=== PATIENT | female | born 1970 | race Caucasian/White ===

== ENCOUNTER → 2022-08-12 14:48 | Outpatient (BNVA) | payer OTHER, SELFPAY | PROVIDERS: PCP Internal Medicine; Visit Provider Internal Medicine Endocrinology, Diabetes & Metabolism | DX: Z13.89 Encounter for screening for other disorder (principal) ==

== ENCOUNTER 2022-08-12 15:37 | Outpatient (REF) | payer OTHER, SELFPAY ==
[2022-08-16 16:39] LABS: Thyrotropin Receptor Antibody 5.48 IU/L (<=2.00)
== END 2022-08-12 15:38 | disposition home or self-care (01) ==
LOC: HO.LAB 15:37
PROVIDERS: Internal Medicine Endocrinology, Diabetes & Metabolism; PCP Physician Assistant; Visit Provider Physician Assistant
DX: E05.90 Thyrotoxicosis, unspecified without thyrotoxic crisis or storm (principal)
CPT/HCPCS: 36415; 83520

== ENCOUNTER 2022-08-25 09:27 | Outpatient (REF) | payer OTHER, SELFPAY ==
[2022-08-25 11:29] LABS: Alanine Aminotransferase 31 U/L (0-31); Albumin Level 3.9 g/dL (3.5-5.0); Alkaline Phosphatase 92 U/L (39-117); Aspartate Amino Transferase 20 U/L (5-31); Bilirubin Direct 0.2 mg/dL (0.0-0.5); Bilirubin Total 0.6 mg/dL (0.0-1.0); Total Protein 6.9 g/dL (6.5-8.0)
[2022-08-25 12:06] LABS: Free T4 (Free Thyroxine) 1.82 ng/dL (0.71-1.85)
[2022-08-27 03:07] LABS: Triiodothyronine T3 Total 270 ng/dL (76-181)
== END 2022-08-25 09:28 | disposition home or self-care (01) ==
LOC: HO.LAB 09:27
PROVIDERS: Absent Provider Internal Medicine; PCP Internal Medicine; Visit Provider Internal Medicine Endocrinology, Diabetes & Metabolism
DX: E05.90 Thyrotoxicosis, unspecified without thyrotoxic crisis or storm (principal)
CPT/HCPCS: 36415; 80076; 84439; 84480

== ENCOUNTER → 2022-09-03 16:03 | Outpatient (BNVA) | payer OTHER, SELFPAY | PROVIDERS: PCP Internal Medicine; Visit Provider Internal Medicine Endocrinology, Diabetes & Metabolism | DX: Z13.89 Encounter for screening for other disorder (principal) ==

== ENCOUNTER 2022-09-27 09:10 | Outpatient (REF) | payer OTHER, SELFPAY ==
[2022-09-27 09:19] LABS: MANUAL DIFF FLAG NO
[2022-09-27 09:48] LABS: Basophils Absolute Auto 0.1 X10*3/uL (0.0-0.2); Basophils Percent Auto 0.9 % (0-2); Eosinophils Absolute Auto 0.2 X10*3/uL (0.0-0.4); Eosinophils Percent Auto 3.7 % (0-4); Hematocrit 43.2 % (37.0-47.0); Hemoglobin 14.1 g/dl (12.0-16.0); Imm Gran Abs Auto 0.02 X10*3/uL (0.00-0.03); Imm Gran Pct Auto 0.4 % (0.0-0.4); Lymphocytes Absolute Auto 1.4 X10*3/uL (1.2-4.9); Lymphocytes Percent Auto 23.9 % (20-40); Mean Corpuscular HGB Conc 32.6 g/dl (31.0-35.0); Mean Corpuscular Hemoglobin 27.2 pg (27.0-33.0); Mean Corpuscular Volume 83.2 fL (80.0-98.0); Monocytes Absolute Auto 0.4 X10*3/uL (0.1-1.2); Monocytes Percent Auto 7.8 % (2-11); Neutrophils Absolute Auto 3.6 x10*3/uL (2.0-8.3); Neutrophils Percent Auto 63.3 % (45-73); Platelet Count 365 X10*3/uL (160-400); Red Blood Count 5.19 X10*6/uL (4.20-5.50); Red Cell Distribution Width 13.3 % (11.0-16.0); White Blood Count 5.7 X10*3/uL (4.8-10.8)
[2022-09-27 10:24] LABS: Alanine Aminotransferase 66 U/L (0-31); Albumin Level 3.9 g/dL (3.5-5.0); Alkaline Phosphatase 108 U/L (39-117); Aspartate Amino Transferase 38 U/L (5-31); Bilirubin Direct 0.2 mg/dL (0.0-0.5); Bilirubin Total 0.5 mg/dL (0.0-1.0); Total Protein 6.7 g/dL (6.5-8.0)
[2022-09-27 10:40] LABS: Free T4 (Free Thyroxine) 1.13 ng/dL (0.71-1.85); Thyroid Stimulating Hormone < 0.01 uIU/mL (0.32-4.0)
[2022-09-29 05:33] LABS: Triiodothyronine T3 Free 3.9 pg/mL (2.3-4.2)
== END 2022-09-27 09:11 | disposition home or self-care (01) ==
LOC: HO.LAB 09:10
PROVIDERS: PCP Internal Medicine; Visit Provider Internal Medicine Endocrinology, Diabetes & Metabolism
DX: E05.90 Thyrotoxicosis, unspecified without thyrotoxic crisis or storm (principal)
CPT/HCPCS: 36415; 80076; 84439; 84443; 84481; 85025

== ENCOUNTER 2022-09-30 13:06 | Outpatient (REF) | payer OTHER, SELFPAY ==
[2022-10-01 18:39] LABS: Triiodothyronine T3 Total 154 ng/dL (76-181)
== END 2022-09-30 13:07 | disposition home or self-care (01) ==
LOC: HO.LAB 13:06
PROVIDERS: PCP Internal Medicine; Visit Provider Internal Medicine
DX: E05.90 Thyrotoxicosis, unspecified without thyrotoxic crisis or storm (principal)
CPT/HCPCS: 36415; 84480

== ENCOUNTER 2022-10-06 09:51 | Outpatient (REF) | payer OTHER, SELFPAY ==
[2022-10-06 11:14] LABS: Alanine Aminotransferase 62 U/L (0-31); Aspartate Amino Transferase 36 U/L (5-31)
== END 2022-10-06 09:52 | disposition home or self-care (01) ==
LOC: HO.LAB 09:51
PROVIDERS: PCP Internal Medicine; Visit Provider Internal Medicine Endocrinology, Diabetes & Metabolism
DX: E05.90 Thyrotoxicosis, unspecified without thyrotoxic crisis or storm (principal)
CPT/HCPCS: 36415; 84450; 84460

== ENCOUNTER 2022-11-04 10:40 | Outpatient (REF) | payer OTHER, SELFPAY ==
[2022-11-04 10:49] LABS: MANUAL DIFF FLAG NO
[2022-11-04 11:19] LABS: Basophils Absolute Auto 0.1 X10*3/uL (0.0-0.2); Eosinophils Absolute Auto 0.2 X10*3/uL (0.0-0.4); Eosinophils Percent Auto 3.1 % (0-4); Hematocrit 44.4 % (37.0-47.0); Hemoglobin 14.3 g/dl (12.0-16.0); Imm Gran Abs Auto 0.02 X10*3/uL (0.00-0.03); Imm Gran Pct Auto 0.3 % (0.0-0.4); Lymphocytes Absolute Auto 1.8 X10*3/uL (1.2-4.9); Lymphocytes Percent Auto 25.6 % (20-40); Mean Corpuscular HGB Conc 32.2 g/dl (31.0-35.0); Mean Corpuscular Hemoglobin 27.8 pg (27.0-33.0); Mean Corpuscular Volume 86.4 fL (80.0-98.0); Mean Platelet Volume 10.3 fL (9.4-12.3); Monocytes Absolute Auto 0.6 X10*3/uL (0.1-1.2); Monocytes Percent Auto 8.6 % (2-11); Neutrophils Absolute Auto 4.3 x10*3/uL (2.0-8.3); Neutrophils Percent Auto 61.4 % (45-73); Platelet Count 394 X10*3/uL (160-400); Red Blood Count 5.14 X10*6/uL (4.20-5.50); Red Cell Distribution Width 14.6 % (11.0-16.0); White Blood Count 7.1 X10*3/uL (4.8-10.8)
[2022-11-04 11:37] LABS: Alanine Aminotransferase 65 U/L (0-31); Albumin Level 4.1 g/dL (3.5-5.0); Alkaline Phosphatase 124 U/L (39-117); Aspartate Amino Transferase 30 U/L (5-31); Bilirubin Direct 0.1 mg/dL (0.0-0.5); Bilirubin Total 0.3 mg/dL (0.0-1.0); Total Protein 7.2 g/dL (6.5-8.0)
[2022-11-04 11:55] LABS: Free T4 (Free Thyroxine) 0.65 ng/dL (0.71-1.85); Thyroid Stimulating Hormone 0.59 uIU/mL (0.32-4.0)
[2022-11-06 08:03] LABS: Triiodothyronine T3 Free 2.6 pg/mL (2.3-4.2)
== END 2022-11-04 10:41 | disposition home or self-care (01) ==
LOC: HO.LAB 10:40
PROVIDERS: Visit Provider Internal Medicine Endocrinology, Diabetes & Metabolism
DX: E05.90 Thyrotoxicosis, unspecified without thyrotoxic crisis or storm (principal)
CPT/HCPCS: 36415; 80076; 84439; 84443; 84481; 85025

== ENCOUNTER → 2022-11-09 16:07 | Outpatient (BNVA) | payer OTHER, SELFPAY | PROVIDERS: PCP Internal Medicine; Visit Provider Internal Medicine Endocrinology, Diabetes & Metabolism ==

== ENCOUNTER 2022-12-02 07:03 | Outpatient (REF) | payer OTHER, SELFPAY | END 2022-12-02 07:04 | disposition home or self-care (01) | LOC: HO.LAB 07:03 | PROVIDERS: PCP Internal Medicine; Visit Provider Internal Medicine Endocrinology, Diabetes & Metabolism | DX: E05.90 Thyrotoxicosis, unspecified without thyrotoxic crisis or storm (principal) | CPT/HCPCS: 36415; 80076; 84439; 84443; 84481; 85025 ==

== ENCOUNTER 2023-01-04 07:02 | Outpatient (REF) | payer OTHER, SELFPAY ==
[2023-01-04 07:16] LABS: MANUAL DIFF FLAG NO
[2023-01-04 09:00] LABS: Basophils Absolute Auto 0.1 X10*3/uL (0.0-0.2); Basophils Percent Auto 1.2 % (0-2); Eosinophils Absolute Auto 0.2 X10*3/uL (0.0-0.4); Eosinophils Percent Auto 4.2 % (0-4); Hematocrit 44.2 % (37.0-47.0); Hemoglobin 14.4 g/dl (12.0-16.0); Imm Gran Abs Auto 0.01 X10*3/uL (0.00-0.03); Imm Gran Pct Auto 0.2 % (0.0-0.4); Lymphocytes Absolute Auto 1.5 X10*3/uL (1.2-4.9); Mean Corpuscular HGB Conc 32.6 g/dl (31.0-35.0); Mean Corpuscular Hemoglobin 28.3 pg (27.0-33.0); Monocytes Absolute Auto 0.5 X10*3/uL (0.1-1.2); Monocytes Percent Auto 9.8 % (2-11); Neutrophils Percent Auto 56.6 % (45-73); Platelet Count 369 X10*3/uL (160-400); Red Blood Count 5.08 X10*6/uL (4.20-5.50); Red Cell Distribution Width 13.5 % (11.0-16.0); White Blood Count 5.2 X10*3/uL (4.8-10.8)
[2023-01-04 10:53] LABS: Free T4 (Free Thyroxine) 0.78 ng/dL (0.71-1.85); Thyroid Stimulating Hormone 4.53 uIU/mL (0.32-4.0)
== END 2023-01-04 07:03 | disposition home or self-care (01) ==
LOC: HO.LAB 07:02
PROVIDERS: PCP Internal Medicine; Visit Provider Internal Medicine Endocrinology, Diabetes & Metabolism
DX: E05.90 Thyrotoxicosis, unspecified without thyrotoxic crisis or storm (principal)
CPT/HCPCS: 36415; 84439; 84443; 84481; 85025

== ENCOUNTER 2023-02-01 06:56 | Outpatient (REF) | payer OTHER, SELFPAY ==
[2023-02-01 07:04] LABS: MANUAL DIFF FLAG NO
[2023-02-01 07:50] LABS: Basophils Absolute Auto 0.1 X10*3/uL (0.0-0.2); Basophils Percent Auto 1.1 % (0-2); Eosinophils Absolute Auto 0.2 X10*3/uL (0.0-0.4); Eosinophils Percent Auto 4.1 % (0-4); Hematocrit 42.5 % (37.0-47.0); Hemoglobin 14.1 g/dl (12.0-16.0); Imm Gran Abs Auto 0.02 X10*3/uL (0.00-0.03); Imm Gran Pct Auto 0.4 % (0.0-0.4); Lymphocytes Absolute Auto 1.8 X10*3/uL (1.2-4.9); Lymphocytes Percent Auto 31.8 % (20-40); Mean Corpuscular HGB Conc 33.2 g/dl (31.0-35.0); Mean Corpuscular Hemoglobin 29.3 pg (27.0-33.0); Mean Corpuscular Volume 88.4 fL (80.0-98.0); Mean Platelet Volume 9.9 fL (9.4-12.3); Monocytes Absolute Auto 0.6 X10*3/uL (0.1-1.2); Monocytes Percent Auto 9.9 % (2-11); Neutrophils Absolute Auto 2.9 x10*3/uL (2.0-8.3); Neutrophils Percent Auto 52.7 % (45-73); Platelet Count 360 X10*3/uL (160-400); Red Blood Count 4.81 X10*6/uL (4.20-5.50); Red Cell Distribution Width 13.1 % (11.0-16.0); White Blood Count 5.6 X10*3/uL (4.8-10.8)
[2023-02-01 08:23] LABS: Alanine Aminotransferase 15 U/L (0-31); Albumin Level 3.8 g/dL (3.5-5.0); Alkaline Phosphatase 116 U/L (39-117); Aspartate Amino Transferase 14 U/L (5-31); Bilirubin Direct 0.1 mg/dL (0.0-0.5); Bilirubin Total 0.4 mg/dL (0.0-1.0)
[2023-02-01 08:40] LABS: Free T4 (Free Thyroxine) 0.94 ng/dL (0.71-1.85); Thyroid Stimulating Hormone 0.52 uIU/mL (0.32-4.0)
[2023-02-03 05:48] LABS: Triiodothyronine T3 Free 3.9 pg/mL (2.3-4.2)
== END 2023-02-01 06:57 | disposition home or self-care (01) ==
LOC: HO.LAB 06:56
PROVIDERS: PCP Internal Medicine; Visit Provider Internal Medicine Endocrinology, Diabetes & Metabolism
DX: E05.90 Thyrotoxicosis, unspecified without thyrotoxic crisis or storm (principal)
CPT/HCPCS: 36415; 80076; 84439; 84443; 84481; 85025

== ENCOUNTER 2023-04-18 11:31 | Outpatient (REF) | payer OTHER, SELFPAY ==
[2023-04-18 12:02] LABS: MANUAL DIFF FLAG NO
[2023-04-18 12:29] LABS: Basophils Absolute Auto 0.1 X10*3/uL (0.0-0.2); Basophils Percent Auto 0.8 % (0-2); Eosinophils Absolute Auto 0.2 X10*3/uL (0.0-0.4); Eosinophils Percent Auto 2.4 % (0-4); Hematocrit 43.7 % (37.0-47.0); Hemoglobin 14.2 g/dl (12.0-16.0); Imm Gran Abs Auto 0.02 X10*3/uL (0.00-0.03); Imm Gran Pct Auto 0.3 % (0.0-0.4); Lymphocytes Absolute Auto 1.8 X10*3/uL (1.2-4.9); Lymphocytes Percent Auto 25.3 % (20-40); Mean Corpuscular HGB Conc 32.5 g/dl (31.0-35.0); Mean Corpuscular Volume 86.2 fL (80.0-98.0); Mean Platelet Volume 9.9 fL (9.4-12.3); Monocytes Absolute Auto 0.7 X10*3/uL (0.1-1.2); Monocytes Percent Auto 9.5 % (2-11); Neutrophils Absolute Auto 4.5 x10*3/uL (2.0-8.3); Neutrophils Percent Auto 61.7 % (45-73); Platelet Count 392 X10*3/uL (160-400); Red Blood Count 5.07 X10*6/uL (4.20-5.50); Red Cell Distribution Width 12.9 % (11.0-16.0); White Blood Count 7.2 X10*3/uL (4.8-10.8)
[2023-04-18 13:16] LABS: Alanine Aminotransferase 14 U/L (0-31); Alkaline Phosphatase 123 U/L (39-117); Aspartate Amino Transferase 14 U/L (5-31); Bilirubin Direct < 0.2 mg/dL (0.0-0.5); Bilirubin Total 0.2 mg/dL (0.0-1.0); Total Protein 7.5 g/dL (6.5-8.0)
[2023-04-18 13:42] LABS: Free T4 (Free Thyroxine) 1.31 ng/dL (0.71-1.85); Thyroid Stimulating Hormone < 0.01 uIU/mL (0.32-4.0)
[2023-04-19 08:08] LABS: Triiodothyronine T3 Free 5.2 pg/mL (2.3-4.2)
== END 2023-04-18 11:32 | disposition home or self-care (01) ==
LOC: HO.LAB 11:31
PROVIDERS: PCP Internal Medicine; Visit Provider Internal Medicine Endocrinology, Diabetes & Metabolism
DX: E05.90 Thyrotoxicosis, unspecified without thyrotoxic crisis or storm (principal)
CPT/HCPCS: 36415; 80076; 84439; 84443; 84481; 85025

== ENCOUNTER 2023-05-26 07:08 | Outpatient (REF) | payer OTHER, SELFPAY ==
[2023-05-26 08:19] LABS: Alanine Aminotransferase 14 U/L (0-31); Albumin Level 3.8 g/dL (3.5-5.0); Alkaline Phosphatase 111 U/L (39-117); Aspartate Amino Transferase 12 U/L (5-31); Bilirubin Direct 0.2 mg/dL (0.0-0.5); Bilirubin Total 0.6 mg/dL (0.0-1.0); Total Protein 7.1 g/dL (6.5-8.0)
== END 2023-05-26 07:09 | disposition home or self-care (01) ==
LOC: HO.LAB 07:08
PROVIDERS: Visit Provider Internal Medicine Endocrinology, Diabetes & Metabolism
DX: E05.90 Thyrotoxicosis, unspecified without thyrotoxic crisis or storm (principal)
CPT/HCPCS: 36415; 80076

== ENCOUNTER 2023-05-31 08:43 | Outpatient (REF) | payer OTHER, SELFPAY ==
[2023-05-31 10:42] LABS: Free T4 (Free Thyroxine) 1.36 ng/dL (0.71-1.85); Thyroid Stimulating Hormone < 0.01 uIU/mL (0.32-4.0)
[2023-06-01 08:38] LABS: Triiodothyronine T3 Free 5.9 pg/mL (2.3-4.2)
== END 2023-05-31 08:44 | disposition home or self-care (01) ==
LOC: HO.LAB 08:43
PROVIDERS: PCP Internal Medicine; Visit Provider Internal Medicine Endocrinology, Diabetes & Metabolism
DX: E05.90 Thyrotoxicosis, unspecified without thyrotoxic crisis or storm (principal)
CPT/HCPCS: 36415; 84439; 84443; 84481

== ENCOUNTER 2023-05-31 10:46 | Outpatient (AMB) | payer OTHER, SELFPAY ==
[2023-05-31 10:48] VITALS: BP 104/82; PULSE 80; BMI 42.1
--- NOTE | 2023-05-31 10:48 | MHC.OFFVIS ---
Intake Vital Signs 05/31/23 10:48 Height 5 ft 7 in Weight 268 lb 8.368 oz BMI 42.1 BP 104/82 Blood Pressure Location Lt brachial Position Sitting Pulse 80 Pulse Source Pulse Oximeter Intake Visit Reasons: F/Up Graves DX-confirmed Intake Note: Patient present today for Graves DX follow up visit. 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 Denies sensation of swelling in the neck or difficulty breathing while lying flat. Denies any tenderness in the neck. Has palpitations, tremors, weight loss, frequent bowel movements. Denies any ocular complaints, blurred or double vision. Denies hair loss, dry skin, + heat, . Denies any history of head or neck irradiation. Denies any family history of thyroid cance or thyroid problems . Denies use of kelp or seaweed . No use of biotin No use of amiodarone Labs: Consistent with Graves disease Patient currently on methimazole 7.5 mg q.d. Not taking propanolol . Feeling better. No sx of hyperthyroidism PFSH Medical History (Updated 08/12/22 @ 15:04 by Ravinder Aquino MD) Hyperthyroidism Surgical History Hx of colonoscopy Family History Mother No known health problems Father Colon cancer Brother Colon cancer Social History Household Members: Spouse Household Members Other:: , 2 kids, mother Alcohol intake: current Alcohol intake frequency: does not drink Patient Tobacco Use Status: Never used Tobacco Second Hand Smoke Exposure: No Physical Exam Vital Signs: Last Vital Signs Pulse 80 05/31/23 10:48 BP 104/82 05/31/23 10:48 BMI result Body Mass Index 42.1 HEENT reveals absence of lid lag , stare or proptosis or eyebrow loss. Thyroid gland measure 25 gms . No nodules or tenderness palpated. There is no cervical adenopathy palpated. Lungs CTA. Heart S1, S2 Reg R/R -M/R/G. Abdominal exam benign. Skin exam reveals absence of dryness or thyroid dermopathy or vitiligo. Nail exam reveals absence of thyroid acropachy or oncholysis. Neurologic exam reveals 2+ reflexes . Muscle Strength is 5/5 proximally. There are no tremors in upper extremities. Assessment & Plan Assessment & Plan (1) Hyperthyroidism: Code(s): E0 - Thyrotoxicosis, unspecified without thyrotoxic crisis or storm Plan: This 52-year-old white female with a history of hyperthyroidism due to Graves disease. Currently being treated with methimazole 7.5 mg q.d.. She appears to be clinically euthyroid but has suppressed TSH and slightly increased free T4 dose increase Plan is to thyroid function studies,particularly free T3 and adjust MMI if necessary I went over different options of treatment including the continue use of methimazole versus surgery versus radioactive iodine treatment. Patient is opting stay on the anti-thyroid medication for now Orders: Orders Free T4 (Free Thyroxine) 6 Weeks E0. - Thyrotoxicosis, unspecified without thyrotoxic crisis or storm Thyroid Stimulating Hormone 6 Weeks E0. - Thyrotoxicosis, unspecified without thyrotoxic crisis or storm Triiodothyronine T3 Free 6 Weeks E0.90 - Thyrotoxicosis, unspecified without thyrotoxic crisis or storm Complete Blood Count Auto Diff 6 Weeks E0. - Thyrotoxicosis, unspecified without thyrotoxic crisis or storm Free T4 (Free Thyroxine) Today E0. - Thyrotoxicosis, unspecified without thyrotoxic crisis or storm Thyroid Stimulating Hormone Today E05.90 - Thyrotoxicosis, unspecified without thyrotoxic crisis or storm Triiodothyronine T3 Free Today E05.90 - Thyrotoxicosis, unspecified without thyrotoxic crisis or storm Liver Panel 6 Weeks E05.90 - Thyrotoxicosis, unspecified without thyrotoxic crisis or storm Coding Level of Care Code Est Pt Level 3 (57757) Diagnoses Hyperthyroidism E0
== END 2023-05-31 11:09 | disposition home or self-care (01) ==
PROVIDERS: PCP Internal Medicine; Visit Provider Internal Medicine Endocrinology, Diabetes & Metabolism
DX: E05.90 Thyrotoxicosis, unspecified without thyrotoxic crisis or storm (principal)
CPT/HCPCS: 99213

== ENCOUNTER 2023-07-29 08:22 | Outpatient (REF) | payer OTHER, SELFPAY ==
[2023-07-29 08:34] LABS: MANUAL DIFF FLAG NO
[2023-07-29 08:52] LABS: Basophils Absolute Auto 0.1 X10*3/uL (0.0-0.2); Basophils Percent Auto 1.1 % (0-2); Eosinophils Absolute Auto 0.2 X10*3/uL (0.0-0.4); Eosinophils Percent Auto 2.9 % (0-4); Hematocrit 43.8 % (37.0-47.0); Hemoglobin 14.5 g/dl (12.0-16.0); Imm Gran Abs Auto 0.02 X10*3/uL (0.00-0.03); Imm Gran Pct Auto 0.4 % (0.0-0.4); Lymphocytes Absolute Auto 1.2 X10*3/uL (1.2-4.9); Lymphocytes Percent Auto 22.1 % (20-40); Mean Corpuscular HGB Conc 33.1 g/dl (31.0-35.0); Mean Corpuscular Volume 84.6 fL (80.0-98.0); Mean Platelet Volume 9.8 fL (9.4-12.3); Monocytes Absolute Auto 0.4 X10*3/uL (0.1-1.2); Monocytes Percent Auto 7.7 % (2-11); Neutrophils Absolute Auto 3.7 x10*3/uL (2.0-8.3); Neutrophils Percent Auto 65.8 % (45-73); Platelet Count 349 X10*3/uL (160-400); Red Blood Count 5.18 X10*6/uL (4.20-5.50); Red Cell Distribution Width 13.1 % (11.0-16.0); White Blood Count 5.6 X10*3/uL (4.8-10.8)
[2023-07-29 09:49] LABS: Alanine Aminotransferase 11 U/L (0-31); Albumin Level 3.9 g/dL (3.5-5.0); Alkaline Phosphatase 132 U/L (39-117); Aspartate Amino Transferase 11 U/L (5-31); Bilirubin Direct 0.1 mg/dL (0.0-0.5); Bilirubin Total 0.4 mg/dL (0.0-1.0); Total Protein 7.1 g/dL (6.5-8.0)
[2023-07-29 09:53] LABS: Free T4 (Free Thyroxine) 0.95 ng/dL (0.71-1.85); Thyroid Stimulating Hormone 0.01 uIU/mL (0.32-4.0)
[2023-07-30 12:12] LABS: Triiodothyronine T3 Free 3.4 pg/mL (2.3-4.2)
== END 2023-07-29 08:23 | disposition home or self-care (01) ==
LOC: HO.LAB 08:22
PROVIDERS: PCP Internal Medicine; Visit Provider Internal Medicine Endocrinology, Diabetes & Metabolism
DX: E05.90 Thyrotoxicosis, unspecified without thyrotoxic crisis or storm (principal)
CPT/HCPCS: 36415; 80076; 84439; 84443; 84481; 85025

== ENCOUNTER 2023-09-21 06:49 | Outpatient (REF) | payer OTHER, SELFPAY ==
[2023-09-21 06:56] LABS: MANUAL DIFF FLAG NO
[2023-09-21 08:31] LABS: Basophils Absolute Auto 0.1 X10*3/uL (0.0-0.2); Basophils Percent Auto 1.3 % (0-2); Eosinophils Absolute Auto 0.2 X10*3/uL (0.0-0.4); Eosinophils Percent Auto 3.1 % (0-4); Hemoglobin 14.4 g/dl (12.0-16.0); Imm Gran Abs Auto 0.01 X10*3/uL (0.00-0.03); Imm Gran Pct Auto 0.2 % (0.0-0.4); Lymphocytes Absolute Auto 1.8 X10*3/uL (1.2-4.9); Lymphocytes Percent Auto 33.1 % (20-40); Mean Corpuscular HGB Conc 32.7 g/dl (31.0-35.0); Mean Corpuscular Hemoglobin 28.2 pg (27.0-33.0); Mean Corpuscular Volume 86.1 fL (80.0-98.0); Mean Platelet Volume 10.3 fL (9.4-12.3); Monocytes Absolute Auto 0.5 X10*3/uL (0.1-1.2); Monocytes Percent Auto 8.8 % (2-11); Neutrophils Absolute Auto 2.9 x10*3/uL (2.0-8.3); Neutrophils Percent Auto 53.5 % (45-73); Platelet Count 362 X10*3/uL (160-400); Red Blood Count 5.11 X10*6/uL (4.20-5.50); Red Cell Distribution Width 13.7 % (11.0-16.0); White Blood Count 5.4 X10*3/uL (4.8-10.8)
[2023-09-21 09:03] LABS: Alanine Aminotransferase 13 U/L (0-31); Albumin Level 3.9 g/dL (3.5-5.0); Alkaline Phosphatase 133 U/L (39-117); Aspartate Amino Transferase 14 U/L (5-31); Bilirubin Direct 0.1 mg/dL (0.0-0.5); Bilirubin Total 0.4 mg/dL (0.0-1.0); Total Protein 7.2 g/dL (6.5-8.0)
[2023-09-21 09:22] LABS: Free T4 (Free Thyroxine) 0.77 ng/dL (0.71-1.85); Thyroid Stimulating Hormone 1.47 uIU/mL (0.32-4.0)
[2023-09-22 07:34] LABS: Triiodothyronine T3 Free 2.8 pg/mL (2.3-4.2)
== END 2023-09-21 06:50 | disposition home or self-care (01) ==
LOC: HO.LAB 06:49
PROVIDERS: PCP Internal Medicine; Visit Provider Internal Medicine Endocrinology, Diabetes & Metabolism
DX: E05.90 Thyrotoxicosis, unspecified without thyrotoxic crisis or storm (principal)
CPT/HCPCS: 36415; 80076; 84439; 84443; 84481; 85025

== ENCOUNTER 2023-11-14 07:55 | Outpatient (AMB) | payer OTHER, SELFPAY ==
--- NOTE | 2023-11-14 08:02 | A.OFFVIS_ITS ---
Vital Signs 11/14/23 08:06 Height 5 ft 7 in Weight 265 lb BMI 41.5 BP 98/72 Blood Pressure Location Lt brachial Position Sitting Pulse 86 Pulse Source Pulse Oximeter Intake Visit Reasons: f/u hyperthyroidism-confirm Intake Note: Patient presents today for Hyperthyroidism follow up. 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 Denies sensation of swelling in the neck or difficulty breathing while lying flat. Denies any tenderness in the neck. Has palpitations, tremors, weight loss, frequent bowel movements. Denies any ocular complaints, blurred or double vision. Denies hair loss, dry skin, + heat, . Denies any history of head or neck irradiation. Denies any family history of thyroid cance or thyroid problems . Denies use of kelp or seaweed . No use of biotin No use of amiodarone Labs: Consistent with Graves disease Patient currently on methimazole 10 mg q.d. Not taking propanolol . Feeling better. No sx of hyperthyroidism . Feeling tired [facility] Medical History (Updated 08/12/22 @ 15:04 by Ravinder Aquino MD) Hyperthyroidism Surgical History Hx of colonoscopy Family History Mother No known health problems Father Colon cancer Brother Colon cancer Social History Household Members: Spouse Household Members Other:: , 2 kids, mother Alcohol intake: current Alcohol intake frequency: does not drink Patient Tobacco Use Status: Never used Tobacco Second Hand Smoke Exposure: No Physical Exam HEENT reveals absence of lid lag , stare or proptosis or eyebrow loss. Thyroid gland measure 25 gms . No nodules or tenderness palpated. There is no cervical adenopathy palpated. Lungs CTA. Heart S1, S2 Reg R/R -M/R/G. Abdominal exam benign. Skin exam reveals absence of dryness or thyroid dermopathy or vitiligo. Nail exam reveals absence of thyroid acropachy or oncholysis. Neurologic exam reveals 2+ reflexes . Muscle Strength is 5/5 proximally. There are no tremors in upper extremities. Assessment & Plan Assessment & Plan (1) Hyperthyroidism: Code(s): E05.90 - Thyrotoxicosis, unspecified without thyrotoxic crisis or storm Category: Medical Plan: This 53-year-old white female with a history of hyperthyroidism due to Graves disease. Currently being treated with methimazole 5 mg q.d.. She appears to be clinically and biochemically euthyroid Plan is to continue the current therapy. We will recheck thyroid function studies, CBC and liver enzymes along with TRAB antibody I went over different options of treatment including the continue use of methimazole versus surgery versus radioactive iodine treatment. Patient is opting stay on the anti-thyroid medication for now Orders: Orders Thyroid Stimulating Hormone Today E05.90 - Thyrotoxicosis, unspecified without thyrotoxic crisis or storm Complete Blood Count Auto Diff Today E05.90 - Thyrotoxicosis, unspecified without thyrotoxic crisis or storm Free T4 (Free Thyroxine) Today E05.90 - Thyrotoxicosis, unspecified without thyrotoxic crisis or storm Triiodothyronine T3 Free Today E05.90 - Thyrotoxicosis, unspecified without thyrotoxic crisis or storm Thyrotropin Receptor Antibody Today E05.90 - Thyrotoxicosis, unspecified without thyrotoxic crisis or storm Liver Panel Today E05.90 - Thyrotoxicosis, unspecified without thyrotoxic crisis or storm Coding Level of Care Code Est Pt Level 3 (36515) Diagnoses Hyperthyroidism E05.
[2023-11-14 08:06] VITALS: BP 98/72; PULSE 86; BMI 41.5
== END 2023-11-14 08:15 | disposition home or self-care (01) ==
PROVIDERS: PCP Internal Medicine; Visit Provider Internal Medicine Endocrinology, Diabetes & Metabolism
DX: E05.90 Thyrotoxicosis, unspecified without thyrotoxic crisis or storm (principal)
CPT/HCPCS: 99213

== ENCOUNTER → 2023-11-14 07:55 | Outpatient (BNVA) | payer OTHER, SELFPAY | PROVIDERS: PCP Internal Medicine; Visit Provider Internal Medicine Endocrinology, Diabetes & Metabolism ==

== ENCOUNTER 2023-11-18 07:08 | Outpatient (REF) | payer OTHER, SELFPAY ==
[2023-11-18 07:29] LABS: MANUAL DIFF FLAG NO
[2023-11-18 07:45] LABS: Basophils Absolute Auto 0.1 X10*3/uL (0.0-0.2); Basophils Percent Auto 1.2 % (0-2); Eosinophils Absolute Auto 0.3 X10*3/uL (0.0-0.4); Eosinophils Percent Auto 4.6 % (0-4); Hematocrit 41.7 % (37.0-47.0); Imm Gran Abs Auto 0.02 X10*3/uL (0.00-0.03); Imm Gran Pct Auto 0.4 % (0.0-0.4); Lymphocytes Absolute Auto 1.7 X10*3/uL (1.2-4.9); Lymphocytes Percent Auto 29.1 % (20-40); Mean Corpuscular HGB Conc 33.6 g/dl (31.0-35.0); Mean Corpuscular Hemoglobin 29.1 pg (27.0-33.0); Mean Corpuscular Volume 86.7 fL (80.0-98.0); Mean Platelet Volume 9.6 fL (9.4-12.3); Monocytes Absolute Auto 0.5 X10*3/uL (0.1-1.2); Monocytes Percent Auto 8.1 % (2-11); Neutrophils Absolute Auto 3.2 x10*3/uL (2.0-8.3); Neutrophils Percent Auto 56.6 % (45-73); Platelet Count 341 X10*3/uL (160-400); Red Blood Count 4.81 X10*6/uL (4.20-5.50); Red Cell Distribution Width 13.2 % (11.0-16.0); White Blood Count 5.7 X10*3/uL (4.8-10.8)
[2023-11-18 08:31] LABS: Alanine Aminotransferase 12 U/L (0-31); Albumin Level 3.7 g/dL (3.5-5.0); Alkaline Phosphatase 113 U/L (39-117); Aspartate Amino Transferase 13 U/L (5-31); Bilirubin Direct 0.2 mg/dL (0.0-0.5); Bilirubin Total 0.4 mg/dL (0.0-1.0); Total Protein 6.8 g/dL (6.5-8.0)
[2023-11-18 08:50] LABS: Thyroid Stimulating Hormone 2.81 uIU/mL (0.32-4.0)
[2023-11-19 07:34] LABS: Triiodothyronine T3 Free 2.7 pg/mL (2.3-4.2)
[2023-11-22 19:59] LABS: Thyrotropin Receptor Antibody 5.55 IU/L (<=2.00)
== END 2023-11-18 07:09 | disposition home or self-care (01) ==
LOC: HO.LAB 07:08
PROVIDERS: PCP Internal Medicine; Visit Provider Internal Medicine Endocrinology, Diabetes & Metabolism
DX: E05.90 Thyrotoxicosis, unspecified without thyrotoxic crisis or storm (principal)
CPT/HCPCS: 36415; 80076; 83520; 84439; 84443; 84481; 85025

== ENCOUNTER 2024-03-29 07:22 | Outpatient (REF) | payer OTHER, SELFPAY ==
[2024-03-29 07:42] LABS: MANUAL DIFF FLAG NO
[2024-03-29 08:03] LABS: Basophils Absolute Auto 0.1 X10*3/uL (0.0-0.2); Basophils Percent Auto 1.4 % (0-2); Eosinophils Absolute Auto 0.2 X10*3/uL (0.0-0.4); Eosinophils Percent Auto 4.3 % (0-4); Hemoglobin 14.2 g/dl (12.0-16.0); Imm Gran Abs Auto 0.02 X10*3/uL (0.00-0.03); Imm Gran Pct Auto 0.4 % (0.0-0.4); Lymphocytes Absolute Auto 1.4 X10*3/uL (1.2-4.9); Lymphocytes Percent Auto 26.8 % (20-40); Mean Corpuscular Hemoglobin 28.8 pg (27.0-33.0); Mean Corpuscular Volume 87.2 fL (80.0-98.0); Mean Platelet Volume 9.8 fL (9.4-12.3); Monocytes Absolute Auto 0.5 X10*3/uL (0.1-1.2); Monocytes Percent Auto 8.8 % (2-11); Neutrophils Percent Auto 58.3 % (45-73); Platelet Count 353 X10*3/uL (160-400); Red Blood Count 4.93 X10*6/uL (4.20-5.50); Red Cell Distribution Width 13.2 % (11.0-16.0); White Blood Count 5.1 X10*3/uL (4.8-10.8)
[2024-03-29 08:50] LABS: Alanine Aminotransferase 15 U/L (0-31); Albumin Level 3.9 g/dL (3.5-5.0); Alkaline Phosphatase 117 U/L (39-117); Aspartate Amino Transferase 15 U/L (5-31); Bilirubin Direct 0.1 mg/dL (0.0-0.5); Bilirubin Total 0.4 mg/dL (0.0-1.0); Total Protein 7.1 g/dL (6.5-8.0)
[2024-03-29 09:00] LABS: Free T4 (Free Thyroxine) 0.91 ng/dL (0.71-1.85)
[2024-03-30 08:37] LABS: Triiodothyronine T3 Free 3.2 pg/mL (2.3-4.2)
== END 2024-03-29 07:23 | disposition home or self-care (01) ==
LOC: HO.LAB 07:22
PROVIDERS: PCP Internal Medicine; Visit Provider Internal Medicine Endocrinology, Diabetes & Metabolism
DX: E05.90 Thyrotoxicosis, unspecified without thyrotoxic crisis or storm (principal)
CPT/HCPCS: 36415; 80076; 84439; 84443; 84481; 85025

== ENCOUNTER 2024-06-04 07:07 | Outpatient (REF) | payer OTHER, SELFPAY ==
[2024-06-04 09:43] LABS: Free T4 (Free Thyroxine) 1.05 ng/dL (0.71-1.85); Thyroid Stimulating Hormone 0.19 uIU/mL (0.32-4.0)
[2024-06-06 06:33] LABS: Triiodothyronine T3 Free 3.4 pg/mL (2.3-4.2)
[2024-06-08 21:23] LABS: Thyrotropin Receptor Antibody 5.99 IU/L (<=2.00)
== END 2024-06-04 07:08 | disposition home or self-care (01) ==
LOC: HO.LAB 07:07
PROVIDERS: PCP Internal Medicine; Visit Provider Internal Medicine Endocrinology, Diabetes & Metabolism
DX: E05.90 Thyrotoxicosis, unspecified without thyrotoxic crisis or storm (principal)
CPT/HCPCS: 36415; 83520; 84439; 84443; 84481

== ENCOUNTER 2024-06-05 07:54 | Outpatient (AMB) | payer OTHER, SELFPAY ==
--- OUTSIDE RECORDS SUMMARY | 2024-06-05 07:56 | XMS_ITS | Data Portability ---
Author Organization [facility], Main Office Address [address] [place] [address] Care Team Providers Care Hosiery Pairer Name Role Phone GERA JANG Primary Care Provider CHERI GODINEZ Datawarehouse Developer VIC SANTIAGO Referring Provider MEENU CHAMBERS JR Referring Provider TNAA ROSARIO Referring Provider [phone] Assessment Encounter Date Assessment Date Assessment LastModified by Organization Details LastModified Time 02/22/2020 02/22/2020 This service was provided using telemedicine. Patient consented to video & audio visit Patient was located at at home Provider was located in the office. No other persons participated in the telemedicine visit except for the patient unless otherwise indicated here. Total time of visit was 17 minutes. [email or web address] Not available 02/22/2020 13:35:49 Plan of Treatment Reminders Order Date Submit Date Provider Last Modified By Organization Details Last Modified Time Details Appointments None record ed. Lab vitami supriya D, 25-hyd summer, total, serum 2018 [facility], [address], [address], [place], [address], 9 15:55:34 CMP, serum or plasma 2018 019 [facility], [address], [address], [place], [address], 9 16:55:55 lipid panel, serum 2018 019 [facility], [address], [address], [place], [address], 9 15:37:54 TSH, serum or plasma 2018 019 [email or web address] [facility], [address], [address], [place], [address], 0 09:10:00 CBC w/ auto diff 2018 019 [email or web address] [facility], [address], [address], [place], [address], 0 09:10:00 TSH, serum or plasma 2022 023 [facility], [address], [address], [place], [address], 3 21:35:16 BMP, serum or plasma 2022 023 [facility], [address], [address], [place], [address], 3 20:42:52 CBC w/ auto diff 2022 023 [facility], [address], [address], [place], [address], 3 20:05:56 Referral nutrit ionist /dieti nafisa referr al 2018 019 [email or web address] Not available 9 13:20:41 Procedures None record ed. Surgeries None record ed. Imaging electr ocardi ogram 2022 023 [email or web address] In-Office Order, Internal Use Only DO Not Attach Compendium DO Not Attach Compendium, Do Not Delete/merge, [id number] 3 15:35:06 Medication Orders sertra line 100 mg tablet 2018 019 [facility] #0838, [address] [place], [address], 0 10:17:03 sertra line 50 mg tablet 2018 019 [facility] #0838, [address] [place], [address], 9 11:25:50 loraze mary ellen 0.5 mg tablet 2018 019 [facility] #0838, [address] [place], [address], 3 15:14:58 loraze mary ellen 0.5 mg tablet 2018 019 [facility] #0838, [address] [place], [address], 3 15:14:58 escita lopram 20 mg tablet 2018 019 [facility] #0838, [address] [place] [address], [address], 0 12:57:09 escita lopram 20 mg tablet 2019 020 [facility] #0838, [address] [place], [address], 0 12:57:09 doxycy garcia hyclat e 100 mg capsul e 2019 020 [email or web address] [facility]armacy #0838, [address] [place], [address], 3 14:37:17 ProAir HFA 90 mcg/ac tuatio n aeroso l inhale r 2019 020 [facility] #0838, [address] [place], [address], 3 15:21:09 loraze mary ellen 1 mg tablet 2022 023 [email or web address] [facility] #0838, [address] [place], [address], 3 07:36:07 Patient TargetsNo targets recorded. Patient Instructions Encounter Date Encounter Id Patient Instructions Last Modified By Organization Details Last Modified Time 04/11/2019 [id number] anxiety disorder: care instructions [email or web address] Not available 04/11/2019 11:41:16 starting a weight loss plan: care instructions [email or web address] Not available 04/11/2019 11:41:17 Nutrition Referral and Weight Management Follow-up Information [email or web address] Not available 04/11/2019 11:41:17 05/14/2019 [id number] anxiety disorder: care instructions [email or web address] Not available 05/14/2019 11:59:19 08/03/2022 [id number] anxiety disorder: care instructions [email or web address] Not available 08/03/2022 15:30:36 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 for Body mass index 30+ - obesity Referring Physician: Gera Jang, Family Medicine, Encounter Date: 04/11/2019 Results Created Date Observation Date Name Description Value Unit Range Abnormal Flag Note LastModifiedBy Organization Detail LastModifiedTime 04/19/2004/19/2019 lipid panel , serum cholesterol, total 185 mg/dL (<200) Not Available [facility] [address] [place], [address], 04/19/2019 15:37:54 04/19/20 19 04/19/2019 lipid panel , serum triglyceride 78 mg/dL (<150) Not Available [facility] [address] [place], [address], 04/19/2019 15:37:54 04/19/20 19 04/19/2019 lipid panel , serum HDL chol 74 mg/dL (>39) Not Available [facility] [address] [place], [address], 04/19/2019 15:37:54 04/19/20 19 04/19/2019 lipid panel , serum LDL cholesterol, calculated 95 mg/dL (0-130 ) Not Available [facility] [address] [place] [place], [address], 04/19/2019 15:37:54 04/19/20 19 04/19/2019 lipid panel , serum non HDL cholesterol (calc) 111 mg/dL (<160) Not Available [facility] [address] [place], [address], 04/19/2019 15:37:54 04/19/20 19 04/19/2019 vitam in D, 25-hy droxy , total , serum 25OH vitamin D 20.7 NG/mL (20-50 ) Serum 25OHD : 20 to 50 ng/mL : suffi cient in vitam in D. Refer ence: [facility] Data Brief : No.59 July: Vitam in D Statu s: Unite d State s: 2000- 2005 Not Available [facility] [address] [place], [address], 04/19/2019 15:55:34 04/19/20 19 04/19/2019 CMP, serum or plasm a glucose 88 mg/dL (70-99 ) Not Available [facility] [address] [place], [address], 04/19/2019 16:55:55 04/19/20 19 04/19/2019 CMP, serum or plasm a BUN 12 mg/dL (6-20) Not Available [facility] [address] [place], [address], 04/19/2019 16:55:55 04/19/20 19 04/19/2019 CMP, serum or plasm a creatinine 1.0 mg/dL (0.5-1 .0) Not Available [facility] [address] [place], [address], 04/19/2019 16:55:55 04/19/20 19 04/19/2019 CMP, serum or plasm a sodium 142 mmol/ L (133-1 45) Not Available [facility] [address] [place], [address], 04/19/2019 16:55:55 04/19/20 19 04/19/2019 CMP, serum or plasm a potassium 4.8 mmol/ L (3.6-5 .2) Not Available [facility] [address] [place], [address], 04/19/2019 16:55:55 04/19/20 19 04/19/2019 CMP, serum or plasm a chloride 104 mmol/ L (98-10 7) Not Available [facility] [address] [place], [address], 04/19/2019 16:55:55 04/19/20 19 04/19/2019 CMP, serum or plasm a bicarbonate 26 mmol/ L (22-29 ) Not Available [facility] [address] [place], [address], 04/19/2019 16:55:55 04/19/20 19 04/19/2019 CMP, serum or plasm a anion gap 12 (4-17) Not Available [facility] [address] [place], [address], 04/19/2019 16:55:55 04/19/20 19 04/19/2019 CMP, serum or plasm a albumin 4.2 gm/dL (3.4-4 .8) Not Available [facility] [address] [place], [address], 04/19/2019 16:55:55 04/19/2004/19/2019 CMP, serum or plasm a calcium 9.0 mg/dL (8.6-1 0.5) Not Available [facility] [address] [place], [address], 04/19/2019 16:55:55 04/19/20 19 04/19/2019 CMP, serum or plasm a bilirubin,to joan 0.3 mg/dL (0-1.2 ) Not Available [facility] [address] [place], [address], 04/19/2019 16:55:55 04/19/20 19 04/19/2019 CMP, serum or plasm a total protein 7.1 gm/dL (6.2-8 .2) Not Available [facility] [address] [place] [place], [address], 04/19/2019 16:55:55 04/19/20 19 04/19/2019 CMP, serum or plasm a Ag ratio 1.4 Not Available [facility] [address] [place], [address], 04/19/2019 16:55:55 04/19/20 19 04/19/2019 CMP, serum or plasm a AST 14 U/L (0-32) Not Available [facility] [address] [place], [address], 04/19/2019 16:55:55 04/19/20 19 04/19/2019 CMP, serum or plasm a alk phos 75 U/L (35-10 4) Not Available [facility] [address] [place], [address], 04/19/2019 16:55:55 04/19/20 19 04/19/2019 CMP, serum or plasm a ALT 10 U/L (0-33) Not Available [facility] [address] [place], [address], 04/19/2019 16:55:55 04/19/20 19 04/19/2019 CMP, serum or plasm a est GFR non 66 mL/mi n/1.7 3_M2 Creat inine based estim ated glome rular filtr ation rate (eGFR ) is calcu lated using the Chron ic Kidne y Disea se Epide miolo gy Colla borat ion (CKD- EPI). The CKD-E PI creat inine equat ion has not been valid ated in child jordy (<18 years ), pregn ant women or in some racia l or ethni c subgr oups other than Cauca sians and Afric an Ameri cans. Not Available [facility] [address] [place], [address], 04/19/2019 16:55:55 04/19/20 19 04/19/2019 CMP, serum or plasm a est GFR 76 mL/mi n/1.7 3_M2 Creat inine based estim ated glome rular filtr ation rate (eGFR ) is calcu lated using the Chron ic Kidne y Disea se Epide miolo gy Colla borat ion (CKD- EPI). The CKD-E PI creat inine equat ion has not been valid ated in child jordy (<18 years ), pregn ant women or in some racia l or ethni c subgr oups other than Cauca sians and Afric an Ameri cans. Not Available [facility] [address] [place], [address], 04/19/2019 16:55:55 08/04/19 23 08/03/2022 COMPL ETE CBC WITH DIFF WBC 8.7 K/mm3 (4.0-1 1.0) Not Available [facility] [address] [place], [address], 08/03/2022 20:05:56 08/04/19 23 08/03/2022 COMPL ETE CBC WITH DIFF RBC 4.99 M/mm3 (4.20- 5.40) Not Available [facility] [address] [place], [address], 08/03/2022 20:05:56 08/04/19 23 08/03/2022 COMPL ETE CBC WITH DIFF HGB 14.1 gm/dL (11.7- 15.5) Not Available [facility] [address] [place], [address], 08/03/2022 20:05:56 08/04/19 23 08/03/2022 COMPL ETE CBC WITH DIFF HCT 43.7 % (35.7- 45.8) Not Available [facility] [address] [place], [address], 08/03/2022 20:05:56 08/04/19 23 08/03/2022 COMPL ETE CBC WITH DIFF MCV 87.6 fL (80.0- 100.0) Not Available [facility] [address] [place], [address], 08/03/2022 20:05:56 08/04/19 23 08/03/2022 COMPL ETE CBC WITH DIFF MCH 28.3 pg (27.0- 34.0) Not Available [facility] [address] [place], [address], 08/03/2022 20:05:56 08/04/19 23 08/03/2022 COMPL ETE CBC WITH DIFF MCHC 32.3 g/dL (33.0- 37.0) low Not Available [facility] [address] [place], [address], 08/03/2022 20:05:56 08/04/19 23 08/03/2022 COMPL ETE CBC WITH DIFF plt 510 K/mm3 (150-4 60) high Not Available [facility] [address] [place], [address], 08/03/2022 20:05:56 08/04/19 23 08/03/2022 COMPL ETE CBC WITH DIFF RDW-SD 39.9 fL (<47.0 ) Not Available [facility] [address] [place], [address], 08/03/2022 20:05:56 08/04/19 23 08/03/2022 COMPL ETE CBC WITH DIFF MPV 10.5 fL (9.4-1 2.4) Not Available [facility] [address] [place] [place], [address], 08/03/2022 20:05:56 08/04/19 23 08/03/2022 COMPL ETE CBC WITH DIFF automated NRBC 0.0 #/100 _WBC' s Not Available [facility] [address] [place], [address], 08/03/2022 20:05:56 08/04/19 23 08/03/2022 COMPL ETE CBC WITH DIFF abs. NRBC 0.0 K/mm3 Not Available [facility] [address] [place], [address], 08/03/2022 20:05:56 08/04/19 23 08/03/2022 COMPL ETE CBC WITH DIFF neut # 6.4 K/mm3 (1.3-7 .0) Not Available [facility] [address] [place], [address], 08/03/2022 20:05:56 08/04/19 23 08/03/2022 COMPL ETE CBC WITH DIFF lymph # 1.3 K/mm3 (0.8-3 .1) Not Available [facility] [address] [place] [place], [address], 08/03/2022 20:05:56 08/04/19 23 08/03/2022 COMPL ETE CBC WITH DIFF mono# 0.8 K/mm3 (0.4-0 .9) Not Available [facility] [address] [place], [address], 08/03/2022 20:05:56 08/04/19 23 08/03/2022 COMPL ETE CBC WITH DIFF eo # 0.1 K/mm3 (0.0-0 .4) Not Available [facility] [address] [place] [place], [address], 08/03/2022 20:05:56 08/04/19 23 08/03/2022 COMPL ETE CBC WITH DIFF baso # 0.1 K/mm3 (0.0-0 .1) Not Available [facility] [address] [place] [place], [address], 08/03/2022 20:05:56 08/04/19 23 08/03/2022 COMPL ETE CBC WITH DIFF abs. imm gran 0.0 K/mm3 Not Available [facility] [address] [place] [place], [address], 08/03/2022 20:05:56 08/04/19 23 08/03/2022 COMPL ETE CBC WITH DIFF neut 73.2 % (44-76 ) Not Available [facility] [address] [place], [address], 08/03/2022 20:05:56 08/04/19 23 08/03/2022 COMPL ETE CBC WITH DIFF lymph 15.5 % (15-43 ) Not Available [facility] [address] [place], [address], 08/03/2022 20:05:56 08/04/19 23 08/03/2022 COMPL ETE CBC WITH DIFF monocyte 9.7 % (4.5-1 0.5) Not Available [facility] [address] [place], [address], 08/03/2022 20:05:56 08/04/19 23 08/03/2022 COMPL ETE CBC WITH DIFF eo 0.8 % (0-6) Not Available [facility] [address] [place], [address], 08/03/2022 20:05:56 08/04/19 23 08/03/2022 COMPL ETE CBC WITH DIFF baso 0.6 % (0-2) Not Available [facility] [address] [place], [address], 08/03/2022 20:05:56 08/04/19 23 08/03/2022 COMPL ETE CBC WITH DIFF imm gran 0.2 % Not Available [facility] [address] [place], [address], 08/03/2022 20:05:56 08/04/19 23 08/03/2022 BASIC METAB OLIC PANEL glucose 109 mg/dL (70-99 ) high Not Available [facility] [address] [place], [address], 08/03/2022 20:42:52 08/04/19 23 08/03/2022 BASIC METAB OLIC PANEL BUN 14 mg/dL (6-20) Not Available [facility] [address] [place] [place], [address], 08/03/2022 20:42:52 08/04/19 23 08/03/2022 BASIC METAB OLIC PANEL creatinine 0.8 mg/dL (0.5-1 .0) Not Available [facility] [address] [place] [place], [address], 08/03/2022 20:42:52 08/04/19 23 08/03/2022 BASIC METAB OLIC PANEL sodium 139 mmol/ L (133-1 45) Not Available [facility] [address] [place], [address], 08/03/2022 20:42:52 08/04/19 23 08/03/2022 BASIC METAB OLIC PANEL potassium 4.9 mmol/ L (3.6-5 .2) Not Available [facility] [address] [place], [address], 08/03/2022 20:42:52 08/04/19 23 08/03/2022 BASIC METAB OLIC PANEL chloride 103 mmol/ L (98-10 7) Not Available [facility] [address] [place], [address], 08/03/2022 20:42:52 08/04/19 23 08/03/2022 BASIC METAB OLIC PANEL bicarbonate 22 mmol/ L (22-29 ) Not Available [facility] [address] [place], [address], 08/03/2022 20:42:52 08/04/19 23 08/03/2022 BASIC METAB OLIC PANEL anion gap 14 (4-17) Not Available [facility] [address] [place] [place], [address], 08/03/2022 20:42:52 08/04/19 23 08/03/2022 BASIC METAB OLIC PANEL calcium 10.1 mg/dL (8.6-1 0.5) Not Available [facility] [address] [place] [place], [address], 08/03/2022 20:42:52 08/04/19 23 08/03/2022 BASIC METAB OLIC PANEL estimated GFR creatinine 95 mL/mi n/1.7 3_M2 Creat inine based estim ated glome rular filtr ation (eGFR ) in adult s is calcu lated using the Natio nal Kidne y Found ation recom cyndie d 2020 CKD-E PI equat ion. Estim ates GFR from serum creat inine , age and sex. Not Available [facility] [address] [place] [place], [address], 08/03/2022 20:42:52 08/04/19 23 08/03/2022 TSH TSH <0.01 uIU/m L (0.4-4 .2) low Not Available [facility] [address] [place], [address], 08/03/2022 21:35:16 08/04/19 23 08/04/2022 FREE T3 free T3 12.6 pg/mL (2.3-5 .0) high Not Available [facility] [address] [place], [address], 08/04/2022 09:16:00 08/04/19 23 08/04/2022 FREE T4 free T4 4.03 NG/dL (0.70- 1.80) high Not Available [facility] [address] [place], [address], 08/04/2022 09:16:02 08/04/19 23 08/04/2022 TOTAL T3 total T3 358.0 NG/dL (80-18 0) high Not Available [facility] [address] [place], [address], 08/04/2022 09:16:02 04/11/20 19 02/21/2019 MAMMO , scree kinga, digit al, bilat eral No observ ation record ed. [facility] [address], [place], [address], 04/11/2019 12:32:02 08/04/19 23 08/03/2022 elect rocar diogr am No observ ation record ed. [email or web address] In-Office Order Internal Use Only DO Not Attach Compendium DO Not Attach Compendium, Do Not Delete/merge, [id number] 08/03/2022 15:23:46 08/04/19 23 elect rocar diogr am No observ ation record ed. [facility] In-Office Order Internal Use Only DO Not Attach Compendium DO Not Attach Compendium, Do Not Delete/merge, [id number] 08/03/2022 17:21:31 Result Notes None recorded. Problems Name Problem SNOMED Code Status Onset Date Resolution Date Notes Provider Name and Address Organization Details Recorded Time Acute bronchit is 63576598 Completed 201101/03/2014 RECORDED 01/28/20 12 3:24PM BY JAVIER JI ON/ADDEN DUM Not Available [facility] 4 12:31:46 Acute pharyngi tis 853740639 Completed 201101/03/2014 RECORDED 01/28/20 12 3:24PM BY FARRUKH JIATI ON/ADDEN DUM Not Available [facility] 4 12:31:46 Acute sinusiti s 11192632 Completed 201101/03/2014 IMPRESSI ON: FAILED TREATMEN T WITH BIAXIN.; RECORDED 01/28/20 12 3:24PM BY JAVIER JI ON/ADDEN DUM Not Available [facility] 4 12:31:46 Cough 12840513 Completed 201101/03/2014 RECORDED 01/28/20 12 3:24PM BY JAVIER JI ON/ADDEN DUM Not Available [facility] 4 12:31:46 Degenera tion of interver tebral disc 05796044 Completed 201101/03/2014 RECORDED 01/28/20 12 3:24PM BY KITTY PALMER I, ANNOTATI ON/ADDEN DUM Not Available [facility] 4 12:31:46 Dizzines s and giddines s 729412465 Completed 201101/03/2014 RECORDED 01/28/20 12 3:24PM BY KITTY PALMER I, ANNOTATI ON/ADDEN DUM Not Available [facility] 4 12:31:47 Adult health examinat ion Completed 201101/03/2014 RECORDED 05/02/20 12 10:01AM BY OPAL HAMMOND, FARRUKHATI ON/ADDEN DUM Not Available [facility] 4 12:31:47 Administ ration of bacteria l and viral vaccine Completed 200701/03/2014 RECORDED 04/12/20 08 1:30PM BY PETER CHAPMAN, OFFICE VISIT Not Available [facility] 4 12:31:47 Otalgia 85440328 Completed 201101/03/2014 RECORDED 01/28/20 12 3:24PM BY FARRUKH JIATI ON/ADDEN DUM Not Available [facility] 4 12:31:47 Influenz a vaccine needed 99363072460 06 Completed 201101/03/2014 RECORDED 02/02/20 12 2:58PM BY KITTY PALMER I, OFFICE VISIT Not Available [facility] 4 12:31:47 Idiopath ic peripher al neuropat hy 63913958 Completed 200801/03/2014 RECORDED 03/15/20 09 10:19AM BY SINTIA HICKS MD, ANNOTATI ON/ADDEN DUM Not Available [facility] 4 12:31:47 Acute bronchit is 48102585 Completed 201101/04/2014 RECORDED 01/28/20 12 3:24PM BY KITTY PALMER I ANNOTATI ON/ADDEN DUM Not Available [facility] 4 03:40:28 Acute pharyngi tis 391959289 Completed 201101/04/2014 RECORDED 01/28/20 12 3:24PM BY KITTY SCHULTZK I, ANNOTATI ON/ADDEN DUM [facility] Available [facility] 4 03:40:28 Acute sinusiti s 30051401 Completed 201101/04/2014 IMPRESSI ON: FAILED TREATMEN T WITH BIAXIN.; RECORDED 01/28/20 12 3:24PM BY KITTY PALMER I ANNOTATI ON/ADDEN DUM Not Available [facility] 4 03:40:28 Cough 91660104 Completed 201101/04/2014 RECORDED 01/28/20 12 3:24PM BY FARRUKH JIATI ON/ADDEN DUM [facility] Available [facility] 4 03:40:28 Degenera tion of interver tebral disc 63976897 Completed 201101/04/2014 RECORDED 01/28/20 12 3:24PM BY KITTY PALMER I ANNOTATI ON/ADDEN DUM Not Available [facility] 4 03:40:28 Dizzines s and giddines s 516968095 Completed 201101/04/2014 RECORDED 01/28/20 12 3:24PM BY KITTY PALMER I ANNOTATI ON/ADDEN DUM Not Available [facility] 4 03:40:28 Adult health examinat ion Completed 201101/04/2014 RECORDED 05/02/20 12 10:01AM BY FARRUKH MCNEILLATI ON/ADDEN DUM Not Available [facility] 4 03:40:28 Administ ration of bacteria l and viral vaccine Completed 200701/04/2014 RECORDED 04/12/20 08 1:30PM BY PETER CHAPMAN, OFFICE VISIT Not Available [facility] 4 03:40:28 Otalgia 08275711 Completed 201101/04/2014 RECORDED 01/28/20 12 3:24PM BY KITTY PALMER I ANNOTATI ON/ADDEN DUM Not Available [facility] 4 03:40:28 Influenz a vaccine needed 36821957043 06 Completed 201101/04/2014 RECORDED 02/02/20 12 2:58PM BY KITTY PALMER I, OFFICE VISIT Not Available [facility] 4 03:40:28 Idiopath ic peripher al neuropat hy 43550996 Completed 200801/04/2014 RECORDED 03/15/20 09 10:19AM BY SINTIA HICKS MD, JAVIER ON/ADDEN DUM Not Available [facility] 4 03:40:28 Low back pain 989034619 Active Gera Jang MD [address] [facility] [address], [place], [address] , [facility] 5 12:14:46 Vitamin D deficien cy 96617078 Active 2017 Gera Jang MD [address] [facility] [address], [place], [address] , [facility] 8 19:36:58 Hyperthy roidism 20613402 Active 2022 Gera Jang MD [address] [facility] [address], [place], [address] , [facility] 3 12:44:41 Graves' disease 175366772 Active 2022 Seen by [facility] in [place]. Gera Jang MD [address] [facility] [address], [place], [address] , [facility] 3 09:25:21 Acute bronchit is 25001549 Completed 201112/11/2013 RECORDED 01/28/20 12 3:24PM BY JAVIER JI ON/ADDEN DUM Not Available [facility] 4 14:09:51 Acute pharyngi tis 227990003 Completed 201112/11/2013 RECORDED 01/28/20 12 3:24PM BY JAVIER JI ON/ADDEN DUM Not Available [facility] 4 14:09:51 Acute sinusiti s 29051524 Completed 201112/11/2013 IMPRESSI ON: FAILED TREATMEN T WITH BIAXIN.; RECORDED 01/28/20 12 3:24PM BY KITTY PALMER I ANNOTATI ON/ADDEN DUM Not Available [facility] 4 14:09:51 Anxiety state 852782008 Active 2012 No longer on meds and no longer an issue Gera Jang MD [address], [place], [address] , [facility] 6 11:21:32 Patient status finding 929920595 Completed 201202/17/2016 RECORDED 06/06/19 13 9:57AM BY KITTY PALMER I, OFFICE VISIT Gera Jang MD [address], [place], [address] , [facility] 6 11:20:59 Chest pain 00241000 Completed 201202/22/2020 Delroy kaur, [place] null, [facility] 0 12:57:33 Cough 21901284 Completed 201112/11/2013 RECORDED 01/28/20 12 3:24PM BY FARRUKH JIATI ON/ADDEN DUM Not Available [facility] 4 14:09:51 Degenera tion of interver tebral disc 37413354 Completed 201112/11/2013 RECORDED 01/28/20 12 3:24PM BY KITTY PALMER I ANNOTATI ON/ADDEN DUM Not Available [facility] 4 14:09:51 Dizzines s and giddines s 805662329 Completed 201112/11/2013 RECORDED 01/28/20 12 3:24PM BY KITTY PALMER I ANNOTATI ON/ADDEN DUM Not Available [facility] 4 14:09:51 Adult health examinat ion Completed 201112/11/2013 RECORDED 05/02/20 12 10:01AM BY FARRUKH MCNEILLATI ON/ADDEN DUM Not Available [facility] 4 14:09:51 Glaucoma [id number] Active 2012 Had surgery 2011; not on drops Gera Jang MD [address], [place], [id number] , [facility] 6 11:22:24 Administ ration of bacteria l and viral vaccine Completed 200712/11/2013 RECORDED 04/12/20 08 1:30PM BY PETER CHAPMAN, OFFICE VISIT Not Available [facility] 4 14:09:52 Otalgia [id number] Completed 201112/11/2013 RECORDED 01/28/20 12 3:24PM BY KITTY PALMER I, FARRUKHATI ON/ADDEN DUM Not Available [facility] 4 14:09:52 [place] ht [id number] Active 2012 [place], [facility] 0 12:57:39 Palpitat ions [id number] Active 2012 [place], [facility] 0 12:57:37 Influenz a vaccine needed [id number] Completed 201112/11/2013 RECORDED 02/02/20 12 2:58PM BY KITTY PALMER I, OFFICE VISIT Not Available [facility] 4 14:09:52 Idiopath ic peripher al neuropat hy [id number] Completed 200812/11/2013 RECORDED 03/15/20 09 10:19AM BY SINTIA HICKS MD, ANNOTATI ON/ADDEN DUM Not Available [facility] 4 14:09:52 Problem Notes None recorded. Procedures Surgical History Date Name Laterality Status Provider Name and Address Organization Details Recorded Time 06/14/19 19 [facility] 15:42:41 06/14/19 19 Colonoscopy completed Cintia [facility] 06/14/2018 15:42:32 Imaging Results Imaging Date Name Status LastModified by Organization Details LastModified Time 02/21/2019 MAMMO, screening, digital, bilateral completed donovan Garcia In [facility] [address], [place], [address], 04/11/2019 12:32:02 08/03/2022 electrocardiogram completed [email or web address] In-Offi ce Order Internal Use Only DO Not Attach Compendium DO Not Attach Compendium, Do Not Delete/merge, [id number] 08/03/2022 15:23:46 08/03/2022 electrocardiogram completed [email or web address] In-Off ice Order Internal Use Only DO Not Attach Compendium DO Not Attach Compendium, Do Not Delete/merge, [id number] 08/03/2022 17:21:31 Procedure Notes None recorded. Medical Equipment None Reported. Allergies Allergen ID Allergen Name Allergen Category Reaction Reaction Severity Criticality Documentation Date Start Date Code Code System Note Provider Name and Address Organization Details Recorded Time 1660 Medicinal product containin g penicilli n and acting as antibacte rial agent (product) medicatio n Not available Not available Not available 12/11/20132012 25072 05 SNOMED Delroy Joanne saez MA null, [facility] 0 12:56:48 68786 sertralin e medicatio n palpitati ons moderate Not available 05/14/2019 20006 RxNorm [facility] Gera rodríguez MD [address] [facility] [address], [place], [address], [facility] [place] 9 12:25:02 Medications Name Sig Start Date Stop Date Status Note LastModified by Organization Details LastModified Time multivita min tablet Take 1 tablet every day by oral route. 08/03 completed Not Available Not Available Not Available cyclobenz aprine 10 mg tablet Take 1 tablet 3 times a day by oral route for 7 days. 03/22 completed Not Available Not Available Not Available doxycycli ne hyclate 100 mg capsule Take 1 capsule twice a day by oral route for 10 days. 08/03 completed Not Available Not Available Not Available azithromy rylie 250 mg tablet USE DIRECTED 02/16 completed Not Available Not Available Not Available ibuprofen 800 mg tablet Take 1 tablet 3 times a day by oral route as needed for 15 days. 03/22 completed Not Available Not Available Not Available fluconazo le 150 mg tablet RADHA PRN YEAST VAGINITI S 03/20 completed RECORDED 04/16/20 09 4:25PM BY SINTIA HICKS MD, MEDICATI ON AUTO-ALENA CTIVATIO N; Not Available Not Available Not Available benzonata te 200 mg capsule TID 03/22 completed RECORDED 04/16/20 09 4:25PM BY SINTIA HICKS MD, MEDICATI ON AUTO-ALENA CTIVATIO N; Not Available Not Available Not Available metoprolo l succinate ER 50 mg tablet,ex tended release 24 hr active Not Available Not Available Not Available clarithro mycin 500 mg tablet DAILY 09/29 completed RECORDED 09/30/19 10 3:34PM BY DELROY CHAPMAN MA, OFFICE VISIT; Not Available Not Available Not Available clonazepa m 0.5 mg tablet THREE TIMES DAILY, NEEDED FOR STRESS 06/01 completed RECORDED 06/06/19 13 9:56AM BY PRADIP POWELL, MEDICATI ON AUTO-ALENA CTIVATIO N; Not Available Not Available Not Available sertralin e 100 mg tablet Take 1 tablet every day by oral route for 90 days. 06/26 completed Not Available Not Available Not Available atenolol 25 mg tablet TAKE 1 TABLET BY MOUTH TWICE A DAY active Not Available Not Available No t Available clindamyc in HCl 150 mg capsule 02/16 completed Not Available Not Available Not Available oxycodone -acetamin ophen 5 mg-325 mg tablet Take 1 tablet every 6 hours by oral route as needed for 3 days. 03/22 completed Not Available Not Available Not Available alprazola m 0.5 mg tablet DIRECTED 11/18 completed RECORDED 11/22/19 07 2:01PM BY GERA ABRAMS MD, MEDICATI ON AUTO-ALENA CTIVATIO N;BEFORE PROCEDUR E Not Available Not Available Not Available propranol ol 10 mg tablet active Not Available Not Available Not Available Fluticaso ne Propionat e (Inhal) 50 mcg/BLIST inhl powd QD, EACH NARES 04/14 completed RECORDED 04/16/20 09 4:25PM BY SINTIA HICKS MD, MEDICATI ON AUTO-ALENA CTIVATIO N; Not Available Not Available Not Available citalopra m 20 mg tablet DAILY 2012 active RECORDED 06/06/19 13 10:47AM BY GERA ABRAMS MD, OFFICE VISIT; Not Available Not Available Not Available lorazepam 0.5 mg tablet Take 1 tablet 3 times a day by oral route as needed for 30 days. 06/05 completed Not Available Not Available Not Available meclizine 25 mg tablet Take 1 tablet 3 times a day by oral route for 7 days. 04/11 completed Not Available Not Available Not Available ergocalci ferol (vitamin D2) 1,250 mcg (50,000 unit) capsule TAKE 1 CAPSULE BY MOUTH WEEKLY (EVERY 7 DAYS) 04/11 completed Not Available Not Available Not Available lorazepam 1 mg tablet TAKE 1 TABLET BY MOUTH TWICE A DAY NEEDED FOR 7 DAYS active Not Available Not Available No t Available levofloxa rylie 500 mg tablet QD 03/25 completed RECORDED 04/16/20 09 4:25PM BY SINTIA HICKS MD, MEDICATI ON AUTO-ALENA CTIVATIO N; Not Available Not Available Not Available albuterol sulfate HFA 90 mcg/actua tion aerosol inhaler INHALE 2 PUFFS BY MOUTH EVERY 4 HOURS NEEDED FOR 10 DAYS 08/03 completed Not Available Not Available Not Available methimazo le 10 mg tablet TAKE 3 TABLETS BY MOUTH EVERY DAY active Not Available Not Available No t Available sertralin e 50 mg tablet Take 1 tablet every day by oral route for 7 days. 05/14 completed Not Available Not Available Not Available atenolol 50 mg tablet TAKE 1 TABLET BY MOUTH TWICE A DAY active Not Available Not Available No t Available oxycodone 5 mg tablet 02/16 completed Not Available Not Available Not Available azithromy rylie 500 mg tablet 07/04 completed Not Available Not Available Not Available escitalop sherwin 20 mg tablet Take 1 tablet every day by oral route for 90 days. 12/28 completed Not Available Not Available Not Available GaviLyte- N 420 gram oral solution 03/05 completed Not Available Not Available Not Available Vitals Date Recorded Body height Body mass index (BMI) Body weight Heart rate Oxygen saturation Oxygen saturation in Arterial blood by Pulse oximetry Body temperature Systolic blood pressure Diastolic blood pressure Provider Name and Address Organization Details Last Updated DateTime 9 170.18 cm 37.9 kg/m2 172765. 35 g 72 /min 98 % 98 % 98.4 [degF] 116 mm[Hg] 62 mm[Hg] Kitty Lindquist [facility] 9 11:02:18 Date Recorded Body height Body mass index (BMI) Body weight Heart rate Oxygen saturation Oxygen saturation in Arterial blood by Pulse oximetry Body temperature Systolic blood pressure Diastolic blood pressure Provider Name and Address Organization Details Last Updated DateTime 9 170.18 cm 38.7 kg/m2 028615. 32 g 75 /min 98 % 98 % 98.6 [degF] 114 mm[Hg] 72 mm[Hg] Kitty Lindquist [facility] 9 11:25:18 Date Recorded Body height Body mass index (BMI) Body weight Heart rate Oxygen saturation Oxygen saturation in Arterial blood by Pulse oximetry Body temperature Systolic blood pressure Diastolic blood pressure Provider Name and Address Organization Details Last Updated DateTime 0 170.18 cm 39.5 kg/m2 708812. 28 g 60 /min 98 % 98 % 98.3 [degF] 118 mm[Hg] 62 mm[Hg] Kitty Lindquist [facility] 0 10:17:58 Date Recorded Body height Provider Name an d Address Organization Details Last Updated DateTime 02/22/2020 170.18 cm Delroy Young MA [facility] 02/22/2020 12:56:37 Date Recorded Body height Body mass index (BMI) Body weight Heart rate Oxygen saturation Oxygen saturation in Arterial blood by Pulse oximetry Body temperature Systolic blood pressure Diastolic blood pressure Provider Name and Address Organization Details Last Updated DateTime 3 170.18 cm 41.3 kg/m2 964656. 59 g 119 /min 98 % 98 % 98.7 [degF] 130 mm[Hg] 83 mm[Hg] Geovanna Jefferson MA [facility] 3 14:39:52 Social History Question Answer Notes LastModified by Organizat ion Details LastModified Time Tobacco Smoking Status Never Smoker Not Available [employer] 04/01/2020 03:36:36 Do You Have An Advance Directive? Yes [id number] Information not available 04/01/2020 What Is Your Level Of Alcohol Consumption? Occasional [id number] Information not available 04/01/2020 Is Blood Transfusion Acceptable In An Emergency? Yes [id number] Information not available 04/01/2020 What Is Your Level Of Caffeine Consumption? Occasional [id number] Information not available 04/01/2020 How Much Tobacco Do You Chew? None [id number] Information not available 04/01/2020 Are You Currently Employed? Yes [id number] Information not available 04/01/2020 What Type Of Diet Are You Following? REGULAR [id number] Information not available 04/01/2020 Which Illicit Or Recreational Drugs Have You Used? None [id number] Information not available 04/01/2020 Do You Or Have You Ever Used E-cigarettes Or Vape? Never Used Electronic Cigarettes [id number] Information not available 04/01/2020 What Is Your Occupation? [employer] [id number] Information not available 04/01/2020 Live Alone Or With Others? With Others (Rocco) And Two Children [employer] Information not available 11/27/2014 Do You Take Precautions To Prevent Distracted Driving? Yes [employer] Information not available 02/17/2016 How Often Do You Need To Have Someone Help You When You Read Instructions, Pamphlets, Or Other Written Material From Your Doctor Or Pharmacy? Never [employer] Information not available 02/17/2016 Have You Served In The ? No [employer] Information not available 02/17/2016 Have You Or Anyone In Your Household Had Any Of The Following Symptoms In The Last 14 Days: Sore Throat, Cough, Chills, Body Aches For Unknown Reasons, Shortness Of Breath For Unknown Reasons, Loss Of Smell, Loss Of Taste, Fever At Or Greater Than 100 Degrees Fahrenheit? Yes Cough Information not available 02/22/2020 Are You Or Anyone In Your Household A Health Care Provider Or Emergency Responder? No Information not available 02/22/2020 To The Best Of Your Knowledge Have You Been In Close Proximity To Any Individual Who Tested Positive For COVID-19? No Information not available 02/22/2020 What Was The Date Of Your Most Recent Tobacco Screening? 02/22/2020 [id number] Information not available 04/01/2020 How Many Children Do You Have? 2 Son Born 2003 And Daughter Born 2005 [id number] Information not available 04/01/2020 Do You Use Protection During Sex? No [id number] Information not available 04/01/2020 Seat Belts Used Routinely Yes [employer] Information not available 02/17/2016 Are You Sexually Active? Yes [id number] Information not available 04/01/2020 Smoke Alarm In Home Yes [employer] Information not available 02/17/2016 At What Age Did You Start Smoking Tobacco? 1 [id number] Information not available 04/01/2020 Are You Passively Exposed To Smoke? No [employer] Information not available 02/17/2016 Do You Or Have You Ever Used Smokeless Tobacco? Never Used Smokeless Tobacco [id number] Information not available 04/01/2020 How Much Tobacco Do You Smoke? No [id number] Information not available 04/01/2020 Do You Use Sunscreen Routinely? Yes [id number] Information not available 04/01/2020 How Many Years Have You Smoked Tobacco? 0 [id number] Information not available 04/01/2020 Sex: Unknown Functional Status Question Answer Note LastModified by Organizat ion Details LastModified Time Are you able to care for yourself? Yes [id number] Information not available 04/01/2020 What is your exercise level? Occasional [id number] Information not available 04/01/2020 Mental Status None recorded. Family History Relationship Description Onset Age of this Age Resolved Age Notes LastModified by Organization Details LastModified Time Father Malignant tumor of colon 62 [email or web address] Not available 01/29 11:25:40 Paternal Grandmother Malignant lymphoma [email or web address] Not available 01/29 11:26:21 Brother Malignant tumor of colon 50 [email or web address] Not available 03/30 11:24:55 Medical History No medical history recorded. Gynecological History Statement/Question Response Date of Last Pap Smear Date of Last Colonoscopy 06/14/2018 Most Recent Mammogram Obstetrics History GPAL:G 0 P 0 0 0 0 Immunizations Vaccine Type Date Status Note Provider Nam e and Address Organization Details Recorded Time Influenza, injectable,charan valent, preservative free, pediatric 0 [facility] 14:32:24 Influenza, MDCK, quadrivalent, PF 2 [facility] 14:32:24 COVID-19, mRNA, LNP-S, PF, 30 mcg/0.3 mL dose 1 completed PENG Fowler [facility] 08/03/2022 14:32:24 COVID-19, mRNA, LNP-S, PF, 30 mcg/0.3 mL dose 1 completed PENG Fowler [facility] 08/03/2022 14:32:24 COVID-19, mRNA, LNP-S, PF, 30 mcg/0.3 mL dose 1 [facility] 14:32:24 COVID-19, mRNA, LNP-S, bivalent, PF, 30 mcg/0.3 mL dose 2 [facility]22 14:32:24 Influenza, split virus, quadrivalent, PF 1 [facility]22 14:32:25 Tdap 8 completed Not Available [facility] 12/11/2013 13:29:34 Influenza, split virus, quadrivalent, PF 6 completed Not Available [facility] 06/16/2019 02:22:04 Influenza, split virus, quadrivalent, PF 8 completed Not Available [facility] 06/16/2019 02:22:16 Td (adult), 2 Lf tetanus toxoid, preservative free, adsorbed 8 completed Not Available [facility] 06/16/2019 02:21:30 Influenza, split virus, quadrivalent, PF 9 completed Not Available [facility] 06/16/2019 02:22:10 Past Encounters Encounter ID Performer Location Encounter Start Date Encounter Closed Date Diagnosis/Indication Diagnosis SNOMED-CT Code Diagnosis ICD10 Code Diagnosis Note [id number] [facility] [address] [facility] [place] [address] 11/17/2006 00:00:00 [id number] [facility] [address] [facility] [place] [address] 12/07/2006 00:00:00 [id number] [facility] [address] [facility] [place] [address] 04/12/2008 00:00:00 [id number] [facility] [address] [facility] [place] [address] 03/12/2009 00:00:00 [id number] [facility] [address] [facility] [place] [address] 03/15/2009 00:00:00 [id number] [facility] [address] [facility] [place] [address] 04/29/2009 00:00:00 [id number] [facility] [address] [facility] [place] [address] 09/29/2009 00:00:00 [id number] [facility] [address] [facility] [place] [address] 10/29/2010 00:00:00 [id number] [facility] [address] [facility] [place] [address] 04/06/2011 00:00:00 [id number] [facility] [address] [facility] [place] [address] 06/28/2011 00:00:00 [id number] [facility] [address] [facility] [place], [place] [address] 07/12/2011 00:00:00 [id number] [facility] [address] [facility] [place], [place] [address] 02/02/2012 00:00:00 [id number] [facility] [address] [place] [address],[address] [place], [place] [address] 05/02/2012 00:00:00 [id number] [address] [address] [address] [place] [address],[address] [place], [place] [address] 06/06/2012 00:00:00 [id number] Kitty Lindquist Main Office [address] [facility] [address] [place] [address] 11/27/2014 10:40:00 11/27/2014 11:33:20 Low back pain 642823610 appears to be muscular. She will call next week if not improving. [id number] Gera Jang MD Main Office [address] [facility] [address] [place] [address] 02/17/2016 10:34:54 02/17/2016 11:41:46 Adult health examination 329682687 Z00.00 Needs infl uenza immunization 440430721 Z23 Screening for malignant neoplasm of colon 549349281 Z12.11 Her father had colon cancer in his late 50's. [id number] Gera Jang MD Main Office [address] [facility] [address] [place] [address] 07/04/2017 14:31:16 07/04/2017 15:29:11 Low back pain 405906976 M54.5 appears to be muscular. She will call next week if not improving. [id number] Jodee cantu Main Office [address] [facility] [address] [place] [address] 03/22/2018 15:04:48 03/22/2018 16:04:36 Needs influenza immunization 922848496 Z23 Dysuria 92473478 R30.0 Abdominal pain 33649901 R10.9 Unclear etiology L. mid back and mid abdomina; discomfort . Pt. reassured at this point examinatio n and urine test are completely normal./ Will order labs and xrays to investigat e further. Acute thor acic back pain 631495458 M54.6 ? pleurisy. L./ side. [id number] Gera Jang MD Main Office [address] [address] 04/07/2018 10:16:55 04/07/2018 11:06:15 Adult health examination 059755063 Z00.00 We will update her immunizati ons. 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 I encouraged her to make an appointmen t for a colonoscop y given her strong family hx. Requires a tetanus booster 816112236 Z23 Screening for malignant neoplasm of colon 993820983 Z12.11 Her father had colon cancer in his late 50's. Flank pain 221883928 R10 .9 [id number] Gera Jang MD Main Office [address] [address] 03/05/2019 15:13:02 03/05/2019 16:22:28 Benign paroxysmal positional vertigo 957823597 H81.10 Needs infl uenza immunization 955731462 Z23 Anxiety 76558150 F41.9 [id number] Gera Jang MD Main Office [address] [address] 04/11/2019 10:43:44 04/11/2019 11:42:04 Adult health examination 965599480 Z00.00 She is UTD with immunizati ons, colonoscop y, INSURANCE SALESPERSON care and mammogram. Anxiety state 801316207 F41.1 Will start a daily med. Vitamin D deficiency 347 96171 E55.9 Body mass index 30+ - obesity 989412016 E66.01 Z68.35 [id number] Gera Jang MD Main Office [address] [address] 05/14/2019 11:13:50 05/14/2019 12:06:01 Anxiety state 523906268 F41.1 Will stop sertraline because of muscle twitching and start lexapro. If not helpful or develops SE's we will refer her to Dr Matthew for a med consult. [id number] Gera Jang MD Main Office [address] [facility] [address] [place] [address] 06/26/2019 09:59:40 06/26/2019 10:58:18 Anxiety state 711798465 F41.1 Doing much better on lexapro and anxiety is no longer a problem. Could not tolerate zoloft because of muscle twitching. [id number] Glenda Copelandzachary [facility] [address] [facility] [address] [place] [address] 02/22/2020 12:51:33 02/22/2020 14:23:09 Asthmatic bronchitis 667908068 J45.909 Rest, hydration, start antibiotic and inhaler. If not improving pt will call back and consider adding oral steroid burst or taper. [id number] Gera Jang MD Main Office [address] [address] [place] [address] 08/03/2022 14:09:21 08/03/2022 15:35:05 Tachycardia 4272654 R00.0 Sinus tachycardi a most likely secondary to anxiety. Possible relation to previous viral infection. Will treat her anxiety. No meds specifical ly for her heart rate just yet. Generalize d anxiety disorder 43909179 F41.1 This has been an intermitte nt problem. She has tried zoloft and celexa in the past but stopped both because of SE's (which my have actually been an exacerbati on of her anxiety). Will try an SNRI if this persists. Health Concerns Section Related Observation LastModified by Organization Detai ls LastModified Time None Recorded Concern Status LastModified by Organization Details LastModified Time None Recorded Advance Directives Directive Y: Payers Encounter Date Sequence Insurance Name Policy Number Policy Pradhan Covered Member ID Pradhan Member ID Guarantor Name 04/11/2019 1 [place] [id number] Rocco Whitmore [id number] Rocco Whitmore 05/14/2019 1 [place] [id number] Rocco Whitmore [id number] Rocco Whitmore 06/26/2019 1 [place] [id number] Rocco Whitmore [id number] Rocco Whitmore 02/22/2020 1 [place] [id number] Rocco Whitmore [id number] Rocco Whitmore 08/03/2022 1 [employer] (PPO) [id number] Suzy Whitmore [id number] Rocco Whitmore Notes Date Note Type Note Provider Name and Address Organization Details Recorded Time 04/11/2019 text/html Generic HPI TemplateReported bypatient.Notes:She takes lorazepam prn anxiety but which helps but she feels that her anxiety is getting worse and would like to start a daily med. Gera Jang MD [facility] [address], [address], [facility] 04/11/2019 12:32:54 05/14/2019 text/html She has seen a l ittle improvement since taking the sertraline but has been getting muscle twitching especially at night. She had trouble sleeping last night because of it. She would like to try a different med. In addition she still has the feeling of pressure in her head and feeling shaky. She also started having a panic attack which improved by 90% with a lorazepam. Gera Jang MD [facility] [address], [address], [facility] 05/14/2019 12:47:30 06/26/2019 text/html Anxiety/Depressi onRepo rted bypatient.Quality:symp toms improved Severity:denies suicidal ideations; able to maintain relationships; does not interfere with activities of daily living Context:no major life stressors Modifying Factors:social support; medications as directed Associated Symptoms:no significant weight gain; no significant weight loss; no visual/auditory hallucinations; mood good; no anxiety; no crying spells; no panic; sleeping well; appetite good; energy good; no apathyNotes:Muscle twitching went away after stopping the zoloft Gera Jang MD [facility] [address], [address], [facility] 06/26/2019 11:01:08 02/22/2020 text/html TH visit for cou gh and wheezing with some slight SOB. She has had a cold for 2 weeks and the nasal congestion is better but tight cough has persisted. Very mild SOB when coughing, wheezing intermittently. No hx smoking, asthma or copd. No leg pain or swelling, no chest pain Glenda Leungwendy kirsten, [facility] 02/22/2020 13:37:58 08/03/2022 text/html She started with a viral infection a couple of weeks ago including fever, cough, fatigue and congestion. She had exposures and tested negative for COVID a couple of times. Her viral infection has resolved but over the last week she has been having an increased heart rate of which she is aware. She denies any meds either OTC or prescription. Denies CP/pressure or SOB. Denies alcohol or drug use. Feeling anxious most of the time and her legs are shaky when she is sitting but gait is normal and no shaking when walking. She has a h/o intermittent anxiety but was unable to tolerate zoloft or celexa in the past. Gera Jang MD [address] [address], [place], [address], [facility] [place] 08/04/2022 07:45:52 OBGyn Episode No OBEpisode recorded.
--- NOTE | 2024-06-05 08:00 | A.OFFVIS_ITS ---
Vital Signs 06/05/24 08:01 Height 5 ft 7 in Weight 274 lb 0.553 oz BMI 42.9 BP 112/62 Blood Pressure Location Lt brachial Position Sitting Pulse 86 Pulse Source Pulse Oximeter Intake Visit Reasons: f/u Hyperthyroidism Intake Note: Patient present today for Hyperthyroidism follow up. 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 Denies sensation of swelling in the neck or difficulty breathing while lying flat. Denies any tenderness in the neck. Has palpitations, tremors, weight loss, frequent bowel movements. Denies any ocular complaints, blurred or double vision. Denies hair loss, dry skin, + heat, . Denies any history of head or neck irradiation. Denies any family history of thyroid cance or thyroid problems . Denies use of kelp or seaweed . No use of biotin No use of amiodarone Labs: Consistent with Graves disease Patient currently on methimazole 5 mg q.d. but misses doses Not taking propanolol . Feeling fine . No sx of hyperthyroidism . [facility] Medical History (Updated 08/12/22 @ 15:04 by Ravinder Aquino MD) Hyperthyroidism Surgical History Hx of colonoscopy Family History Mother No known health problems Father Colon cancer Brother Colon cancer Social History Household Members: Spouse Household Members Other:: , 2 kids, mother Alcohol intake: current Alcohol intake frequency: does not drink Patient Tobacco Use Status: Never used Tobacco Second Hand Smoke Exposure: No Physical Exam Vital Signs: BMI result Body Mass Index 42.9 Const Other: Thyroid gland is larger size weighs about 25 g . There are no thyroid nodules palpated Assessment & Plan Assessment & Plan (1) Hyperthyroidism: Code(s): E05.90 - Thyrotoxicosis, unspecified without thyrotoxic crisis or storm Category: Medical Plan: This 53-year-old white female with a history of hyperthyroidism due to Graves disease. Currently being treated with methimazole 5 mg q.d.. She appears to be clinically euthyroid but has a suppressed TSH Plan is to recheck thyroid function studies in 4 weeks patient has consistently been in the methimazole 5 mg. I went over different options of treatment including the continue use of methimazole versus surgery versus radioactive iodine treatment. Patient is opting stay on the anti-thyroid medication for now Orders: Orders Thyroid Stimulating Hormone 4 Weeks E05.90 - Thyrotoxicosis, unspecified without thyrotoxic crisis or storm Triiodothyronine T3 Free 4 Weeks E05.90 - Thyrotoxicosis, unspecified without thyrotoxic crisis or storm Free T4 (Free Thyroxine) 4 Months E05.90 - Thyrotoxicosis, unspecified without thyrotoxic crisis or storm Medications: Refilled methimazole 5 mg (1/2 x 10 mg) PO DAILY 42 tabs 3RF Coding Level of Care Code Est Pt Level 3 (28782) Diagnoses Hyperthyroidism E05.90
[2024-06-05 08:01] VITALS: BP 112/62; PULSE 86; BMI 42.9
== END 2024-06-05 08:19 | disposition home or self-care (01) ==
PROVIDERS: PCP Internal Medicine; Visit Provider Internal Medicine Endocrinology, Diabetes & Metabolism
DX: E05.90 Thyrotoxicosis, unspecified without thyrotoxic crisis or storm (principal)
CPT/HCPCS: 99213

== ENCOUNTER 2024-07-19 07:01 | Outpatient (REF) | payer OTHER, SELFPAY ==
--- OUTSIDE RECORDS SUMMARY | 2024-07-19 07:03 | XMS_ITS | Data Portability ---
Author Organization [facility], Main Office Address [address] [facility] [address] [place] [address] Care Team Providers Care Clinical Practice Consultant Name Role Phone GERA JANG Primary Care Provider CHERI GODINEZ Plant Operations Manager VIC SANITAGO Referring Provider MEENU CHAMBERS JR Referring Provider TANA ROSARIO Referring Provider [phone] Assessment Encounter Date Assessment Date Assessment LastModified [...] Time Details Appointments None record ed. Lab TSH, serum or plasma 2022 023 [facility], [address], [address], [place], [address], 3 21:35:16 BMP, serum or plasma 2022 023 [facility], [address], [address], [place], [address], 3 20:42:52 CBC w/ auto diff 2022 023 [facility], [address], [address], [place], [address], 3 20:05:56 TSH, serum or plasma 2018 019 [facility], [address], [address], [place], [address], 0 09:10:00 CBC w/ auto diff 2018 019 [email or web address] [facility], [address], [address], [place], [address], 0 09:10:00 vitami n D, 25-hyd summer, total, serum 2018 019 [facility], [address], [address], [place], [address], 9 15:55:34 CMP, serum or plasma 2018 019 [facility], [address], [address], [place], [address], 9 16:55:55 lipid panel, serum 2018 019 [facility], [address], [address], [place], [address], 9 15:37:54 Referral nutrit ionist /dieti nafisa referr al 2018 019 [email or web address] Not available 9 13:20:41 Procedures None record ed. Surgeries None record ed. Imaging electr ocardi ogram 2022 023 [email or web address] In-Office Order, Internal Use Only DO Not Attach Compendium DO Not Attach Compendium, Do Not Delete/merge, [id number] 3 15:35:06 Medication Orders loraze mary ellen 1 mg tablet 2022 023 [facility]0838, [address] [place], [address], 3 07:36:07 doxycy garcia hyclat e 100 mg capsul e 2019 020 [email or web address] [facility] #0838, [address] [place] [address], [address], 3 14:37:17 ProAir HFA 90 mcg/ac tuatio n aeroso l inhale r 2019 020 [facility]0838, [address] [place] [address], [address], 3 15:21:09 escita lopram 20 mg tablet 2019 020 [facility] #0838, [address] [place] [address], [address], 0 12:57:09 loraze mary ellen 0.5 mg tablet 2018 019 [facility] [address] [place] [address], [address], 3 15:14:58 escita lopram 20 mg tablet 2018 019 [facility] #0838, [address] [place] [address], [address], 0 12:57:09 sertra line 100 mg tablet 2018 019 [facility] #0838, [address] [place], [address], 0 10:17:03 sertra line 50 mg tablet 2018 019 [facility] #0838, [address] [place], [address], 9 11:25:50 loraze mary ellen 0.5 mg tablet 2018 019 acennerazzo [facility]0838, [address] [place], [address], 3 15:14:58 Patient TargetsNo targets recorded. Patient Instructions Encounter Date Encounter Id Patient Instructions Last Modified By Organization Details Last Modified Time 04/11/2019 [id number] anxiety disorder: care instructions [email or web address] Not available 04/11/2019 11:41:16 starting a weight loss plan: care instructions [email or web address] Not available 04/11/2019 11:41:17 Nutrition Referral and Weight Management Follow-up Information [email or web address] Not available 04/11/2019 11:41:17 05/14/2019 [id number] anxiety disorder: care instructions [email or web address] Not available 05/14/2019 11:59:19 08/03/2022 [id number] anxiety disorder: care instructions [email or web address] Not available 08/03/2022 15:30:36 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 Refer ral for Body mass index 30+ - obesity Referring Physician: Gera Jang, Family Medicine, Encounter Date: 04/11/2019 Results Created Date Observation Date Name Description Value Unit Range Abnormal Flag Note LastModifiedBy Organization Detail LastModifiedTime 04/19/2004/19/2019 lipid panel , serum cholesterol, total 185 mg/dL (<200) Not Available [facility] [address] [place], [address], 04/19/2019 15:37:54 04/19/20 19 04/19/2019 lipid panel , serum triglyceride 78 mg/dL (<150) Not Available [facility] [address] [place], [address], 04/19/2019 15:37:54 04/19/20 19 04/19/2019 lipid panel , serum HDL chol 74 mg/dL (>39) Not Available [facility] [address] [place], [address], 04/19/2019 15:37:54 04/19/20 19 04/19/2019 lipid panel , serum LDL cholesterol, calculated 95 mg/dL (0-130 ) Not Available [facility] [address] [place] [place], [address], 04/19/2019 15:37:54 04/19/20 19 04/19/2019 lipid panel , serum non HDL cholesterol (calc) 111 mg/dL (<160) Not Available [facility] [address] [place], [address], 04/19/2019 15:37:54 04/19/20 19 04/19/2019 vitam in D, 25-hy droxy , total , serum 25OH vitamin D 20.7 NG/mL (20-50 ) Serum 25OHD : 20 to 50 ng/mL : suffi cient in vitam in D. Refer ence: [facility] Data Brief : No.59 July: Vitam in D Statu s: Unite d State s: 2000- 2005 Not Available [facility] [address] [place], [address], 04/19/2019 15:55:34 04/19/20 19 04/19/2019 CMP, serum or plasm a glucose 88 mg/dL (70-99 ) Not Available [facility] [address] [place], [address], 04/19/2019 16:55:55 04/19/20 19 04/19/2019 CMP, serum or plasm a BUN 12 mg/dL (6-20) Not Available [facility] [address] [place], [address], 04/19/2019 16:55:55 04/19/20 19 04/19/2019 CMP, serum or plasm a creatinine 1.0 mg/dL (0.5-1 .0) Not Available [facility] [address] [place], [address], 04/19/2019 16:55:55 04/19/20 19 04/19/2019 CMP, serum or plasm a sodium 142 mmol/ L (133-1 45) Not Available [facility] [address] [place], [address], 04/19/2019 16:55:55 04/19/20 19 04/19/2019 CMP, serum or plasm a potassium 4.8 mmol/ L (3.6-5 .2) Not Available [facility] [address] [place], [address], 04/19/2019 16:55:55 04/19/20 19 04/19/2019 CMP, serum or plasm a chloride 104 mmol/ L (98-10 7) Not Available [facility] [address] [place], [address], 04/19/2019 16:55:55 04/19/20 19 04/19/2019 CMP, serum or plasm a bicarbonate 26 mmol/ L (22-29 ) Not Available [facility] [address] [place], [address], 04/19/2019 16:55:55 04/19/20 19 04/19/2019 CMP, serum or plasm a anion gap 12 (4-17) Not Available [facility] [address] [place], [address], 04/19/2019 16:55:55 04/19/20 19 04/19/2019 CMP, serum or plasm a albumin 4.2 gm/dL (3.4-4 .8) Not Available [facility] [address] [place], [address], 04/19/2019 16:55:55 04/19/2004/19/2019 CMP, serum or plasm a calcium 9.0 mg/dL (8.6-1 0.5) Not Available [facility] [address] [place], [address], 04/19/2019 16:55:55 04/19/20 19 04/19/2019 CMP, serum or plasm a bilirubin,to joan 0.3 mg/dL (0-1.2 ) Not Available [facility] [address] [place], [address], 04/19/2019 16:55:55 04/19/20 19 04/19/2019 CMP, serum or plasm a total protein 7.1 gm/dL (6.2-8 .2) Not Available [facility] [address] [place] [place], [address], 04/19/2019 16:55:55 04/19/20 19 04/19/2019 CMP, serum or plasm a Ag ratio 1.4 Not Available [facility] [address] [place], [address], 04/19/2019 16:55:55 04/19/20 19 04/19/2019 CMP, serum or plasm a AST 14 U/L (0-32) Not Available [facility] [address] [place], [address], 04/19/2019 16:55:55 04/19/20 19 04/19/2019 CMP, serum or plasm a alk phos 75 U/L (35-10 4) Not Available [facility] [address] [place] [place], [address], 04/19/2019 16:55:55 04/19/20 19 04/19/2019 CMP, serum or plasm a ALT 10 U/L (0-33) Not Available [facility] [address] [place], [address], 04/19/2019 16:55:55 04/19/20 19 04/19/2019 CMP, serum [...] Available [facility] [address] [place], [address], 04/19/2019 16:55:55 04/19/20 19 04/19/2019 CMP, serum [...] Available [facility] [address] [place], [address], 04/19/2019 16:55:55 08/04/19 23 08/03/2022 COMPL ETE CBC WITH DIFF WBC 8.7 K/mm3 (4.0-1 1.0) Not Available [facility] [address] [place], [address], 08/03/2022 20:05:56 08/04/19 23 08/03/2022 COMPL ETE CBC WITH DIFF RBC 4.99 M/mm3 (4.20- 5.40) Not Available [facility] [address] [place], [address], 08/03/2022 20:05:56 08/04/19 23 08/03/2022 COMPL ETE CBC WITH DIFF HGB 14.1 gm/dL (11.7- 15.5) Not Available [facility] [address] [place], [address], 08/03/2022 20:05:56 08/04/19 23 08/03/2022 COMPL ETE CBC WITH DIFF HCT 43.7 % (35.7- 45.8) Not Available [facility] [address] [place], [address], 08/03/2022 20:05:56 08/04/19 23 08/03/2022 COMPL ETE CBC WITH DIFF MCV 87.6 fL (80.0- 100.0) Not Available [facility] [address] [place], [address], 08/03/2022 20:05:56 08/04/19 23 08/03/2022 COMPL ETE CBC WITH DIFF MCH 28.3 pg (27.0- 34.0) Not Available [facility] [address] [place], [address], 08/03/2022 20:05:56 08/04/19 23 08/03/2022 COMPL ETE CBC WITH DIFF MCHC 32.3 g/dL (33.0- 37.0) low Not Available [facility] [address] [place], [address], 08/03/2022 20:05:56 08/04/19 23 08/03/2022 COMPL ETE CBC WITH DIFF plt 510 K/mm3 (150-4 60) high Not Available [facility] [address] [place], [address], 08/03/2022 20:05:56 08/04/19 23 08/03/2022 COMPL ETE CBC WITH DIFF RDW-SD 39.9 fL (<47.0 ) Not Available [facility] [address] [place], [address], 08/03/2022 20:05:56 08/04/19 23 08/03/2022 COMPL ETE CBC WITH DIFF MPV 10.5 fL (9.4-1 2.4) Not Available [facility] [address] [place], [address], 08/03/2022 20:05:56 08/04/19 23 08/03/2022 COMPL ETE CBC WITH DIFF automated NRBC 0.0 #/100 _WBC' s Not Available [facility] [address] [place], [address], 08/03/2022 20:05:56 08/04/19 23 08/03/2022 COMPL ETE CBC WITH DIFF abs. NRBC 0.0 K/mm3 Not Available [facility] [address] [place], [address], 08/03/2022 20:05:56 08/04/19 23 08/03/2022 COMPL ETE CBC WITH DIFF neut # 6.4 K/mm3 (1.3-7 .0) Not Available [facility] [address] [place], [address], 08/03/2022 20:05:56 08/04/19 23 08/03/2022 COMPL ETE CBC WITH DIFF lymph # 1.3 K/mm3 (0.8-3 .1) Not Available [facility] [address] [place], [address], 08/03/2022 20:05:56 08/04/19 23 08/03/2022 COMPL ETE CBC WITH DIFF mono# 0.8 K/mm3 (0.4-0 .9) Not Available [facility] [address] [place], [address], 08/03/2022 20:05:56 08/04/19 23 08/03/2022 COMPL ETE CBC WITH DIFF eo # 0.1 K/mm3 (0.0-0 .4) Not Available [facility] [address] [place], [address], 08/03/2022 20:05:56 08/04/19 23 08/03/2022 COMPL ETE CBC WITH DIFF baso # 0.1 K/mm3 (0.0-0 .1) Not Available [facility] [address] [place], [address], 08/03/2022 20:05:56 08/04/19 23 08/03/2022 COMPL ETE CBC WITH DIFF abs. imm gran 0.0 K/mm3 Not Available [facility] [address] [place] [place], [address], 08/03/2022 20:05:56 08/04/19 23 08/03/2022 COMPL ETE CBC WITH DIFF neut 73.2 % (44-76 ) Not Available [facility] [address] [place], [address], 08/03/2022 20:05:56 08/04/19 23 08/03/2022 COMPL ETE CBC WITH DIFF lymph 15.5 % (15-43 ) Not Available [facility] [address] [place], [address], 08/03/2022 20:05:56 08/04/19 23 08/03/2022 COMPL ETE CBC WITH DIFF monocyte 9.7 % (4.5-1 0.5) Not Available [facility] [address] [place], [address], 08/03/2022 20:05:56 08/04/19 23 08/03/2022 COMPL ETE CBC WITH DIFF eo 0.8 % (0-6) Not Available [facility] [address] [place], [address], 08/03/2022 20:05:56 08/04/19 23 08/03/2022 COMPL ETE CBC WITH DIFF baso 0.6 % (0-2) Not Available [facility] [address] [place], [address], 08/03/2022 20:05:56 08/04/19 23 08/03/2022 COMPL ETE CBC WITH DIFF imm gran 0.2 % Not Available [facility] [address] [place], [address], 08/03/2022 20:05:56 08/04/19 23 08/03/2022 BASIC METAB OLIC PANEL glucose 109 mg/dL (70-99 ) high Not Available [facility] [address] [place], [address], 08/03/2022 20:42:52 08/04/19 23 08/03/2022 BASIC METAB OLIC PANEL BUN 14 mg/dL (6-20) Not Available [facility] [address] [place], [address], 08/03/2022 20:42:52 08/04/19 23 08/03/2022 BASIC METAB OLIC PANEL creatinine 0.8 mg/dL (0.5-1 .0) Not Available [facility] [address] [place], [address], 08/03/2022 20:42:52 08/04/19 23 08/03/2022 BASIC METAB OLIC PANEL sodium 139 mmol/ L (133-1 45) Not Available [facility] [address] [place], [address], 08/03/2022 20:42:52 08/04/19 23 08/03/2022 BASIC METAB OLIC PANEL potassium 4.9 mmol/ L (3.6-5 .2) Not Available [facility] [address] [place], [address], 08/03/2022 20:42:52 08/04/19 23 08/03/2022 BASIC METAB OLIC PANEL chloride 103 mmol/ L (98-10 7) Not Available [facility] [address] [place], [address], 08/03/2022 20:42:52 08/04/19 23 08/03/2022 BASIC METAB OLIC PANEL bicarbonate 22 mmol/ L (22-29 ) Not Available [facility] [address] [place], [address], 08/03/2022 20:42:52 08/04/19 23 08/03/2022 BASIC METAB OLIC PANEL anion gap 14 (4-17) Not Available [facility] [address] [place], [address], 08/03/2022 20:42:52 08/04/19 23 08/03/2022 BASIC METAB OLIC PANEL calcium 10.1 mg/dL (8.6-1 0.5) Not Available [facility] [address] [place] [place], [address], 08/03/2022 20:42:52 08/04/19 23 08/03/2022 BASIC METAB [...] Not Available [facility] [address] [place] [place], [address], 08/03/2022 20:42:52 08/04/19 23 08/03/2022 TSH TSH <0.01 uIU/m L (0.4-4 .2) low Not Available [facility] [address] [place], [address], 08/03/2022 21:35:16 08/04/19 23 08/04/2022 FREE T3 free T3 12.6 pg/mL (2.3-5 .0) high Not Available [facility] [address] [place], [address], 08/04/2022 09:16:00 08/04/19 23 08/04/2022 FREE T4 free T4 4.03 NG/dL (0.70- 1.80) high Not Available [facility] [address] [place], [address], 08/04/2022 09:16:02 08/04/19 23 08/04/2022 TOTAL T3 total T3 358.0 NG/dL (80-18 0) high Not Available [facility] [address] [place], [address], 08/04/2022 09:16:02 04/11/20 19 02/21/2019 MAMMO , scree kinga, digit al, bilat eral No observ ation record ed. [facility] [address], [place], [address], 04/11/2019 12:32:02 08/04/19 23 08/03/2022 elect rocar diogr am No observ ation record ed. [email or web address] In-Office Order Internal Use Only DO Not Attach Compendium DO Not Attach Compendium, Do Not Delete/merge, [id number] 08/03/2022 15:23:46 08/04/19 23 elect rocar diogr am No observ ation record ed. [facility] In-Office Order Internal Use Only DO Not Attach Compendium DO Not Attach Compendium, Do Not Delete/merge, [id number] 08/03/2022 17:21:31 Result Notes None recorded. Problems Name Problem SNOMED Code Status Onset Date Resolution Date Notes Provider Name and Address Organization Details Recorded Time Acute bronchit is 88611569 Completed 201101/03/2014 RECORDED 01/28/20 12 3:24PM BY JAVIER JI ON/ADDEN DUM Not Available [facility] 4 12:31:46 Acute pharyngi tis 627284391 Completed 201101/03/2014 RECORDED 01/28/20 12 3:24PM BY FARRUKH JIATI ON/ADDEN DUM Not Available [facility] 4 12:31:46 Acute sinusiti s 88626014 Completed 201101/03/2014 IMPRESSI ON: FAILED TREATMEN T WITH BIAXIN.; RECORDED 01/28/20 12 3:24PM BY JAVIER JI ON/ADDEN DUM Not Available [facility] 4 12:31:46 Cough 56710157 Completed 201101/03/2014 RECORDED 01/28/20 12 3:24PM BY JAVIER JI ON/ADDEN DUM Not Available [facility] 4 12:31:46 Degenera tion of interver tebral disc 96751684 Completed 201101/03/2014 RECORDED 01/28/20 12 3:24PM BY KITTY PALMER I, ANNOTATI ON/ADDEN DUM Not Available [facility] 4 12:31:46 Dizzines s and giddines s 869780848 Completed 201101/03/2014 RECORDED 01/28/20 12 3:24PM BY KITTY PALMER I, ANNOTATI ON/ADDEN DUM Not Available [facility] 4 12:31:47 Adult health examinat ion Completed 201101/03/2014 RECORDED 05/02/20 12 10:01AM BY OPAL HAMMOND, FARRUKHATI ON/ADDEN DUM Not Available [facility] 4 12:31:47 Administ ration of bacteria l and viral vaccine Completed 200701/03/2014 RECORDED 04/12/20 08 1:30PM BY PETER CHAPMAN, OFFICE VISIT Not Available [facility] 4 12:31:47 Otalgia 30921872 Completed 201101/03/2014 RECORDED 01/28/20 12 3:24PM BY FARRUKH JIATI ON/ADDEN DUM Not Available [facility] 4 12:31:47 Influenz a vaccine needed 31342891871 06 Completed 201101/03/2014 RECORDED 02/02/20 12 2:58PM BY KITTY PALMER I, OFFICE VISIT Not Available [facility] 4 12:31:47 Idiopath ic peripher al neuropat hy 70221910 Completed 200801/03/2014 RECORDED 03/15/20 09 10:19AM BY SINTIA HICKS MD, ANNOTATI ON/ADDEN DUM Not Available [facility] 4 12:31:47 Acute bronchit is 33780251 Completed 201101/04/2014 RECORDED 01/28/20 12 3:24PM BY KITTY PALMER I ANNOTATI ON/ADDEN DUM Not Available [facility] 4 03:40:28 Acute pharyngi tis 848235500 Completed 201101/04/2014 RECORDED 01/28/20 12 3:24PM BY KITTY SCHULTZK I, ANNOTATI ON/ADDEN DUM Not Available [facility] 4 03:40:28 Acute sinusiti s 98147097 Completed 201101/04/2014 IMPRESSI ON: FAILED TREATMEN T WITH BIAXIN.; RECORDED 01/28/20 12 3:24PM BY KITTY PALMER I ANNOTATI ON/ADDEN DUM Not Available [facility] 4 03:40:28 Cough 45800640 Completed 201101/04/2014 RECORDED 01/28/20 12 3:24PM BY FARRUKH JIATI ON/ADDEN DUM Not Available [facility] 4 03:40:28 Degenera tion of interver tebral disc 81465530 Completed 201101/04/2014 RECORDED 01/28/20 12 3:24PM BY KITTY PALMER I ANNOTATI ON/ADDEN DUM Not Available [facility] 4 03:40:28 Dizzines s and giddines s 527452308 Completed 201101/04/2014 RECORDED 01/28/20 12 3:24PM BY KITTY PALMER I ANNOTATI ON/ADDEN DUM Not Available [facility] 4 03:40:28 Adult health examinat ion Completed 201101/04/2014 RECORDED 05/02/20 12 10:01AM BY FARRUKH MCNEILLATI ON/ADDEN DUM Not Available [facility] 4 03:40:28 Administ ration of bacteria l and viral vaccine Completed 200701/04/2014 RECORDED 04/12/20 08 1:30PM BY PETER CHAPMAN, OFFICE VISIT Not Available [facility] 4 03:40:28 Otalgia 80307580 Completed 201101/04/2014 RECORDED 01/28/20 12 3:24PM BY KITTY PALMER I ANNOTATI ON/ADDEN DUM Not Available [facility] 4 03:40:28 Influenz a vaccine needed 52728764372 06 Completed 201101/04/2014 RECORDED 02/02/20 12 2:58PM BY KITTY PALMER I, OFFICE VISIT Not Available [facility] 4 03:40:28 Idiopath ic peripher al neuropat hy 25467995 Completed 200801/04/2014 RECORDED 03/15/20 09 10:19AM BY SINTIA HICKS MD, JAVIER ON/ADDEN DUM Not Available [facility] 4 03:40:28 Low back pain 088654437 Active Gera Jang MD [address] [facility] [address], [place], [address] , [facility] 5 12:14:46 Vitamin D deficien cy 74131203 Active 2017 Gera Jang MD [address] [facility] [address], [place], [address] , [facility] 8 19:36:58 Hyperthy roidism 13481590 Active 2022 Gera Jang MD [address] [address], [place], [address] , [facility] 3 12:44:41 Graves' disease 193538799 Active 2022 Seen by tiny in [place]. Gera Jang MD [address] [facility], [place], [address] , [facility] 3 09:25:21 Acute bronchit is 43613832 Completed 201112/11/2013 RECORDED 01/28/20 12 3:24PM BY JAVIER JI ON/ADDEN DUM Not Available [facility] 4 14:09:51 Acute pharyngi tis 472125794 Completed 201112/11/2013 RECORDED 01/28/20 12 3:24PM BY JAVIER JI ON/ADDEN DUM Not Available [facility] 4 14:09:51 Acute sinusiti s 28303242 Completed 201112/11/2013 IMPRESSI ON: FAILED TREATMEN T WITH BIAXIN.; RECORDED 01/28/20 12 3:24PM BY KITTY PALMER I ANNOTATI ON/ADDEN DUM Not Available [facility] 4 14:09:51 Anxiety state 828042055 Active 2012 No longer on meds and no longer an issue Gera Jang MD [address], [place], [address] , [facility] 6 11:21:32 Patient status finding 515517236 Completed 201202/17/2016 RECORDED 06/06/19 13 9:57AM BY KITTY PALMER I, OFFICE VISIT Gera Jang MD [address], [place], [address] , [facility] 6 11:20:59 Chest pain 56006033 Completed 201202/22/2020 Delroy kaur, [place] null, [facility] 0 12:57:33 Cough 63749071 Completed 201112/11/2013 RECORDED 01/28/20 12 3:24PM BY FARRUKH JIATI ON/ADDEN DUM Not Available [facility] 4 14:09:51 Degenera tion of interver tebral disc 59431272 Completed 201112/11/2013 RECORDED 01/28/20 12 3:24PM BY KITTY PALMRE I ANNOTATI ON/ADDEN DUM Not Available [facility] 4 14:09:51 Dizzines s and giddines s 425678761 Completed 201112/11/2013 RECORDED 01/28/20 12 3:24PM BY KITTY PALMER I ANNOTATI ON/ADDEN DUM Not Available [facility] 4 14:09:51 Adult health examinat ion Completed 201112/11/2013 RECORDED 05/02/20 12 10:01AM BY FARRUKH MCNEILLATI ON/ADDEN DUM Not Available [facility] 4 14:09:51 Glaucoma 43870591 Active 2012 Had surgery 2011; not on drops Gera Jang MD [address], [place], [address] , [facility] 6 11:22:24 Administ ration of bacteria l and viral vaccine Completed 200712/11/2013 RECORDED 04/12/20 08 1:30PM BY PETER CHAPMAN, OFFICE VISIT Not Available [facility] 4 14:09:52 Otalgia 50855864 Completed 201112/11/2013 RECORDED 01/28/20 12 3:24PM BY KITTY PALMER I, FARRUKHATI ON/ADDEN DUM Not Available [facility] 4 14:09:52 Overweig ht 122499789 Active 2012 PNEG [place], [facility] 0 12:57:39 Palpitat ions 37811094 Active 2012 [place], [facility] 0 12:57:37 Influenz a vaccine needed 02420777922 06 Completed 201112/11/2013 RECORDED 02/02/20 12 2:58PM BY KITTY PALMER I, OFFICE VISIT Not Available [facility] 4 14:09:52 Idiopath ic peripher al neuropat hy 77930244 Completed 200812/11/2013 RECORDED 03/15/20 09 10:19AM BY SINTIA HICKS MD, ANNOTATI ON/ADDEN DUM Not Available [facility] 4 14:09:52 Problem Notes None recorded. Procedures Surgical History Date Name Laterality Status Provider Name and Address Organization Details Recorded Time 06/14/19 19 Date of [facility] 15:42:41 06/14/19 19 Colonoscopy completed Cintia [facility] 06/14/2018 15:42:32 Imaging Results Imaging Date Name Status LastModified by Organization Details LastModified Time 02/21/2019 MAMMO, screening, digital, bilateral completed donovan Garcia In [facility] [address], [place], [address], 04/11/2019 12:32:02 08/03/2022 electrocardiogram completed [email or web address] In-Offi ce Order Internal Use Only DO Not Attach Compendium DO Not Attach Compendium, Do Not Delete/merge, [id number] 08/03/2022 15:23:46 08/03/2022 electrocardiogram completed [email or web address] In-Off ice Order Internal Use Only DO Not Attach Compendium DO Not Attach Compendium, Do Not Delete/merge, [id number] 08/03/2022 17:21:31 Procedure Notes None recorded. Medical Equipment None Reported. Allergies Allergen ID Allergen Name Allergen Category Reaction Reaction Severity Criticality Documentation Date Start Date Code Code System Note Provider Name and Address Organization Details Recorded Time 1660 Product containin g penicilli n (product) medicatio n Not available Not available Not available 12/11/20132012 38955 8001 SNOMED Delroy Joanne saez [place] null, [facility] 0 12:56:48 03419 sertralin e medicatio n palpitati ons moderate Not available 05/14/2019 84402 RxNorm [facility] Gera rodríguez MD [address], [place], [address], [facility] 9 12:25:02 Medications Name Sig Start Date [...] Not Available Not Available Not Available escitalop sheriwn 20 mg tablet Take 1 tablet every [...] Updated DateTime 9 170.18 cm 37.9 kg/m2 808770. 35 g 72 /min 98 % 98 % 98.4 [degF] 116 mm[Hg] 62 mm[Hg] Kitty Lindquist [facility] 9 11:02:18 Date Recorded Body height Body mass index (BMI) Body weight Heart rate Oxygen saturation Oxygen saturation in Arterial blood by Pulse oximetry Body temperature Systolic blood pressure Diastolic blood pressure Provider Name and Address Organization Details Last Updated DateTime 9 170.18 cm 38.7 kg/m2 652750. 32 g 75 /min 98 % 98 % 98.6 [degF] 114 mm[Hg] 72 mm[Hg] Kitty Lindquist [facility] 9 11:25:18 Date Recorded Body height Body mass index (BMI) Body weight Heart rate Oxygen saturation Oxygen saturation in Arterial blood by Pulse oximetry Body temperature Systolic blood pressure Diastolic blood pressure Provider Name and Address Organization Details Last Updated DateTime 0 170.18 cm 39.5 kg/m2 201142. 28 g 60 /min 98 % 98 % 98.3 [degF] 118 mm[Hg] 62 mm[Hg] Kitty Lindquist [facility] 0 10:17:58 Date Recorded Body height Provider Name an d Address Organization Details Last Updated DateTime 02/22/2020 170.18 cm Delroy Young [place] [facility] 02/22/2020 12:56:37 Date Recorded Body height Body mass index (BMI) Body weight Heart rate Oxygen saturation Oxygen saturation in Arterial blood by Pulse oximetry Body temperature Systolic blood pressure Diastolic blood pressure Provider Name and Address Organization Details Last Updated DateTime 3 170.18 cm 41.3 kg/m2 183067. 59 g 119 /min 98 % 98 % 98.7 [degF] 130 mm[Hg] 83 mm[Hg] Geovanna Jefferson [place] [facility] 3 14:39:52 Social History Question Answer Notes LastModified by Organizat ion Details LastModified Time Tobacco Smoking Status Never Smoker Not Available [facility] 04/01/2020 03:36:36 Do You Have An Advance Directive? Yes [id number] Information not available 04/01/2020 What Is Your Level Of Alcohol Consumption? Occasional [id number] Information not available 04/01/2020 Is Blood Transfusion Acceptable In An Emergency? Yes [id number] Information not available 04/01/2020 What Is Your Level Of Caffeine Consumption? Occasional [id number] Information not available 04/01/2020 How Much Tobacco Do You Chew? None [id number] Information not available 04/01/2020 Are You Currently Employed? Yes [id number] Information not available 04/01/2020 What Type Of Diet Are You Following? REGULAR [id number] Information not available 04/01/2020 Which Illicit Or Recreational Drugs Have You Used? None [id number] Information not available 04/01/2020 Do You Or Have You Ever Used E-cigarettes Or Vape? Never Used Electronic Cigarettes [id number] Information not available 04/01/2020 What Is Your Occupation? [employer] Employee [employer] [id number] Information not available 04/01/2020 Live Alone Or With Others? With Others (Rocco) And Two Children lyudmila Information not available 11/27/2014 Do You Take Precautions To Prevent Distracted Driving? Yes [employer] Information not available 02/17/2016 How Often Do You Need To Have Someone Help You When You Read Instructions, Pamphlets, Or Other Written Material From Your Doctor Or Pharmacy? Never [address] [employer] Information not available 02/17/2016 Have You Served In The ? No [employer] Information not available 02/17/2016 Have You Or [...] Of Your Most Recent Tobacco Screening? 02/22/2020 [id number] Information not available 04/01/2020 How Many Children Do You Have? 2 Son Born 2003 And Daughter Born 2005 [id number] Information not available 04/01/2020 Do You Use Protection During Sex? No [id number] Information not available 04/01/2020 Seat Belts Used Routinely Yes [employer] Information not available 02/17/2016 Are You Sexually Active? Yes [id number] Information not available 04/01/2020 Smoke Alarm In Home Yes [employer] Information not available 02/17/2016 At What Age Did You Start Smoking Tobacco? 1 [id number] Information not available 04/01/2020 Are You Passively Exposed To Smoke? No [employer] Information not available 02/17/2016 Do You Or Have You Ever Used Smokeless Tobacco? Never Used Smokeless Tobacco [id number] Information not available 04/01/2020 How Much Tobacco Do You Smoke? No [id number] Information not available 04/01/2020 Do You Use Sunscreen Routinely? Yes [id number] Information not available 04/01/2020 How Many Years Have You Smoked Tobacco? 0 [id number] Information not available 04/01/2020 Sex: Unknown Functional Status Question Answer Note LastModified by Organizat ion Details LastModified Time Are you able to care for yourself? Yes [id number] Information not available 04/01/2020 What is your exercise level? Occasional [id number] Information not available 04/01/2020 Mental Status None [...] valent, preservative free, pediatric [facility] 14:32:24 Influenza, MDCK, quadrivalent, PF 2 [facility] 14:32:24 COVID-19, mRNA, LNP-S, PF, 30 mcg/0.3 mL dose 1 [facility] 14:32:24 COVID-19, mRNA, LNP-S, PF, 30 mcg/0.3 mL dose 1 [facility] 14:32:24 COVID-19, mRNA, LNP-S, PF, 30 mcg/0.3 mL dose 1 [facility] 14:32:24 COVID-19, mRNA, LNP-S, bivalent, PF, 30 mcg/0.3 mL dose 2 [facility] 14:32:24 Influenza, split virus, quadrivalent, PF 1 [facility] 14:32:25 Tdap 8 completed Not Available [facility] 12/11/2013 13:29:34 Influenza, split virus, quadrivalent, PF 6 completed Not Available [facility] 06/16/2019 02:22:04 Influenza, split virus, quadrivalent, PF 8 completed Not Available [facility] 06/16/2019 02:22:16 Td (adult), 2 Lf tetanus toxoid, preservative free, adsorbed 8 completed Not Available [facility] 06/16/2019 02:21:30 Influenza, split virus, quadrivalent, PF 9 completed Not Available [facility] 06/16/2019 02:22:10 Past Encounters Encounter ID Performer Location Encounter Start Date Encounter Closed Date Diagnosis/Indication Diagnosis SNOMED-CT Code Diagnosis ICD10 Code Diagnosis Note [id number] [facility] [address] [facility],[address] [place] [address] 11/17/2006 00:00:00 [id number] [facility] [address] [facility],[address] [place] [address] 12/07/2006 00:00:00 [id number] [facility] [facility] [address] [facility],[address] [place] [address] 04/12/2008 00:00:00 [id number] [facility] [address] [facility],[address] [place] [address] 03/12/2009 00:00:00 [id number] [facility] [address] [facility],[address] [place] [address] 03/15/2009 00:00:00 [id number] [facility] [address] [facility],[address] [place] [address] 04/29/2009 00:00:00 [id number] [facility] [address] [facility],[address] [place] [address] 09/29/2009 00:00:00 [id number] [facility] [address] [facility],[address] [place] [address] 10/29/2010 00:00:00 [id number] [facility] [address] [facility],[address] [place] [address] 04/06/2011 00:00:00 [id number] [facility] [address] [facility],[address] [place] [address] 06/28/2011 00:00:00 [id number] [facility] [facility] [address] [facility],[address] [place] [address] 07/12/2011 00:00:00 [id number] [facility] [facility] [address] [facility],[address] [place], [place] [address] 02/02/2012 00:00:00 [id number] [facility] [facility] [address] [facility],[address] [place], [place] [address] 05/02/2012 00:00:00 [id number] [place] [address],[address] [place], [place] [address] 06/06/2012 00:00:00 [id number] Kitty Lindquist Main Office [address] [facility] [address] [place] [address] 11/27/2014 10:40:00 11/27/2014 11:33:20 Low back pain 574805715 appears to be muscular. She will call next week if not improving. [id number] Gera Jang MD Main Office [address] [address] [place] [address] 02/17/2016 10:34:54 02/17/2016 11:41:46 Adult health examination 586661613 Z00.00 Needs infl uenza immunization 804581292 Z23 Screening for malignant neoplasm of colon 379098058 Z12.11 Her father had colon cancer in his late 50's. [id number] Gera Jang MD Main Office [address] [address] [place] [address] 07/04/2017 14:31:16 07/04/2017 15:29:11 Low back pain 211783668 M54.5 appears to be muscular. She will call next week if not improving. [id number] Jodee cantu Main Office [address] [address] [place] [address] 03/22/2018 15:04:48 03/22/2018 16:04:36 Needs influenza immunization 242360460 Z23 Dysuria 77284133 R30.0 Abdominal pain 00619737 R10.9 Unclear etiology L. mid back and mid abdomina; discomfort . Pt. reassured at this point examinatio n and urine test are completely normal./ Will order labs and xrays to investigat e further. Acute thor acic back pain 752254805 M54.6 ? pleurisy. L./ side. [id number] Gera Jang MD Main Office [address] [place] [address] 04/07/2018 10:16:55 04/07/2018 11:06:15 Adult health examination 040828893 Z00.00 We will update her immunizati ons. She is UTD with [employer] care and mammogram. I encouraged her to make an appointmen t for a colonoscop y given her strong family hx. Requires a tetanus booster 733866695 Z23 Screening for malignant neoplasm of colon 755795233 Z12.11 Her father had colon cancer in his late 50's. Flank pain 665726683 R10 .9 [id number] Gera Jang MD Main Office [address] [place] [address] 03/05/2019 15:13:02 03/05/2019 16:22:28 Benign paroxysmal positional vertigo 167515120 H81.10 Needs infl uenza immunization 459604827 Z23 Anxiety 63162578 F41.9 [id number] Gera Jang MD Main Office [address] [place] [place] [address] 04/11/2019 10:43:44 04/11/2019 11:42:04 Adult health examination 124725924 Z00.00 She is UTD with immunizati ons, colonoscop y, [employer]ELOP[employer] care and mammogram. Anxiety state 117894432 F41.1 Will start a daily med. Vitamin D deficiency 347 89688 E55.9 Body mass index 30+ - obesity 196613976 E66.01 Z68.35 [id number] Gera Jang MD Main Office [address] [place] [address] 05/14/2019 11:13:50 05/14/2019 12:06:01 Anxiety state 330294043 F41.1 Will stop sertraline because of muscle twitching and start lexapro. If not helpful or develops SE's we will refer her to Dr Matthew for a med consult. [id number] Gera Jang MD Main Office [address] [facility] [address] [place] [address] 06/26/2019 09:59:40 06/26/2019 10:58:18 Anxiety state 374265472 F41.1 Doing much better on lexapro and anxiety is no longer a problem. Could not tolerate zoloft because of muscle twitching. [id number] Glenda Copelandzachary [facility] [address] [place] [address] 02/22/2020 12:51:33 02/22/2020 14:23:09 Asthmatic bronchitis 537278538 J45.909 Rest, hydration, start antibiotic and inhaler. If not improving pt will call back and consider adding oral steroid burst or taper. [id number] Gera Jang MD Main Office [address] [facility] [address] [place] [address] 08/03/2022 14:09:21 08/03/2022 15:35:05 Tachycardia 6559188 R00.0 Sinus tachycardi a most likely secondary to anxiety. Possible relation to previous viral infection. Will treat her anxiety. No meds specifical ly for her heart rate just yet. Generalize d anxiety disorder 42035726 F41.1 This has been an intermitte nt [...] Guarantor Name 04/11/2019 1 [place] [id number] Rocco Whitmore [id number] Rocco Whitmore 05/14/2019 1 [place] [id number] Rocco Whitmore [id number] Rocco Whitmore 06/26/2019 1 [place] [id number] Rocco Whitmore [id number] Rocco Whitmore 02/22/2020 1 [place] [id number] Rocco Whitmore [id number] Rocco Whitmore 08/03/2022 1 [employer]MR (PPO) [id number] Suzy Whitmore [id number] Rocco Whitmore Notes Date Note Type Note Provider Name and Address Organization Details Recorded Time 04/11/2019 text/html Generic HPI TemplateReported bypatient.Notes:She takes lorazepam prn anxiety but which helps but she feels that her anxiety is getting worse and would like to start a daily med. Gera Jang MD [address], [address], [facility] 04/11/2019 12:32:54 05/14/2019 text/html She has seen [...] 90% with a lorazepam. Gera Jang MD [address], [address], [facility] 05/14/2019 12:47:30 06/26/2019 text/html Anxiety/Depressi onRepo rted [...] after stopping the zoloft Gera Jang MD [address], [address], [facility] 06/26/2019 11:01:08 02/22/2020 text/html TH visit for cou gh and wheezing with some slight SOB. She has had a cold for 2 weeks and the nasal congestion is better but tight cough has persisted. Very mild SOB when coughing, wheezing intermittently. No hx smoking, asthma or copd. No leg pain or swelling, no chest pain Glenda Minthuy curtis, [facility] 02/22/2020 13:37:58 08/03/2022 text/html She [...] celexa in the past. Gera Jang MD [address] [address], [place], [address], [facility] 08/04/2022 07:45:52 OBGyn Episode No OBEpisode recorded.
[2024-07-19 08:21] LABS: Thyroid Stimulating Hormone 0.41 uIU/mL (0.32-4.0)
[2024-07-20 18:13] LABS: Triiodothyronine T3 Free 3.1 pg/mL (2.3-4.2)
== END 2024-07-19 07:02 | disposition home or self-care (01) ==
LOC: HO.LAB 07:01
PROVIDERS: PCP Internal Medicine; Visit Provider Internal Medicine Endocrinology, Diabetes & Metabolism
DX: E05.90 Thyrotoxicosis, unspecified without thyrotoxic crisis or storm (principal)
CPT/HCPCS: 36415; 84443; 84481

== ENCOUNTER 2024-11-27 06:38 | Outpatient (REF) | payer OTHER, SELFPAY ==
--- OUTSIDE RECORDS SUMMARY | 2024-11-27 06:40 | XMS_ITS | Data Portability ---
Author Organization [facility], Main Office Address [address] [facility] [address] [place] [address] Care Team Providers Care Principal Process Engineer Name Role Phone GERA JANG Primary Care Provider CHERI GODINEZ Accounting Professional VIC SANTIAGO Referring Provider MEENU CHAMBERS JR Referring Provider [phone] TANA ROSARIO Referring Provider Assessment Encounter Date Assessment Date Assessment LastModified [...] or plasma 2022 023 [facility], [address], [address], [place], [address], 21:35:16 BMP, serum or plasma 2022 023 [facility], [address], [address], [place], [address], 3 20:42:52 CBC w/ auto diff 2022 023 [facility], [address], [address], [place], [address], 3 20:05:56 TSH, serum or plasma 2018 019 [email or web address] [facility], [address], [address], [place], [address], 0 09:10:00 CBC w/ auto diff 2018 019 [email or web address] [facility], [address], [address], [place], [address], 0 09:10:00 vitami n D, 25-hyd summer, total, serum 2018 019 [facility], [address], [address], [place], [address], 9 15:55:34 CMP, serum or plasma 2018 019 [facility], [address], [address], [place], [address], 9 16:55:55 lipid panel, serum 2018 019 [facility], [address], [address], [place], [address], 9 15:37:54 Referral nutrit ionist /dieti nafisa referr al 2018 019 [email or web address] Not available 9 13:20:41 Procedures None record ed. Surgeries None record ed. Imaging electr ocardi ogram 2022 023 [email or web address] In-Office Order, Internal Use Only DO Not Attach Compendium DO Not Attach Compendium, Do Not Delete/merge, 32008 3 15:35:06 Medication Orders loraze mary ellen 1 mg tablet 2022 023 [facility]0838, [address] [place], [address], 3 07:36:07 doxycy garcia hyclat e 100 mg capsul e 2019 020 [email or web address] [facility]/Pharmacy #0838, [address] [place], [address], 3 14:37:17 ProAir HFA 90 mcg/ac tuatio n aeroso l inhale r 2019 020 [email or web address], [address] [place], [address], 3 15:21:09 escita lopram 20 mg tablet 2019 020 [facility], [address] [place], [address], 0 12:57:09 loraze mary ellen 0.5 mg tablet 2018 019 [email or web address] #0838, [address] [place], [address], 3 15:14:58 escita lopram 20 mg tablet 2018 019 [facility]/Pharmacy #0838, [address] [place] [address], [address], 0 12:57:09 sertra line 100 mg tablet 2018 019 [facility]/Pharmacy #0838, [address] [place], [address], 0 10:17:03 sertra line 50 mg tablet 2018 019 [facility]/Pharmacy #0838, [address] [place], [address], 9 11:25:50 loraze mary ellen 0.5 mg tablet 2018 019 [facility]/Pharmacy #0838, [address] [place], [address], 3 15:14:58 Patient TargetsNo targets recorded. Patient Instructions Encounter Date Encounter Id Patient Instructions Last Modified By Organization Details Last Modified Time 04/11/2019 [id number] anxiety disorder: care instructions [email or web address] Not available 04/11/2019 11:41:16 starting a weight loss plan: care instructions acennerazzo Not available 04/11/2019 11:41:17 Nutrition Referral and Weight Management Follow-up Information [email or web address] Not available 04/11/2019 11:41:17 05/14/2019 [id number] anxiety disorder: care instructions acennerazzo Not available 05/14/2019 11:59:19 08/03/2022 [id number] anxiety disorder: care instructions [email or web address] Not available 08/03/2022 15:30:36 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 Refer ral for Body mass index 30+ - obesity Referring Physician: Gera Jang, Family Medicine, Encounter Date: 04/11/2019 Results Created Date Observation Date Name Description Value Unit Range Abnormal Flag Note LastModifiedBy Organization Detail LastModifiedTime 04/19/2004/19/2019 lipid panel , serum cholesterol, total 185 mg/dL (<200) Not Available [facility] (Centralized Electronic Ordering - All Locations) Patient Can Go To The Location Of Their Choice, [id number] 04/19/2019 15:37:54 04/19/2004/19/2019 lipid panel , serum triglyceride 78 mg/dL (<150) Not Available [facility] (Central[facility] Ordering - All Locations) Patient Can Go To The Location Of Their Choice, [id number] 04/19/2019 15:37:54 04/19/20 19 04/19/2019 lipid panel , serum HDL chol 74 mg/dL (>39) Not Available [facility] (Centralized Electronic Ordering - All Locations) Patient Can Go To The Location Of Their Choice, [id number] 04/19/2019 15:37:54 04/19/2004/19/2019 lipid panel , serum LDL cholesterol, calculated 95 mg/dL (0-130 ) Not Available [facility] (Centralized Electronic Ordering - All Locations) Patient Can Go To The Location Of Their Choice, 04/19/2019 15:37:54 04/19/2004/19/2019 lipid panel , serum non HDL cholesterol (calc) 111 mg/dL (<160) Not Available [facility] (Centralized Electronic Ordering - All Locations) Patient Can Go To The Location Of Their Choice, 04/19/2019 15:37:54 04/19/2004/19/2019 vitam in D, 25-hy droxy , total , serum 25OH vitamin D 20.7 NG/mL (20-50 ) Serum 25OHD : 20 to 50 ng/mL : suffi cient in vitam in D. Refer ence: [facility] Data Brief : No.59 July: Vitam in D Statu s: Unite [place] s: 2000- 2005 Not Available [facility] (Centralized Electronic Ordering - All Locations) Patient Can Go To The Location Of Their Choice, 04/19/2019 15:55:34 04/19/2004/19/2019 CMP, serum or plasm a glucose 88 mg/dL (70-99 ) Not Available [facility] (Centralized Electronic Ordering - All Locations) Patient Can Go To The Location Of Their Choice, 04/19/2019 16:55:55 04/19/2004/19/2019 CMP, serum or plasm a BUN 12 mg/dL (6-20) Not Available [facility] (Centralized Electronic Ordering - All Locations) Patient Can Go To The Location Of Their Choice, 04/19/2019 16:55:55 04/19/2004/19/2019 CMP, serum or plasm a creatinine 1.0 mg/dL (0.5-1 .0) Not Available [facility] (Centralized Electronic Ordering - All Locations) Patient Can Go To The Location Of Their Choice, 04/19/2019 16:55:55 04/19/2004/19/2019 CMP, serum or plasm a sodium 142 mmol/ L (133-1 45) Not Available [facility] (Centralized Electronic Ordering - All Locations) Patient Can Go To The Location Of Their Choice, 04/19/2019 16:55:55 04/19/2004/19/2019 CMP, serum or plasm a potassium 4.8 mmol/ L (3.6-5 .2) Not Available [facility] (Centralized Electronic Ordering - All Locations) Patient Can Go To The Location Of Their Choice, 04/19/2019 16:55:55 04/19/2004/19/2019 CMP, serum or plasm a chloride 104 mmol/ L (98-10 7) Not Available [facility] (Centralized Electronic Ordering - All Locations) Patient Can Go To The Location Of Their Choice, 04/19/2019 16:55:55 04/19/2004/19/2019 CMP, serum or plasm a bicarbonate 26 mmol/ L (22-29 ) Not Available [facility] (Centralized Electronic Ordering - All Locations) Patient Can Go To The Location Of Their Choice, 04/19/2019 16:55:55 04/19/2004/19/2019 CMP, serum or plasm a anion gap 12 (4-17) Not Available [facility] (Centralized Electronic Ordering - All Locations) Patient Can Go To The Location Of Their Choice, 04/19/2019 16:55:55 04/19/2004/19/2019 CMP, serum or plasm a albumin 4.2 gm/dL (3.4-4 .8) Not Available [facility] (Centralized Electronic Ordering - All Locations) Patient Can Go To The Location Of Their Choice, 04/19/2019 16:55:55 04/19/2004/19/2019 CMP, serum or plasm a calcium 9.0 mg/dL (8.6-1 0.5) Not Available [facility] (Centralized Electronic Ordering - All Locations) Patient Can Go To The Location Of Their Choice, 04/19/2019 16:55:55 04/19/2004/19/2019 CMP, serum or plasm a bilirubin,to joan 0.3 mg/dL (0-1.2 ) Not Available [facility] (Centralized Electronic Ordering - All Locations) Patient Can Go To The Location Of Their Choice, 04/19/2019 16:55:55 04/19/2004/19/2019 CMP, serum or plasm a total protein 7.1 gm/dL (6.2-8 .2) Not Available [facility] (Centralized Electronic Ordering - All Locations) Patient Can Go To The Location Of Their Choice, 04/19/2019 16:55:55 04/19/2004/19/2019 CMP, serum or plasm a Ag ratio 1.4 Not Available [facility] (Centralized Electronic Ordering - All Locations) Patient Can Go To The Location Of Their Choice, 04/19/2019 16:55:55 04/19/2004/19/2019 CMP, serum or plasm a AST 14 U/L (0-32) Not Available [facility] (Centralized Electronic Ordering - All Locations) Patient Can Go To The Location Of Their Choice, 04/19/2019 16:55:55 04/19/2004/19/2019 CMP, serum or plasm a alk phos 75 U/L (35-10 4) Not Available [facility] (Centralized Electronic Ordering - All Locations) Patient Can Go To The Location Of Their Choice, 04/19/2019 16:55:55 04/19/2004/19/2019 CMP, serum or plasm a ALT 10 U/L (0-33) Not Available [facility] (Centralized Electronic Ordering - All Locations) Patient Can Go To The Location Of Their Choice, 04/19/2019 16:55:55 04/19/2004/19/2019 CMP, serum or plasm a est GFR [...] [place]. Not Available [facility] (Centralized Electronic Ordering - All Locations) Patient Can Go To The Location Of Their Choice, 04/19/2019 16:55:55 04/19/2004/19/2019 CMP, serum or plasm a est GFR 76 mL/mi n/1.7 3_M2 Creat inine based estim ated fina maderar filtr ation rate (eGFR ) is calcu [...] [place] [employer]. Not Available [facility] (Centralized Electronic Ordering - All Locations) Patient Can Go To The Location Of Their Choice, [id number] 04/19/2019 16:55:55 08/04/1908/03/2022 COMPL ETE CBC WITH DIFF WBC 8.7 K/mm3 (4.0-1 1.0) Not Available [facility] (Centralized Electronic Ordering - All Locations) Patient Can Go To The Location Of Their Choice, 08/03/2022 20:05:56 08/04/1908/03/2022 COMPL ETE CBC WITH DIFF RBC 4.99 M/mm3 (4.20- 5.40) Not Available [facility] (Centralized Electronic Ordering - All Locations) Patient Can Go To The Location Of Their Choice, 08/03/2022 20:05:56 08/04/1908/03/2022 COMPL ETE CBC WITH DIFF HGB 14.1 gm/dL (11.7- 15.5) Not Available [facility] (Centralized Electronic Ordering - All Locations) Patient Can Go To The Location Of Their Choice, 08/03/2022 20:05:56 08/04/1908/03/2022 COMPL ETE CBC WITH DIFF HCT 43.7 % (35.7- 45.8) Not Available [facility] (Centralized Electronic Ordering - All Locations) Patient Can Go To The Location Of Their Choice, 08/03/2022 20:05:56 08/04/1908/03/2022 COMPL ETE CBC WITH DIFF MCV 87.6 fL (80.0- 100.0) Not Available [facility] (Centralized Electronic Ordering - All Locations) Patient Can Go To The Location Of Their Choice, 08/03/2022 20:05:56 08/04/1908/03/2022 COMPL ETE CBC WITH DIFF MCH 28.3 pg (27.0- 34.0) Not Available [facility] (Centralized Electronic Ordering - All Locations) Patient Can Go To The Location Of Their Choice, 08/03/2022 20:05:56 08/04/1908/03/2022 COMPL ETE CBC WITH DIFF MCHC 32.3 g/dL (33.0- 37.0) low Not Available [facility] (Centralized Electronic Ordering - All Locations) Patient Can Go To The Location Of Their Choice, 08/03/2022 20:05:56 08/04/1908/03/2022 COMPL ETE CBC WITH DIFF plt 510 K/mm3 (150-4 60) high Not Available [facility] (Centralized Electronic Ordering - All Locations) Patient Can Go To The Location Of Their Choice, 08/03/2022 20:05:56 08/04/1908/03/2022 COMPL ETE CBC WITH DIFF RDW-SD 39.9 fL (<47.0 ) Not Available [facility] (Centralized Electronic Ordering - All Locations) Patient Can Go To The Location Of Their Choice, 08/03/2022 20:05:56 08/04/1908/03/2022 COMPL ETE CBC WITH DIFF MPV 10.5 fL (9.4-1 2.4) Not Available [facility] (Centralized Electronic Ordering - All Locations) Patient Can Go To The Location Of Their Choice, 08/03/2022 20:05:56 08/04/1908/03/2022 COMPL ETE CBC WITH DIFF automated NRBC 0.0 #/100 _WBC' s Not Available [facility] (Centralized Electronic Ordering - All Locations) Patient Can Go To The Location Of Their Choice, 08/03/2022 20:05:56 08/04/1908/03/2022 COMPL ETE CBC WITH DIFF abs. NRBC 0.0 K/mm3 Not Available [facility] (Centralized Electronic Ordering - All Locations) Patient Can Go To The Location Of Their Choice, 08/03/2022 20:05:56 08/04/1908/0308/03/2022 COMPL ETE CBC WITH DIFF neut # 6.4 K/mm3 (1.3-7 .0) Not Available [facility] (Centralized Electronic Ordering - All Locations) Patient Can Go To The Location Of Their Choice, 08/03/2022 20:05:56 08/04/1908/03/2022 COMPL ETE CBC WITH DIFF lymph # 1.3 K/mm3 (0.8-3 .1) Not Available [facility] (Centralized Electronic Ordering - All Locations) Patient Can Go To The Location Of Their Choice, 08/03/2022 20:05:56 08/04/1908/03/2022 COMPL ETE CBC WITH DIFF mono# 0.8 K/mm3 (0.4-0 .9) Not Available [facility] (Centralized Electronic Ordering - All Locations) Patient Can Go To The Location Of Their Choice, 08/03/2022 20:05:56 08/04/1908/03/2022 COMPL ETE CBC WITH DIFF eo # 0.1 K/mm3 (0.0-0 .4) Not Available [facility] (Centralized Electronic Ordering - All Locations) Patient Can Go To The Location Of Their Choice, 08/03/2022 20:05:56 08/04/1908/03/2022 COMPL ETE CBC WITH DIFF baso # 0.1 K/mm3 (0.0-0 .1) Not Available [facility] (Centralized Electronic Ordering - All Locations) Patient Can Go To The Location Of Their Choice, 08/03/2022 20:05:56 08/04/1908/03/2022 COMPL ETE CBC WITH DIFF abs. imm gran 0.0 K/mm3 Not Available [facility] (Centralized [facility] Ordering - All Locations) Patient Can Go To The Location Of Their Choice, 08/03/2022 20:05:56 08/04/1908/03/2022 COMPL ETE CBC WITH DIFF neut 73.2 % (44-76 ) Not Available [facility] (Centralized Electronic Ordering - All Locations) Patient Can Go To The Location Of Their Choice, 08/03/2022 20:05:56 08/04/1908/03/2022 COMPL ETE CBC WITH DIFF lymph 15.5 % (15-43 ) Not Available [facility] (Centralized Electronic Ordering - All Locations) Patient Can Go To The Location Of Their Choice, 08/03/2022 20:05:56 08/04/1908/03/2022 COMPL ETE CBC WITH DIFF monocyte 9.7 % (4.5-1 0.5) Not Available [facility] (Centralized Electronic Ordering - All Locations) Patient Can Go To The Location Of Their Choice, 08/03/2022 20:05:56 08/04/1908/03/2022 COMPL ETE CBC WITH DIFF eo 0.8 % (0-6) Not Available [facility] (Centralized Electronic Ordering - All Locations) Patient Can Go To The Location Of Their Choice, 08/03/2022 20:05:56 08/04/1908/03/2022 COMPL ETE CBC WITH DIFF baso 0.6 % (0-2) Not Available [facility] (Centralized Electronic Ordering - All Locations) Patient Can Go To The Location Of Their Choice, 08/03/2022 20:05:56 08/04/1908/03/2022 COMPL ETE CBC WITH DIFF imm gran 0.2 % Not Available [facility] (Centralized Electronic Ordering - All Locations) Patient Can Go To The Location Of Their Choice, 08/03/2022 20:05:56 08/04/1908/03/2022 BASIC METAB OLIC PANEL glucose 109 mg/dL (70-99 ) high Not Available [facility] (Centralized Electronic Ordering - All Locations) Patient Can Go To The Location Of Their Choice, 08/03/2022 20:42:52 08/04/1908/03/2022 BASIC METAB OLIC PANEL BUN 14 mg/dL (6-20) Not Available [facility] (Centralized Electronic Ordering - All Locations) Patient Can Go To The Location Of Their Choice, 08/03/2022 20:42:52 08/04/1908/03/2022 BASIC METAB OLIC PANEL creatinine 0.8 mg/dL (0.5-1 .0) Not Available [facility] (Centralized Electronic Ordering - All Locations) Patient Can Go To The Location Of Their Choice, 08/03/2022 20:42:52 08/04/1908/03/2022 BASIC METAB OLIC PANEL sodium 139 mmol/ L (133-1 45) Not Available [facility] (Centralized Electronic Ordering - All Locations) Patient Can Go To The Location Of Their Choice, 08/03/2022 20:42:52 08/04/1908/03/2022 BASIC METAB OLIC PANEL potassium 4.9 mmol/ L (3.6-5 .2) Not Available [facility] (Centralized Electronic Ordering - All Locations) Patient Can Go To The Location Of Their Choice, 08/03/2022 20:42:52 08/04/1908/03/2022 BASIC METAB OLIC PANEL chloride 103 mmol/ L (98-10 7) Not Available [facility] (Centralized Electronic Ordering - All Locations) Patient Can Go To The Location Of Their Choice, 08/03/2022 20:42:52 08/04/1908/03/2022 BASIC METAB OLIC PANEL bicarbonate 22 mmol/ L (22-29 ) Not Available [facility] (Centralized Electronic Ordering - All Locations) Patient Can Go To The Location Of Their Choice, 08/03/2022 20:42:52 08/04/1908/03/2022 BASIC METAB OLIC PANEL anion gap 14 (4-17) Not Available [facility] (Centralized Electronic Ordering - All Locations) Patient Can Go To The Location Of Their Choice, 08/03/2022 20:42:52 08/04/1908/03/2022 BASIC METAB OLIC PANEL calcium 10.1 mg/dL (8.6-1 0.5) Not Available [facility] (Centralized Electronic Ordering - All Locations) Patient Can Go To The Location Of Their Choice, 08/03/2022 20:42:52 08/04/1908/03/2022 BASIC METAB OLIC PANEL estimated GFR creatinine 95 mL/mi n/1.7 3_M2 Creat inine based estim ated glome rular filtr ation (eGFR ) in adult s is calcu lated using the Natio nal Kidne y Found ation recom cyndie d 2020 CKD-E PI equat ion. Estim ates GFR from serum creat inine , age and sex. Not Available [facility] (Centralized Electronic Ordering - All Locations) Patient Can Go To The Location Of Their Choice, 08/03/2022 20:42:52 08/04/1908/03/2022 TSH TSH <0.01 uIU/m L (0.4-4 .2) low Not Available [facility] (Centralized Electronic Ordering - All Locations) Patient Can Go To The Location Of Their Choice, 08/03/2022 21:35:16 08/04/1908/04/2022 FREE T3 free T3 12.6 pg/mL (2.3-5 .0) high Not Available [facility] (Centralized Electronic Ordering - All Locations) Patient Can Go To The Location Of Their Choice, 08/04/2022 09:16:00 08/04/1908/04/2022 FREE T4 free T4 4.03 NG/dL (0.70- 1.80) high Not Available [facility] (Centralized Electronic Ordering - All Locations) Patient Can Go To The Location Of Their Choice, 08/04/2022 09:16:02 08/04/1908/04/2022 TOTAL T3 total T3 358.0 NG/dL (80-18 0) high Not Available [facility] (Centralized Electronic Ordering - All Locations) Patient Can Go To The Location Of Their Choice, 08/04/2022 09:16:02 04/11/20 19 02/21/2019 MAMMO , arnaldo donato, digit al, bilat eral No observ ation record ed. [facility] [address], [address], 04/11/2019 12:32:02 08/04/19 23 08/03/2022 elect manuel mitchell am No observ ation record ed. [email or web address] In-Office Order Internal Use Only DO Not Attach Compendium DO Not Attach Compendium, Do Not Delete/merge, 08/03/2022 15:23:46 08/04/19 rigoberto mitchell am No observ ation record ed. [facility] In-Office Order Internal Use Only DO Not Attach Compendium DO Not Attach Compendium, Do Not Delete/merge, 08/03/2022 17:21:31 Result Notes None recorded. Problems Name Problem SNOMED Code Status Onset Date Resolution Date Notes Provider Name and Address Organization Details Recorded Time Acute bronchit is 05443777 Completed 201101/03/2014 RECORDED 01/28/20 12 3:24PM BY JAVIER JI ON/ADDEN DUM Not Available [facility] 4 12:31:46 Acute pharyngi tis 290980683 Completed 201101/03/2014 RECORDED 01/28/20 12 3:24PM BY JAVIER JI ON/ADDEN DUM Not Available [facility] 4 12:31:46 Acute sinusiti s 28429693 Completed 201101/03/2014 IMPRESSI ON: FAILED TREATMEN T WITH BIAXIN.; RECORDED 01/28/20 12 3:24PM BY JAVIER JI ON/ADDEN DUM Not Available [facility] 4 12:31:46 Cough 85491594 Completed 201101/03/2014 RECORDED 01/28/20 12 3:24PM BY JAVIER JI ON/ADDEN DUM Not Available [facility] 4 12:31:46 Degenera tion of interver tebral disc 92007053 Completed 201101/03/2014 RECORDED 01/28/20 12 3:24PM BY JAVIER JI ON/ADDEN DUM Not Available [facility] 4 12:31:46 Dizzines s and giddines s 152078026 Completed 201101/03/2014 RECORDED 01/28/20 12 3:24PM BY JAVIER JI ON/ADDEN DUM Not Available [facility] 4 12:31:47 Adult health examinat ion Completed 201101/03/2014 RECORDED 05/02/20 12 10:01AM BY JAVIER MCNEILL ON/ADDEN DUM Not Available [facility] 4 12:31:47 Administ ration of bacteria l and viral vaccine Completed 200701/03/2014 RECORDED 04/12/20 08 1:30PM BY PETER CHAPMAN, OFFICE VISIT Not Available [facility] 4 12:31:47 Otalgia 15702220 Completed 201101/03/2014 RECORDED 01/28/20 12 3:24PM BY KITTY PALMER I ANNOTATI ON/ADDEN DUM Not Available [facility] 4 12:31:47 Influenz a vaccine needed 91085260849 06 Completed 201101/03/2014 RECORDED 02/02/20 12 2:58PM BY KITTY PALMER I, OFFICE VISIT Not Available [facility] 4 12:31:47 Idiopath ic peripher al neuropat hy 54665887 Completed 200801/03/2014 RECORDED 03/15/20 09 10:19AM BY SINTIA HICKS MD, ANNOTATI ON/ADDEN DUM Not Available [facility] 4 12:31:47 Acute bronchit is 90873884 Completed 201101/04/2014 RECORDED 01/28/20 12 3:24PM BY FARRUKH JIATI ON/ADDEN DUM [facility] Available [facility] 4 03:40:28 Acute pharyngi tis 086116670 Completed 201101/04/2014 RECORDED 01/28/20 12 3:24PM BY KITTY PALMER I ANNOTATI ON/ADDEN DUM Not Available [facility] 4 03:40:28 Acute sinusiti s 87275538 Completed 201101/04/2014 IMPRESSI ON: FAILED TREATMEN T WITH BIAXIN.; RECORDED 01/28/20 12 3:24PM BY FARRUKH JIATI ON/ADDEN DUM Not Available [facility] 4 03:40:28 Cough 20533839 Completed 201101/04/2014 RECORDED 01/28/20 12 3:24PM BY KITTY PALMER I ANNOTATI ON/ADDEN DUM Not Available [facility] 4 03:40:28 Degenera tion of interver tebral disc 10879024 Completed 201101/04/2014 RECORDED 01/28/20 12 3:24PM BY KITTY PALMER I, ANNOTATI ON/ADDEN DUM Not Available [facility] 4 03:40:28 Dizzines s and giddines s 992661827 Completed 201101/04/2014 RECORDED 01/28/20 12 3:24PM BY KITTY PALMER I, ANNOTATI ON/ADDEN DUM Not Available [facility] 4 03:40:28 Adult health examinat ion Completed 201101/04/2014 RECORDED 05/02/20 12 10:01AM BY OPAL HAMMOND, FARRUKHATI ON/ADDEN DUM Not Available [facility] 4 03:40:28 Administ ration of bacteria l and viral vaccine Completed 200701/04/2014 RECORDED 04/12/20 08 1:30PM BY PETER CHAPMAN, OFFICE VISIT Not Available [facility] 4 03:40:28 Otalgia 98833019 Completed 201101/04/2014 RECORDED 01/28/20 12 3:24PM BY KITTY PALMER I, ANNOTATI ON/ADDEN DUM Not Available [facility] 4 03:40:28 Influenz a vaccine needed 60074477439 06 Completed 201101/04/2014 RECORDED 02/02/20 12 2:58PM BY KITTY PALMER I, OFFICE VISIT Not Available [facility] 4 03:40:28 Idiopath ic peripher al neuropat hy 66874578 Completed 200801/04/2014 RECORDED 03/15/20 09 10:19AM BY SINTIA HICKS MD, ANNOTATI ON/ADDEN DUM Not Available [facility] 4 03:40:28 Low back pain 599652605 Active Gera Jang MD [address], [place], [address] , [facility] 5 12:14:46 Vitamin D deficien cy 65044505 Active 2017 Gera Jang MD [address], [place], [address] , [facility] 8 19:36:58 Hyperthy roidism 91933811 Active 2022 Gera Jang MD [address], [place], [address] , [facility] 3 12:44:41 Graves' disease 602233477 Active 2022 Seen by endo in [place]. Gera Jang MD [address], [place], [address] , [facility] 3 09:25:21 Acute bronchit is 91248130 Completed 201112/11/2013 RECORDED 01/28/20 12 3:24PM BY JAVIER JI ON/ADDEN DUM Not Available [facility] 4 14:09:51 Acute pharyngi tis 564119902 Completed 201112/11/2013 RECORDED 01/28/20 12 3:24PM BY KITTY PALMER I ANNOTATI ON/ADDEN DUM Not Available [facility] 4 14:09:51 Acute sinusiti s 13625357 Completed 201112/11/2013 IMPRESSI ON: FAILED TREATMEN T WITH BIAXIN.; RECORDED 01/28/20 12 3:24PM BY KITTY PALMER I ANNOTATI ON/ADDEN DUM Not Available [facility] 4 14:09:51 Anxiety state 411760064 Active 2012 No longer on meds and no longer an issue Gera Jang MD [address], [place], [address] , [facility] 6 11:21:32 Patient status finding 642968594 Completed 201202/17/2016 RECORDED 06/06/19 13 9:57AM BY KITTY PALMER I, OFFICE VISIT Gera Jang MD [address], [place], [address] , [facility] 6 11:20:59 Chest pain 46714843 Completed 201202/22/2020 P[place], [facility] 0 12:57:33 Cough [id number] Completed 201112/11/2013 RECORDED 01/28/20 12 3:24PM BY KITTY PALMER I ANNOTATI ON/ADDEN DUM Not Available [facility] 4 14:09:51 Degenera tion of interver tebral disc 39931492 Completed 201112/11/2013 RECORDED 01/28/20 12 3:24PM BY KITTY PALMER I ANNOTATI ON/ADDEN DUM Not Available [facility] 4 14:09:51 Dizzines s and giddines s [id number] Completed 201112/11/2013 RECORDED 01/28/20 12 3:24PM BY KITTY PALMER I ANNOTATI ON/ADDEN DUM Not Available [facility] 4 14:09:51 Adult health examinat ion Completed 201112/11/2013 RECORDED 05/02/20 12 10:01AM BY FARRUKH MCNEILLATI ON/ADDEN DUM Not Available [facility] 4 14:09:51 Glaucoma 26812171 Active 2012 Had surgery 2011; not on drops Gera Jang MD [address] [address], [facility] [place], [address] , [facility] 6 11:22:24 Administ ration of bacteria l and viral vaccine Completed 200712/11/2013 RECORDED 04/12/20 08 1:30PM BY PETER CHAPMAN, OFFICE VISIT Not Available [facility] 4 14:09:52 Otalgia 53910493 Completed 201112/11/2013 RECORDED 01/28/20 12 3:24PM BY KITTY PALMER I ANNOTATI ON/ADDEN DUM Not Available [facility] 4 14:09:52 Overweig ht 486750726 Active 2012 PENG Bella [facility] 0 12:57:39 Palpitat ions 44566422 Active 2012 Jovanna BaySalina abenaarethaPENG, [facility] 0 12:57:37 Influenz a vaccine needed [id number] 06 Completed 201112/11/2013 RECORDED 02/02/20 12 2:58PM BY KITTY PALMER I, OFFICE VISIT Not Available [facility] 4 14:09:52 Idiopath ic peripher al neuropat hy 23695962 Completed 200812/11/2013 RECORDED 03/15/20 09 10:19AM BY SINTIA HICKS MD, ANNOTATI ON/ADDEN DUM Not Available [facility] 4 14:09:52 Problem Notes None recorded. Procedures Surgical History Date Name Laterality Status Provider Name and Address Organization Details Recorded Time 06/14/19 19 Date of [facility] 15:42:41 06/14/19 19 Colonoscopy completed Cintia [facility] 06/14/2018 15:42:32 Imaging Results None recorded. Procedure Notes None recorded. Medical Equipment None Reported. Allergies Allergen ID Allergen Name Allergen Category Reaction Reaction Severity Criticality Documentation Date Start Date Code Code System Note Provider Name and Address Organization Details Recorded Time 1660 Product containin g penicilli n (product) medicatio n Not available Not available Not available 12/11/20132012 73743 8001 SNOMED Jovanna BayHayden saezPENG, [facility] 0 12:56:48 79819 sertralin e medicatio n palpitati ons moderate Not available 05/14/2019 74137 RxNorm [facility] maryuri rodríguez MD [address] [facility] [address], [facility] [address], [facility] 9 12:25:02 Medications Name Sig Start Date [...] 09/29 completed RECORDED 09/30/19 10 3:34PM BY JOVANNA CHAPMAN MA, OFFICE VISIT; Not Available Not [...] completed RECORDED 04/16/20 09 4:25PM BY SINTIA HCIKS MD, MEDICATI ON AUTO-ALENA CTIVATIO N; Not [...] Updated DateTime 0 170.18 cm 39.5 kg/m2 661216. 28 g 60 /min 98 % 98 % 98.3 [degF] 118 mm[Hg] 62 mm[Hg] Kitty Lindquist [facility] 0 10:17:58 Date Recorded Body height Body mass index (BMI) Body weight Heart rate Oxygen saturation Oxygen saturation in Arterial blood by Pulse oximetry Body temperature Systolic blood pressure Diastolic blood pressure Provider Name and Address Organization Details Last Updated DateTime 3 170.18 cm 41.3 kg/m2 063917. 59 g 119 /min 98 % 98 % 98.7 [degF] 130 mm[Hg] 83 mm[Hg] Geovanna Jefferson MA [facility] 3 14:39:52 Date Recorded Body height Provider Name an d Address Organization Details Last Updated DateTime 02/22/2020 170.18 cm Jovanna Young MA [facility] 02/22/2020 12:56:37 Date Recorded Body height Body mass index (BMI) Body weight Heart rate Oxygen saturation Oxygen saturation in Arterial blood by Pulse oximetry Body temperature Systolic blood pressure Diastolic blood pressure Provider Name and Address Organization Details Last Updated DateTime 9 170.18 cm 37.9 kg/m2 047085. 35 g 72 /min 98 % 98 % 98.4 [degF] 116 mm[Hg] 62 mm[Hg] Kitty Lindquist [facility] 9 11:02:18 Date Recorded Body height Body mass index (BMI) Body weight Heart rate Oxygen saturation Oxygen saturation in Arterial blood by Pulse oximetry Body temperature Systolic blood pressure Diastolic blood pressure Provider Name and Address Organization Details Last Updated DateTime 9 170.18 cm 38.7 kg/m2 847739. 32 g 75 /min 98 % 98 % 98.6 [degF] 114 mm[Hg] 72 mm[Hg] Kitty Lindquist [facility] 9 11:25:18 Social History Question Answer Notes LastModified by Organizat ion Details LastModified Time Tobacco Smoking Status Never Smoker Not Available [facility] 04/01/2020 03:36:36 Do You Have An Advance Directive? Yes [id number] Information not available 04/01/2020 Is Blood Transfusion Acceptable In An Emergency? Yes [id number] Information not available 04/01/2020 What Is Your Level Of Caffeine Consumption? Occasional [id number] Information not available 04/01/2020 How Much Tobacco Do You Chew? None [id number] Information not available 04/01/2020 What Type Of Diet Are You Following? REGULAR [id number] Information not available 04/01/2020 Which Illicit Or Recreational Drugs Have You Used? None [id number] Information not available 04/01/2020 Live Alone Or With Others? With Others (Rocco) And Two Children [email or web address] Information not available 11/27/2014 Do You Take Precautions To Prevent Distracted Driving? Yes [email or web address] Information not available 02/17/2016 How Often Do You Need To Have Someone Help You When You Read Instructions, Pamphlets, Or Other Written Material From Your Doctor Or Pharmacy? Never [email or web address] Information not available 02/17/2016 Have You Served In The ? No [email or web address] Information not available 02/17/2016 Have You Or [...] Of Your Most Recent Tobacco Screening? 02/22/2020 [id number] Information not available 04/01/2020 How Many Children Do You Have? 2 Son Born 2003 And Daughter Born 2005 [id number] Information not available 04/01/2020 Do You Use Protection During Sex? No [id number] Information not available 04/01/2020 Seat Belts Used Routinely Yes [email or web address] Information not available 02/17/2016 Are You Sexually Active? Yes [id number] Information not available 04/01/2020 Smoke Alarm In Home Yes [email or web address] Information not available 02/17/2016 At What Age Did You Start Smoking Tobacco? 1 [id number] Information not available 04/01/2020 Are You Passively Exposed To Smoke? No [email or web address] Information not available 02/17/2016 How Much Tobacco Do You Smoke? No [id number] Information not available 04/01/2020 Do You Use Sunscreen Routinely? Yes [id number] Information not available 04/01/2020 How Many Years Have You Smoked Tobacco? 0 [id number] Information not available 04/01/2020 Sex: Unknown Functional Status Question Answer Note LastModified by [email or web address] ion Details LastModified Time What is your level of alcohol consumption? Occasional [id number] Information not available 04/01/2020 Do you or have you ever used smokeless tobacco? Never used smokeless tobacco [id number] Information not available 04/01/2020 Are you currently employed? Yes [id number] Information not available 04/01/2020 Are you able to care for yourself? Yes [id number] Information not available 04/01/2020 What is your occupation? [employer] [id number] Information not available 04/01/2020 Do you or have you ever used e-cigarettes or vape? Never used electronic cigarettes [id number] Information not available 04/01/2020 What is your exercise level? Occasional [id number] Information not available 04/01/2020 Mental Status None [...] valent, preservative free, pediatric 0 [facility] 14:32:24 Influenza, MDCK, quadrivalent, PF 2 [facility] 14:32:24 COVID-19, mRNA, LNP-S, PF, 30 mcg/0.3 mL dose 1 [facility] 14:32:24 COVID-19, mRNA, LNP-S, PF, 30 mcg/0.3 mL dose 1 [facility] 14:32:24 COVID-19, mRNA, LNP-S, PF, 30 mcg/0.3 mL dose 1 [facility]22 14:32:24 COVID-19, mRNA, LNP-S, bivalent, PF, 30 mcg/0.3 mL dose 2 completed PENG Fowler, [facility] 08/03/2022 14:32:24 Influenza, split virus, quadrivalent, PF 1 completed PENG Fowler, [facility] 08/03/2022 14:32:25 Tdap 8 completed Not Available [facility] 12/11/2013 13:29:34 Influenza, split virus, quadrivalent, PF 6 completed Not Available [facility] 06/16/2019 02:22:04 Influenza, split virus, quadrivalent, PF 8 completed Not Available [facility] 06/16/2019 02:22:16 Td (adult), 2 Lf tetanus toxoid, preservative free, adsorbed 8 completed Not Available [facility] 06/16/2019 02:21:30 Influenza, split virus, quadrivalent, PF 9 completed Not Available [facility] 06/16/2019 02:22:10 Past Encounters Encounter ID Performer Location Encounter Start Date Encounter Closed Date Diagnosis/Indication Diagnosis SNOMED-CT Code Diagnosis ICD10 Code Diagnosis Note [id number] autoEComm erce [address] [facility] [place] [address] 11/17/2006 00:00:00 [id number] autoEComm erce [address] [facility] [place] [address] 12/07/2006 00:00:00 [id number] autoEComm erce [address] [facility] [place] [address] 04/12/2008 00:00:00 [id number] autoEComm erce [address] [facility] [place] [address] 03/12/2009 00:00:00 [id number] autoEComm erce [address] [facility] [place] [address] 03/15/2009 00:00:00 [id number] autoEComm erce [address] [facility] [place] [address] 04/29/2009 00:00:00 [id number] autoEComm erce [address] [facility] [place], [place] [address] 09/29/2009 00:00:00 [id number] autoEComm erce [address] [facility] [place], [place] [address] 10/29/2010 00:00:00 [id number] autoEComm erce [address] [facility] [place], [place] [address] 04/06/2011 00:00:00 [id number] autoEComm erce [address] [facility] [place], [place] [address] 06/28/2011 00:00:00 [id number] autoEComm erce [address] [facility] [place], [place] [address] 07/12/2011 00:00:00 [id number] autoEComm erce [address] [facility] [place], [place] [address] 02/02/2012 00:00:00 [id number] autoEComm erce [address] [facility] [place], [place] [address] 05/02/2012 00:00:00 [id number] autoEComm erce [address] [facility] [place], [place] [address] 06/06/2012 00:00:00 [id number] Gera Jang MD Main Office [address] [facility] [address] [place], [place] [address] 11/27/2014 10:40:00 11/27/2014 11:33:20 Low back pain 516680690 appears to be muscular. She will call next week if not improving. [id number] Gera Jang MD Main Office [address] [facility] [address] [place] [address] 02/17/2016 10:34:54 02/17/2016 11:41:46 Adult health examination 782931369 Z00.00 Needs infl uenza immunization 036308560 Z23 Screening for malignant neoplasm of colon 490476853 Z12.11 Her father had colon cancer in his late 50's. [id number] Gera Jang MD Main Office [address] [facility] [address] [place] [address] 07/04/2017 14:31:16 07/04/2017 15:29:11 Low back pain 986447255 M54.5 appears to be muscular. She will call next week if not improving. [id number] Carmella Escobar PA-C Main Office [address] [facility] [address] [place] [address] 03/22/2018 15:04:48 03/22/2018 16:04:36 Needs influenza immunization 917534592 Z23 Dysuria 55650112 R30.0 Abdominal pain 43333277 R10.9 Unclear etiology L. mid back and mid abdomina; discomfort . Pt. reassured at this point examinatio n and urine test are completely normal./ Will order labs and xrays to investigat e further. Acute thor acic back pain 319717369 M54.6 ? pleurisy. L./ side. [id number] Gera Jang MD Main Office [address] [address] [place] [address] 04/07/2018 10:16:55 04/07/2018 11:06:15 Adult health examination 028162908 Z00.00 We will update her immunizati ons. She is UTD with [facility] care and mammogram. I encouraged her to make an appointmen t for a colonoscop y given her strong family hx. Requires a tetanus booster 042936849 Z23 Screening for malignant neoplasm of colon 915636492 Z12.11 Her father had colon cancer in his late 50's. Flank pain 100814208 R10 .9 [id number] Gera Jang MD Main Office [address] [address] [place] [address] 03/05/2019 15:13:02 03/05/2019 16:22:28 Benign paroxysmal positional vertigo 908199998 H81.10 Needs infl uenza immunization 820321283 Z23 Anxiety 10072122 F41.9 [id number] Gera Jang MD Main Office [address] [address] [place] [address] 04/11/2019 10:43:44 04/11/2019 11:42:04 Adult health examination 560634188 Z00.00 She is UTD with immunizati ons, colonoscop y, [facility] care and mammogram. Anxiety state F41.1 Will start a daily med. Vitamin D deficiency 347 48922 E55.9 Body mass index 30+ - obesity 093727753 E66.01 Z68.35 [id number] Gera Jang MD Main Office [address] [facility] [address] [place] [address] 05/14/2019 11:13:50 05/14/2019 12:06:01 Anxiety state F41.1 Will stop sertraline because of muscle twitching and start lexapro. If not helpful or develops SE's we will refer her to Dr Matthew for a med consult. [id number] Gera Jang MD Main Office [address] [address] [place] [address] 06/26/2019 09:59:40 06/26/2019 10:58:18 Anxiety state F41.1 Doing much better on lexapro and anxiety is no longer a problem. Could not tolerate zoloft because of muscle twitching. [id number] Jodee cantu MD [facility] [address] [address] [place] [address] 02/22/2020 12:51:33 02/22/2020 14:23:09 Asthmatic bronchitis 009494493 J45.909 Rest, hydration, start antibiotic and inhaler. If not improving pt will call back and consider adding oral steroid burst or taper. [id number] Gera Jang MD Main Office [address] [address] [place] [address] 08/03/2022 14:09:21 08/03/2022 15:35:05 Tachycardia 2358572 R00.0 Sinus tachycardi a most likely secondary to anxiety. Possible relation to previous viral infection. Will treat her anxiety. No meds specifical ly for her heart rate just yet. Generalize d anxiety disorder 17488093 F41.1 This has been an intermitte nt [...] None Recorded Advance Directives Directive Y: Payers Insurance Date Sequence Insurance Name Policy Number Policy Pradhan Covered Member ID Pradhan Member ID Guarantor Name 08/02/2022 1 [place] [id number] Rocco Whitmore [id number] Rocco Whitmore 03/09/2024 1 R (PPO) [id number] Suzy Whitmore [id number] Rocco Whitmore 07/04/[address] [facility] (PPO) [id number] Rocco Whitmore [id number] Rocco Whitmore Notes Date Note Type Note Provider Name and Address Organization Details Recorded Time 04/11/2019 text/html Generic HPI TemplateReported bypatient.Notes:She takes lorazepam prn anxiety but which helps but she feels that her anxiety is getting worse and would like to start a daily med. Gera Jang MD [address], [address], [facility] 04/11/2019 12:32:54 05/14/2019 text/html She has seen [...] with a lorazepam. Gera Jang MD [address], [address], [facility] 05/14/2019 12:47:30 06/26/2019 text/html Anxiety/Depressi onRepo rted [...] stopping the zoloft Gera Jang MD [address] [facility] [address], [place], [address], [facility] 06/26/2019 11:01:08 02/22/2020 text/html TH visit for cou gh and wheezing with some slight SOB. She has had a cold for 2 weeks and the nasal congestion is better but tight cough has persisted. Very mild SOB when coughing, wheezing intermittently. No hx smoking, asthma or copd. No leg pain or swelling, no chest pain Glenda Copelandthuy curtis, [facility] 02/22/2020 13:37:58 08/03/2022 text/html She started with [...] celexa in the past. Gera Jang MD [address] [facility] [address], [place], [address], [facility] 08/04/2022 07:45:52 OBGyn Episode No OBEpisode recorded.
[2024-11-27 08:04] LABS: Free T4 (Free Thyroxine) 0.90 ng/dL (0.71-1.85); Thyroid Stimulating Hormone 3.70 uIU/mL (0.32-4.0)
== END 2024-11-27 06:39 | disposition home or self-care (01) ==
LOC: HO.LAB 06:38
PROVIDERS: PCP Internal Medicine; Visit Provider Internal Medicine Endocrinology, Diabetes & Metabolism
DX: E05.90 Thyrotoxicosis, unspecified without thyrotoxic crisis or storm (principal)
CPT/HCPCS: 36415; 84439; 84443; 84481

== ENCOUNTER 2024-12-03 07:56 | Outpatient (AMB) | payer OTHER, SELFPAY ==
--- NOTE | 2024-12-03 07:58 | A.OFFVIS_ITS ---
Vital Signs 12/03/24 08:01 Height 5 ft 7 in Weight 264 lb 8.875 oz BMI 41.4 BP 114/72 Blood Pressure Location Rt brachial Position Sitting Pulse 93 Pulse Source Pulse Oximeter Pulse Oximetry (%) 98 Oxygen Delivery Method Room Air Intake Visit Reasons: f/u hyperthyroidism due to Graves Intake Note: Patient present today for Hyperthyroidism follow up. [employer] Attendant Required: No Accompanied by: Self / Same As Patient Allergies Penicillins Allergy (Verified 12/03/24 08:02) Rash sertraline Adverse Reaction (Verified 12/03/24 08:02) twitching Medication List - Last Reconciled 12/03/24 by Ravinder Aquino MD lorazepam 1 mg PO BID PRN methimazole 5 mg (1/2 x 10 mg) PO DAILY HPI Comments Details: 54 YO F withwho is seen in consultation for hyperthyroidism Currently denies any dysphagia or hoarseness of voice. Denies sensation of swelling in the neck or difficulty breathing while lying flat. Denies any tenderness in the neck. Has palpitations, tremors, weight loss, frequent bowel movements. Denies any ocular complaints, blurred or double vision. Denies hair loss, dry skin, + heat, . Denies any history of head or neck irradiation. Denies any family history of thyroid cance or thyroid problems . Denies use of kelp or seaweed . No use of biotin No use of amiodarone Labs: Consistent with Graves disease Patient currently on methimazole 5 mg q.d. but misses doses Not taking propanolol . Feeling fine . No sx of hyperthyroidism . TSH was high normal The patient is a 54-year-old female presenting for management of thyroid dysfunction and evaluation of potential remission. The patient has been on methimazole for less than two years to manage her thyroid dysfunction. Her thyroid levels were noted to be low normal, suggesting improvement and potential remission. The patient is currently taking half of a 10 mg tablet of methimazole, with plans to reduce the dose to half of a 5 mg tablet. The patient denies any ocular symptoms and does not smoke. A neck examination revealed that the thyroid gland is not significantly enlarged, which is a positive prognostic sign for remission. The plan includes checking TSI antibodies to confirm remission status, as negative antibodies would indicate remission. The patient is advised to have the antibody test done as soon as possible, with follow-up planned in four weeks to reassess the condition. [facility] Medical History (Updated 08/12/22 @ 15:04 by Ravinder Aquino MD) Hyperthyroidism Surgical History Hx of colonoscopy Family History Mother No known health problems Father Colon cancer Brother Colon cancer Social History Household Members: Spouse Household Members Other:: , 2 kids, mother Alcohol intake: current Alcohol intake frequency: does not drink Patient Tobacco Use Status: Never used Tobacco Second Hand Smoke Exposure: No Physical Exam Vital Signs: Last Vital Signs Pulse 93 12/03/24 08:01 BP 114/72 12/03/24 08:01 Pulse Ox 98 12/03/24 08:01 Oxygen Delivery Method Room Air 12/03/24 08:01 BMI result Body Mass Index 41.4 Assessment & Plan Assessment & Plan (1) Hyperthyroidism: Code(s): E05.90 - Thyrotoxicosis, unspecified without thyrotoxic crisis or storm Category: Medical Plan: This 54-year-old white female with a history of hyperthyroidism due to Graves disease. Currently being treated with methimazole 5 mg q.d.. She appears to be clinically euthyroid but has a high normal TSH Plan is to decrease the methimazole to 2.5 mg recheck thyroid function studies in 4 weeks. We will also check TSI antibodies and if negative could consider holding the methimazole. I went over different options of treatment including the continue use of methimazole versus surgery versus radioactive iodine treatment. Patient is opting stay on the anti-thyroid medication for now 1. Thyroid dysfunction The patient is currently on methimazole, with thyroid levels showing low normal values, indicating potential remission. The plan is to reduce the methimazole dose to half of a 5 mg tablet and to check TSI antibodies to confirm remission status. If antibodies are negative, the medication may be stopped, and the patient will be reassessed in four weeks. I discussed with the patient the potential remission of her thyroid dysfunction and the importance of checking TSI antibodies to confirm this status. We talked about reducing her methimazole dose and the possibility of discontinuing the medication if the antibodies are negative. I advised her to have the antibody test done as soon as possible and to follow up in four weeks to reassess her condition. - Reduce methimazole dose to half of a 5 mg tablet as discussed. - Get TSI antibody test done as soon as possible. - Follow up TFTs in four weeks for reassessment. The patient had an opportunity to ask questions regarding treatment plan. The patient expressed understanding and agreement with the above treatment plan. Patient was informed and verbally consented to the use of an ambient scribe for clinic note documentation during this visit. Orders: Orders Triiodothyronine T3 Free 4 Weeks E05.90 - Thyrotoxicosis, unspecified without thyrotoxic crisis or storm Thyroid Stimulating Immunoglob Today E05.90 - Thyrotoxicosis, unspecified without thyrotoxic crisis or storm Free T4 (Free Thyroxine) 4 Weeks E05.90 - Thyrotoxicosis, unspecified without thyrotoxic crisis or storm Thyroid Stimulating Hormone 4 Weeks E05.90 - Thyrotoxicosis, unspecified without thyrotoxic crisis or storm Medications: New methimazole 2.5 mg (1/2 x 5 mg) PO DAILY 14 tabs 5RF methimazole 5 mg PO DAILY 14 tabs 5RF Discontinued methimazole Discontinued Reason: Doctor's Order 5 mg (1/2 x 10 mg) PO DAILY 42 tabs 3RF Coding Level of Care Code Est Pt Level 3 (09579) Diagnoses Hyperthyroidism E05.90
--- OUTSIDE RECORDS SUMMARY | 2024-12-03 07:59 | XMS_ITS | Data Portability ---
Author Organization [facility], Main Office Address [address] [facility] [address] [place] [address] Care Team Providers Care Warehouse Shift Supervisor Name Role Phone GERA JANG Primary Care Provider CHERI GODINEZ Position Classifier VIC SANTIAGO Referring Provider [phone] MEENU CHAMBERS JR Referring Provider [phone] TANA ROSARIO Referring Provider Assessment Encounter Date [...] or plasma 2022 023 [facility], [address], [address], [place], [address], 21:35:16 BMP, serum or plasma 2022 023 [facility], [address], [address], [place], [address], 3 20:42:52 CBC w/ auto diff 2022 023 [facility], [address], [address], [place], [address], 3 20:05:56 TSH, serum or plasma 2018 019 [email or web address] [facility], [address], [address], [place], [address], 0 09:10:00 CBC w/ auto diff 2018 019 [facility], [address], [address], [place], [address], 0 09:10:00 vitami n D, 25-hyd summer, total, serum 2018 019 [facility], [address], [address], [place], [address], 9 15:55:34 CMP, serum or plasma 2018 019 [facility], [address], [address], [place], [address], 9 16:55:55 lipid panel, serum 2018 019 [facility], [address], [address], [place], [address], 9 15:37:54 Referral nutrit ionist /dieti nafisa referr al 2018 019 [email or web address] Not available 9 13:20:41 Procedures None record ed. Surgeries None record ed. Imaging electr ocardi ogram 2022 023 [email or web address] In-Office Order, Internal Use Only DO Not Attach Compendium DO Not Attach Compendium, Do Not Delete/merge, [id number] 3 15:35:06 Medication Orders loraze mary ellen 1 mg tablet 2022 023 [facility] #0838, [address] [place], [address], 3 07:36:07 doxycy garcia hyclat e 100 mg capsul e 2019 020 [email or web address] [facility] #0838, [address] [place], [address], 3 14:37:17 ProAir HFA 90 mcg/ac tuatio n aeroso l inhale r 2019 020 [facility], [address] [place], [address], 3 15:21:09 escita lopram 20 mg tablet 2019 020 [facility], [address] [place], [address], 0 12:57:09 loraze mary ellen 0.5 mg tablet 2018 019 [facility] #0838, [address] [place], [address], 3 15:14:58 escita lopram 20 mg tablet 2018 019 [facility]/Pharmacy #0838, [address] [place] [address], [address], 0 12:57:09 sertra line 100 mg tablet 2018 019 [facility]/Pharmacy #0838, [address] [place], [address], 0 10:17:03 sertra line 50 mg tablet 2018 019 [facility]/Pharmacy #0838, [address] [place], [address], 9 11:25:50 loraze mary ellen 0.5 mg tablet 2018 019 [facility] #0838, [address] [place], [address], 3 15:14:58 Patient TargetsNo targets recorded. Patient Instructions Encounter Date Encounter Id Patient Instructions Last Modified By Organization Details Last Modified Time 04/11/2019 [id number] anxiety disorder: care instructions [email or web address] Not available 04/11/2019 11:41:16 starting a weight loss plan: care instructions acennerazzo Not available 04/11/2019 11:41:17 Nutrition Referral and Weight Management Follow-up Information [email or web address] Not available 04/11/2019 11:41:17 05/14/2019 [id number] anxiety disorder: care instructions [email or web address] Not available 05/14/2019 11:59:19 08/03/2022 [id number] anxiety disorder: care instructions acennerazzo Not available 08/03/2022 15:30:36 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 Refer ence: [facility] Data Brief : No.59 July: Vitam in [...] Go To The Location Of Their Choice, [id number] 04/19/2019 16:55:55 08/04/1908/03/2022 COMPL ETE CBC WITH [...] observ ation record ed. [facility] [address], [address], 04/11/2019 12:32:02 08/04/19 23 08/03/2022 elect manuel [...] Organization Details Recorded Time Acute bronchit is 57551044 Completed 201101/03/2014 RECORDED 01/28/20 12 3:24PM BY JAVIER JI ON/ADDEN DUM Not Available [facility] 4 12:31:46 Acute pharyngi tis 219595123 Completed 201101/03/2014 RECORDED 01/28/20 12 3:24PM BY JAVIER JI ON/ADDEN DUM Not Available [facility] 4 12:31:46 Acute sinusiti s 15506400 Completed 201101/03/2014 IMPRESSI ON: FAILED TREATMEN T WITH BIAXIN.; RECORDED 01/28/20 12 3:24PM BY JAVIER JI ON/ADDEN DUM Not Available [facility] 4 12:31:46 Cough 16801259 Completed 201101/03/2014 RECORDED 01/28/20 12 3:24PM BY JAVIER JI ON/ADDEN DUM Not Available [facility] 4 12:31:46 Degenera tion of interver tebral disc 47851121 Completed 201101/03/2014 RECORDED 01/28/20 12 3:24PM BY JAVIER JI ON/ADDEN DUM Not Available [facility] 4 12:31:46 Dizzines s and giddines s 350041379 Completed 201101/03/2014 RECORDED 01/28/20 12 3:24PM BY JAVIER JI ON/ADDEN DUM Not Available [facility] 4 12:31:47 Adult health examinat ion Completed 201101/03/2014 RECORDED 05/02/20 12 10:01AM BY JAVIER MCNEILL ON/ADDEN DUM Not Available [facility] 4 12:31:47 Administ ration of bacteria l and viral vaccine Completed 200701/03/2014 RECORDED 04/12/20 08 1:30PM BY PETER CHAPMAN, OFFICE VISIT Not Available [facility] 4 12:31:47 Otalgia 09376409 Completed 201101/03/2014 RECORDED 01/28/20 12 3:24PM BY KITTY PALMER I ANNOTATI ON/ADDEN DUM Not Available [facility] 4 12:31:47 Influenz a vaccine needed 37739301109 06 Completed 201101/03/2014 RECORDED 02/02/20 12 2:58PM BY KITTY PALMER I, OFFICE VISIT Not Available [facility] 4 12:31:47 Idiopath ic peripher al neuropat hy 58152323 Completed 200801/03/2014 RECORDED 03/15/20 09 10:19AM BY SINTIA HICKS MD, ANNOTATI ON/ADDEN DUM Not Available [facility] 4 12:31:47 Acute bronchit is 36830113 Completed 201101/04/2014 RECORDED 01/28/20 12 3:24PM BY FARRKUH JIATI ON/ADDEN DUM Not Available [facility] 4 03:40:28 Acute pharyngi tis 951682359 Completed 201101/04/2014 RECORDED 01/28/20 12 3:24PM BY KITTY PALMER I ANNOTATI ON/ADDEN DUM Not Available [facility] 4 03:40:28 Acute sinusiti s 10580835 Completed 201101/04/2014 IMPRESSI ON: FAILED TREATMEN T WITH BIAXIN.; RECORDED 01/28/20 12 3:24PM BY FARRUKH JIATI ON/ADDEN DUM Not Available [facility] 4 03:40:28 Cough 79414362 Completed 201101/04/2014 RECORDED 01/28/20 12 3:24PM BY KITTY PALMER I ANNOTATI ON/ADDEN DUM Not Available [facility] 4 03:40:28 Degenera tion of interver tebral disc 20116693 Completed 201101/04/2014 RECORDED 01/28/20 12 3:24PM BY KITTY PALMER I, ANNOTATI ON/ADDEN DUM Not Available [facility] 4 03:40:28 Dizzines s and giddines s 976551483 Completed 201101/04/2014 RECORDED 01/28/20 12 3:24PM BY KITTY PALMER I, ANNOTATI ON/ADDEN DUM Not Available [facility] 4 03:40:28 Adult health examinat ion Completed 201101/04/2014 RECORDED 05/02/20 12 10:01AM BY OPAL HAMMOND, FARRUKHATI ON/ADDEN DUM Not Available [facility] 4 03:40:28 Administ ration of bacteria l and viral vaccine Completed 200701/04/2014 RECORDED 04/12/20 08 1:30PM BY PETER CHAPMAN, OFFICE VISIT Not Available [facility] 4 03:40:28 Otalgia 73163468 Completed 201101/04/2014 RECORDED 01/28/20 12 3:24PM BY KITTY PALMER I, ANNOTATI ON/ADDEN DUM Not Available [facility] 4 03:40:28 Influenz a vaccine needed 38349522748 06 Completed 201101/04/2014 RECORDED 02/02/20 12 2:58PM BY KITTY PALMER I, OFFICE VISIT Not Available [facility] 4 03:40:28 Idiopath ic peripher al neuropat hy 36553426 Completed 200801/04/2014 RECORDED 03/15/20 09 10:19AM BY SINTIA HICKS MD, ANNOTATI ON/ADDEN DUM Not Available [facility] 4 03:40:28 Low back pain 330371928 Active Gera Jang MD [address] [facility] [address], [place], [address] , [facility] 5 12:14:46 Vitamin D deficien cy 47800562 Active 2017 Gera Jang MD [address] [facility] [address], [place], [address] , [facility] 8 19:36:58 Hyperthy roidism 19316440 Active 2022 Gera Jang MD [address], [place], [address] , [facility] 3 12:44:41 Graves' disease 015603395 Active 2022 Seen by endo in [place]. Gera Jang MD [address], [place], [address] , [facility] 3 09:25:21 Acute bronchit is 33598660 Completed 201112/11/2013 RECORDED 01/28/20 12 3:24PM BY JAVIER JI ON/ADDEN DUM Not Available [facility] 4 14:09:51 Acute pharyngi tis 600938168 Completed 201112/11/2013 RECORDED 01/28/20 12 3:24PM BY KITTY PALMER I ANNOTATI ON/ADDEN DUM Not Available [facility] 4 14:09:51 Acute sinusiti s 06787034 Completed 201112/11/2013 IMPRESSI ON: FAILED TREATMEN T WITH BIAXIN.; RECORDED 01/28/20 12 3:24PM BY KITTY PALMER I ANNOTATI ON/ADDEN DUM Not Available [facility] 4 14:09:51 Anxiety state 234997211 Active 2012 No longer on meds and no longer an issue Gera Jang MD [address], [place], [address] , [facility] 6 11:21:32 Patient status finding 005503635 Completed 201202/17/2016 RECORDED 06/06/19 13 9:57AM BY KITTY PALMER I, OFFICE VISIT Gera Jang MD [address], [place], [address] , [facility] 6 11:20:59 Chest pain 00127751 Completed 201202/22/2020 [place], [facility] 0 12:57:33 Cough 51345572 Completed 201112/11/2013 RECORDED 01/28/20 12 3:24PM BY KITTY PALMER I ANNOTATI ON/ADDEN DUM Not Available [facility] 4 14:09:51 Degenera tion of interver tebral disc 65018828 Completed 201112/11/2013 RECORDED 01/28/20 12 3:24PM BY KITTY PALMER I ANNOTATI ON/ADDEN DUM Not Available [facility] 4 14:09:51 Dizzines s and giddines s 538076641 Completed 201112/11/2013 RECORDED 01/28/20 12 3:24PM BY KITTY PALMER I ANNOTATI ON/ADDEN DUM Not Available [facility] 4 14:09:51 Adult health examinat ion Completed 201112/11/2013 RECORDED 05/02/20 12 10:01AM BY FARRKUH MCNEILLATI ON/ADDEN DUM Not Available [facility] 4 14:09:51 Glaucoma 78318228 Active 2012 Had surgery 2011; not on drops Gera Jang MD [address] [address], [facility] [place], [address] , [facility] 6 11:22:24 Administ ration of bacteria l and viral vaccine Completed 200712/11/2013 RECORDED 04/12/20 08 1:30PM BY PETER CHAPMAN, OFFICE VISIT Not Available [facility] 4 14:09:52 Otalgia 62184881 Completed 201112/11/2013 RECORDED 01/28/20 12 3:24PM BY KITTY PALMER I ANNOTATI ON/ADDEN DUM Not Available [facility] 4 14:09:52 Overweig ht 137502545 Active 2012 P[place] [facility] 0 12:57:39 Palpitat ions 22980437 Active 2012 Jovanna BaySalina abenaarethaPENG, [facility] 0 12:57:37 Influenz a vaccine needed 64966433139 06 Completed 201112/11/2013 RECORDED 02/02/20 12 2:58PM BY KITTY PALMER I, OFFICE VISIT Not Available [facility] 4 14:09:52 Idiopath ic peripher al neuropat hy 68487443 Completed 200812/11/2013 RECORDED 03/15/20 09 10:19AM BY SINTIA HICKS MD, ANNOTATI ON/ADDEN DUM Not Available [facility] 4 14:09:52 Problem Notes None recorded. Procedures Surgical History Date Name Laterality Status Provider Name and Address Organization Details Recorded Time 06/14/19 19 Date of [facility] 15:42:41 06/14/19 19 Colonoscopy completed Cintia [facility] 06/14/2018 15:42:32 Imaging Results None recorded. Procedure Notes None recorded. Medical Equipment None Reported. Allergies Allergen ID Allergen Name Allergen Category Reaction Reaction Severity Criticality Documentation Date Start Date Code Code System Note Provider Name and Address Organization Details Recorded Time 1660 Product containin g penicilli n (product) medicatio n Not available Not available Not available 12/11/20132012 35131 8001 SNOMED Jovanna BayHayden asezPENG, [facility] 0 12:56:48 14599 sertralin e medicatio n palpitati ons moderate Not available 05/14/2019 65951 RxNorm [facility] maryuri rodríguez MD [address] [facility] [address], [facility] [address], [facility] 9 12:25:02 Medications Name Sig Start Date [...] blood by Pulse oximetry Body temperature Systolic And Diastolic Provider Name and Address Organization Details Last Updated DateTime 0 170.18 cm 39.5 kg/m2 440184. 28 g 60 /min 98 % 98 % 98.3 [degF] 118/62 mm[Hg] Kitty [facility]quist [facility] 0 10:17:58 Date Recorded Body height Body mass index (BMI) Body weight Heart rate Oxygen saturation Oxygen saturation in Arterial blood by Pulse oximetry Body temperature Systolic And Diastolic Provider Name and Address Organization Details Last Updated DateTime 3 170.18 cm 41.3 kg/m2 630725. 59 g 119 /min 98 % 98 % 98.7 [degF] 130/83 mm[Hg] Geovanna Jefferson MA [facility] 3 14:39:52 Date Recorded Body height Provider Name an d Address Organization Details Last Updated DateTime 02/22/2020 170.18 cm Jovanna Young MA [facility] 02/22/2020 12:56:37 Date Recorded Body height Body mass index (BMI) Body weight Heart rate Oxygen saturation Oxygen saturation in Arterial blood by Pulse oximetry Body temperature Systolic And Diastolic Provider Name and Address Organization Details Last Updated DateTime 9 170.18 cm 37.9 kg/m2 007504. 35 g 72 /min 98 % 98 % 98.4 [degF] 116/62 mm[Hg] Kitty Lindquist [facility] 9 11:02:18 Date Recorded Body height Body mass index (BMI) Body weight Heart rate Oxygen saturation Oxygen saturation in Arterial blood by Pulse oximetry Body temperature Systolic And Diastolic Provider Name and Address Organization Details Last Updated DateTime 9 170.18 cm 38.7 kg/m2 236844. 32 g 75 /min 98 % 98 % 98.6 [degF] 114/72 mm[Hg] Kitty Lindquist [facility] 9 11:25:18 Social History Question Answer Notes LastModified by Organizat ion Details LastModified Time Tobacco Smoking Status Never Smoker Not Available [facility] 04/01/2020 03:36:36 Do You Have An Advance Directive? Yes [id number] Information not available 04/01/2020 Is Blood Transfusion Acceptable In An Emergency? Yes [id number] Information not available 04/01/2020 What Is Your Level Of Caffeine Consumption? Occasional [id number] Information not available 04/01/2020 How Much Tobacco Do You Chew? None [id number] Information not available 04/01/2020 What Type Of Diet Are You Following? REGULAR [id number] Information not available 04/01/2020 Which Illicit Or Recreational Drugs Have You Used? None [id number] Information not available 04/01/2020 Live Alone Or With Others? With Others (Rocco) And Two Children [email or web address] Information not available 11/27/2014 Do You Take Precautions To Prevent Distracted Driving? Yes Caternanam Information not available 02/17/2016 How Often Do You Need To Have Someone Help You When You Read Instructions, Pamphlets, Or Other Written Material From Your Doctor Or Pharmacy? Never [employer] Information not available 02/17/2016 Have You Served In The ? No [employer] Information not available 02/17/2016 Have You Or [...] Of Your Most Recent Tobacco Screening? 02/22/2020 [id number] Information not available 04/01/2020 How Many Children Do You Have? 2 Son Born 2003 And Daughter Born 2005 [id number] Information not available 04/01/2020 Do You Use Protection During Sex? No [id number] Information not available 04/01/2020 Seat Belts Used Routinely Yes [employer] Information not available 02/17/2016 Are You Sexually Active? Yes [id number] Information not available 04/01/2020 Smoke Alarm In Home Yes [employer] Information not available 02/17/2016 At What Age Did You Start Smoking Tobacco? 1 [id number] Information not available 04/01/2020 Are You Passively Exposed To Smoke? No [employer] Information not available 02/17/2016 How Much Tobacco Do You Smoke? No [id number] Information not available 04/01/2020 Do You Use Sunscreen Routinely? Yes [id number] Information not available 04/01/2020 How Many Years Have You Smoked Tobacco? 0 [id number] Information not available 04/01/2020 Sex: Unknown Functional Status Question Answer Note LastModified by Organizat ion Details LastModified Time What is your level of alcohol consumption? Occasional [id number] Information not available 04/01/2020 Do you or have you ever used smokeless tobacco? Never used smokeless tobacco [id number] Information not available 04/01/2020 Are you currently employed? Yes [id number] Information not available 04/01/2020 Are you able to care for yourself? Yes [id number] Information not available 04/01/2020 What is your occupation? [employer] [id number] Information not available 04/01/2020 Do you or have you ever used e-cigarettes or vape? Never used electronic cigarettes [id number] Information not available 04/01/2020 What is your exercise level? Occasional [id number] Information not available 04/01/2020 Mental Status None [...] valent, preservative free, pediatric 0 [facility] 14:32:24 Influenza, MDCK, quadrivalent, PF 2 completed [facility] 14:32:24 COVID-19, mRNA, LNP-S, PF, 30 mcg/0.3 mL dose 1 [facility] 14:32:24 COVID-19, mRNA, LNP-S, PF, 30 mcg/0.3 mL dose 1 completed [facility] 08/[facility]/2022 14:32:24 COVID-19, mRNA, LNP-S, PF, 30 mcg/0.3 mL dose 1 completed [facility] 08/03/2022 14:32:24 COVID-19, mRNA, LNP-S, bivalent, PF, 30 mcg/0.3 mL dose 2 completed [facility] 08/03/2022 14:32:24 Influenza, split virus, quadrivalent, PF 1 completed Geovanna Jefferson MA [facility] 08/03/2022 14:32:25 Tdap 8 completed Not Available [facility] 12/11/2013 13:29:34 Influenza, split virus, quadrivalent, PF 6 completed Not Available [facility] 06/16/2019 02:22:04 Influenza, split virus, quadrivalent, PF 8 completed Not Available [facility] 06/16/2019 02:22:16 Td (adult), 2 Lf tetanus toxoid, preservative free, adsorbed 8 completed Not Available [facility] 06/16/2019 02:21:30 Influenza, split virus, quadrivalent, PF 9 completed Not Available [facility] 06/16/2019 02:22:10 Past Encounters Encounter ID Performer Location Encounter Start Date Encounter Closed Date Diagnosis/Indication Diagnosis SNOMED-CT Code Diagnosis ICD10 Code Diagnosis Note [id number] autoEComm erce [address] [facility] [place] [id number] 11/17/2006 00:00:00 [id number] autoEComm erce [address] [facility] [place] [id number] 12/07/2006 00:00:00 [id number] autoEComm erce [address] [facility] [place] [id number] 04/12/2008 00:00:00 [id number] autoEComm erce [address] [facility] [place] [id number] 03/12/2009 00:00:00 [id number] autoEComm erce [address] [facility] [place] [id number] 03/15/2009 00:00:00 [id number] autoEComm erce [address] [facility] [place] [id number] 04/29/2009 00:00:00 [id number] autoEComm erce [address] [facility] [place] [id number] 09/29/2009 00:00:00 [id number] autoEComm erce [address] [facility] [place], [place] [id number] 10/29/2010 00:00:00 [id number] autoEComm erce [address] [facility] [place], [place] [id number] 04/06/2011 00:00:00 [id number] autoEComm erce [address] [facility] [place], [place] [id number] 06/28/2011 00:00:00 [id number] autoEComm erce [address] [facility] [place], [place] [id number] 07/12/2011 00:00:00 [id number] autoEComm erce [address] [facility] [place], [place] [id number] 02/02/2012 00:00:00 [id number] autoEComm erce [address] [facility] [place], [place] [id number] 05/02/2012 00:00:00 [id number] autoEComm erce [address] [facility] [place], [place] [id number] 06/06/2012 00:00:00 [id number] Gera Jang MD Main Office [address] [address] [place] [address] 11/27/2014 10:40:00 11/27/2014 11:33:20 Low back pain 443615183 appears to be muscular. She will call next week if not improving. [id number] Gera Jang MD Main Office [address] [address] [place] [address] 02/17/2016 10:34:54 02/17/2016 11:41:46 Adult health examination 549225343 Z00.00 Needs infl uenza immunization 869910239 Z23 Screening for malignant neoplasm of colon 414410177 Z12.11 Her father had colon cancer in his late 50's. [id number] Gera Jang MD Main Office [address] [address] [place] [address] 07/04/2017 14:31:16 07/04/2017 15:29:11 Low back pain 096673173 M54.5 appears to be muscular. She will call next week if not improving. [id number] Carmella Escobar PA-C Main Office [address] [place] [id number] 03/22/2018 15:04:48 03/22/2018 16:04:36 Needs influenza immunization 819502254 Z23 Dysuria 27938124 R30.0 Abdominal pain 12215444 R10.9 Unclear etiology L. mid back and mid abdomina; discomfort . Pt. reassured at this point examinatio n and urine test are completely normal./ Will order labs and xrays to investigat e further. Acute thor acic back pain 672430859 M54.6 ? pleurisy. L./ side. [id number] Gera Jang MD Main Office [address] [address] [place] [id number] 04/07/2018 10:16:55 04/07/2018 11:06:15 Adult health examination 314768643 Z00.00 We will update her immunizati ons. She is UTD with [employer] care and mammogram. I encouraged her to make an appointmen t for a colonoscop y given her strong family hx. Requires a tetanus booster 143765640 Z23 Screening for malignant neoplasm of colon 154803487 Z12.11 Her father had colon cancer in his late 50's. Flank pain 370787237 R10 .9 [id number] Gera Jang MD Main Office [address] [address] [place] [id number] 03/05/2019 15:13:02 03/05/2019 16:22:28 Benign paroxysmal positional vertigo 436704853 H81.10 Needs infl uenza immunization 992012881 Z23 Anxiety 87730494 F41.9 [id number] Gera Jang MD Main Office [address] [place] [address] [place] [id number] 04/11/2019 10:43:44 04/11/2019 11:42:04 Adult health examination 413417844 Z00.00 She is UTD with immunizati ons, colonoscop y, [employer] care and mammogram. Anxiety state [id number] F41.1 Will start a daily med. Vitamin D deficiency [id number] E55.9 Body mass index 30+ - obesity [id number] E66.01 Z68.35 [id number] Gera Jang MD Main Office [address] [address] [place] [address] 05/14/2019 11:13:50 05/14/2019 12:06:01 Anxiety state [id number] F41.1 Will stop sertraline because of muscle twitching and start lexapro. If not helpful or develops SE's we will refer her to Dr Matthew for a med consult. [id number] Gera Jang MD Main Office [address] [address] [place] [address] 06/26/2019 09:59:40 06/26/2019 10:58:18 Anxiety state [id number] F41.1 Doing much better on lexapro and anxiety is no longer a problem. Could not tolerate zoloft because of muscle twitching. [id number] [facility] [address] [address] [place] [address] 02/22/2020 12:51:33 02/22/2020 14:23:09 Asthmatic bronchitis [id number] J45.909 Rest, hydration, start antibiotic and inhaler. If not improving pt will call back and consider adding oral steroid burst or taper. [id number] Gera Jang MD Main Office [address] [address] [place] [address] 08/03/2022 14:09:21 08/03/2022 15:35:05 Tachycardia [id number] R00.0 Sinus tachycardi a most likely secondary to anxiety. Possible relation to previous viral infection. Will treat her anxiety. No meds specifical ly for her heart rate just yet. Generalize d anxiety disorder [id number] F41.1 This has been an intermitte nt [...] Pradhan Member ID Guarantor Name 08/02/2022 1 [employer]-[facility] (PPO) [id number] Rocco Whitmore [id number] Rocco Whitmore 03/09/2024 1 R (PPO) [id number] Suzy Whitmore [id number] Rocco Whitmore 07/04/2017 1 [facility] (PPO) [id number] Rocco Whitmore [id number] Rocco Whitmore Notes Date Note Type Note Provider Name and Address Organization Details Recorded Time 04/11/2019 text/html Generic HPI TemplateReported bypatient.Notes:She takes lorazepam prn anxiety but which helps but she feels that her anxiety is getting worse and would like to start a daily med. Gera Jang MD [address], [address] 04/11/2019 12:32:54 05/14/2019 text/html She has [...] 90% with a lorazepam. Gera Jang MD [facility] [address], [address], [facility] 05/14/2019 12:47:30 06/26/2019 text/html Anxiety/Depressi onRepo [...] stopping the zoloft Gera Jang MD [address] [place], [address], [facility] 06/26/2019 11:01:08 02/22/2020 text/html TH visit for cou gh and wheezing with some slight SOB. She has had a cold for 2 weeks and the nasal congestion is better but tight cough has persisted. Very mild SOB when coughing, wheezing intermittently. No hx smoking, asthma or copd. No leg pain or swelling, no chest pain Glenda Copelandthuy curtis, [facility] 02/22/2020 13:37:58 08/03/2022 text/html She started with [...] celexa in the past. Gera Jang MD [address] [facility] [address], [place], [address], [facility] 08/04/2022 07:45:52 OBGyn Episode No OBEpisode recorded.
[2024-12-03 08:01] VITALS: BP 114/72; PULSE 93; O2SAT 98; BMI 41.4
== END 2024-12-03 08:13 | disposition home or self-care (01) ==
LOC: HO.ENCR 07:56
PROVIDERS: PCP Internal Medicine; Visit Provider Internal Medicine Endocrinology, Diabetes & Metabolism
DX: E05.90 Thyrotoxicosis, unspecified without thyrotoxic crisis or storm (principal)
CPT/HCPCS: 99213

== ENCOUNTER 2025-04-23 06:35 | Outpatient (REF) | payer OTHER, SELFPAY ==
--- OUTSIDE RECORDS SUMMARY | 2025-04-23 06:38 | XMS_ITS | Data Portability ---
Author Organization [facility], Main Office Address [address] [place] [address] Care Team Providers Care Psychologist Engineering Name Role Phone GERA JANG Primary Care Provider CHERI GODINEZ Glass Belt Sander VIC SANTIAGO Referring Provider MEENU CHAMBERS JR Referring Provider TANA ROSARIO Referring Provider [phone] Assessment Encounter Date Assessment Date Assessment LastModified [...] or plasma 2022 023 [facility], [address], [address], [place], [address], 21:35:16 BMP, serum or plasma 2022 023 [facility], [address], [address], [place], [address], 3 20:42:52 CBC w/ auto diff 2022 023 [facility], [address], [address], [place], [address], 3 20:05:56 TSH, serum or plasma 2018 019 [email or web address] [facility], [address], [address], [place], [address], 0 09:10:00 CBC w/ auto diff 2018 019 [email or web address] [facility], [address], [address], [place], [address], 0 09:10:00 vitami n D, 25-hyd summer, total, serum 2018 019 [facility], [address], [address], [place], [address], 9 15:55:34 CMP, serum or plasma 2018 019 [facility], [address], [address], [place], [address], 9 16:55:55 lipid panel, serum 2018 019 [facility], [address], [address], [place], [address], 9 15:37:54 Referral nutrit ionist /dieti nafisa referr al 2018 019 abigby Not available 9 13:20:41 Procedures None record ed. Surgeries None record ed. Imaging electr ocardi ogram 2022 023 [email or web address] In-Office Order, Internal Use Only DO Not Attach Compendium DO Not Attach Compendium, Do Not Delete/merge, [id number] 3 15:35:06 Medication Orders loraze mary ellen 1 mg tablet 2022 023 [facility], [address] [place], [address], 3 07:36:07 doxycy garcia hyclat e 100 mg capsul e 2019 020 [email or web address] [facility], [address] [place], [address], 3 14:37:17 ProAir HFA 90 mcg/ac tuatio n aeroso l inhale r [address] [facility] [address] [place], [address], 3 15:21:09 escita lopram 20 mg tablet 2019 020 [facility] [address] [place], [address], 0 12:57:09 loraze mary ellen 0.5 mg tablet [address] [facility], [address] [place], [address], 3 15:14:58 escita lopram 20 mg tablet 2018 019 [facility]0838, [address] [place] [address], [address], 0 12:57:09 sertra line 100 mg tablet 2018 019 [facility]0838, [address] [place], [address], 0 10:17:03 sertra line 50 mg tablet 2018 019 [facility], [address] [place], [address], 9 11:25:50 loraze mary ellen 0.5 mg tablet 2018 019 acennerazzo [facility], [address] [place], [address], 3 15:14:58 Patient TargetsNo targets recorded. Patient Instructions Encounter Date Encounter Id Patient Instructions Last Modified By Organization Details Last Modified Time 04/11/2019 [id number] anxiety disorder: care instructions acennerazzo Not available 04/11/2019 11:41:16 Starting a Weight-Loss Plan: Care Instructions acennerazzo Not available 04/11/2019 11:41:17 Nutrition Referral and Weight Management Follow-up Information acennerazzo Not available 04/11/2019 11:41:17 05/14/2019 [id number] anxiety disorder: care instructions acennerazzo Not available 05/14/2019 11:59:19 08/03/2022 [id number] anxiety disorder: care instructions acennerazzo Not available 08/03/2022 15:30:36 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 Refer ence: [facility] Data Brief : No.59 July: Vitam in [...] The Location Of Their Choice, 04/19/2019 16:55:55 04/19/20 19 04/19/2019 CMP, serum [...] Go To The Location Of Their Choice, [id number] 04/19/2019 16:55:55 08/04/19 23 08/03/2022 COMPL ETE [...] 08/04/1908/03/2022 COMPL ETE CBC WITH DIFF neut # [...] Go To The Location Of Their Choice, [id number] 08/03/2022 20:42:52 08/04/1908/03/2022 BASIC METAB OLIC PANEL [...] The Location Of Their Choice, 08/03/2022 20:42:52 08/04/19 23 08/03/2022 TSH TSH <0.01 uIU/m L (0.4-4 .2) low Not Available [facility] (Centralized Electronic Ordering - All Locations) Patient Can Go To The Location Of Their Choice, 08/03/2022 21:35:16 08/04/19 23 08/04/2022 FREE T3 free T3 12.6 pg/mL (2.3-5 .0) high Not Available [facility] (Centralized Electronic Ordering - All Locations) Patient Can Go To The Location Of Their Choice, 08/04/2022 09:16:00 08/04/19 23 08/04/2022 FREE T4 free T4 4.03 NG/dL (0.70- 1.80) high Not Available [facility] (Centralized Electronic Ordering - All Locations) Patient Can Go To The Location Of Their Choice, 08/04/2022 09:16:02 08/04/19 23 08/04/2022 TOTAL T3 total T3 358.0 NG/dL (80-18 0) high Not Available [facility] (Centralized Electronic Ordering - All Locations) Patient Can Go To The Location Of Their Choice, 08/04/2022 09:16:02 04/11/20 19 02/21/2019 MAMMO , violettae kinga, digit al, bilat eral No observ ation record ed. [facility] [address], [address], 04/11/2019 12:32:02 08/04/19 23 08/03/2022 elect manuel mitchell am No observ ation record ed. [email or web address] In-Office Order Internal Use Only DO Not Attach Compendium DO Not Attach Compendium, Do Not Delete/merge, [id number] 08/03/2022 15:23:46 08/04/19 rigoberto mitchell am No observ ation record ed. [facility] In-Office Order Internal Use Only DO Not Attach Compendium DO Not Attach Compendium, Do Not Delete/merge, [id number] 08/03/2022 17:21:31 Result Notes None recorded. Problems Name Problem SNOMED Code Status Onset Date Resolution Date Notes Provider Name and Address Organization Details Recorded Time Low back pain 420959995 Active Gera Jang MD [address] [facility] [address], [place], [address] , [facility] 5 12:14:46 Administ ration of bacteria l and viral vaccine Completed 200701/03/2014 RECORDED 04/12/20 08 1:30PM BY PETER CHAPMAN, OFFICE VISIT Not Available Pending sale to [facility] 4 12:31:47 Administ ration of bacteria l and viral vaccine Completed 200701/04/2014 RECORDED 04/12/20 08 1:30PM BY PETER CHAPMAN, OFFICE VISIT Not Available Pending sale to [facility] 4 03:40:28 Administ ration of bacteria l and viral vaccine Completed 200712/11/2013 RECORDED 04/12/20 08 1:30PM BY PETER CHAPMAN, OFFICE VISIT Not Available Pending sale to [facility] 4 14:09:52 Idiopath ic peripher al neuropat hy 64541774 Completed 200801/03/2014 RECORDED 03/15/20 09 10:19AM BY SINTIA HCIKS MD, ANNOTATI ON/ADDEN DUM Not Available Pending sale to [facility] 4 12:31:47 Idiopath ic peripher al neuropat hy 65142570 Completed 200801/04/2014 RECORDED 03/15/20 09 10:19AM BY SINTIA HICKS MD, ANNOTATI ON/ADDEN DUM Not Available Pending sale to [facility] 4 03:40:28 Idiopath ic peripher al neuropat hy 67865550 Completed 200812/11/2013 RECORDED 03/15/20 09 10:19AM BY SINTIA HICKS MD, ANNOTATI ON/ADDEN DUM Not Available Pending sale to [facility] 4 14:09:52 Acute bronchit is 53120624 Completed 201101/03/2014 RECORDED 01/28/20 12 3:24PM BY KITTY PALMER I, ANNOTATI ON/ADDEN DUM Not Available [facility] 4 12:31:46 Acute pharyngi tis 794325103 Completed 201101/03/2014 RECORDED 01/28/20 12 3:24PM BY FARRUKH JIATI ON/ADDEN DUM Not Available [facility] 4 12:31:46 Acute sinusiti s 47608784 Completed 201101/03/2014 IMPRESSI ON: FAILED TREATMEN T WITH BIAXIN.; RECORDED 01/28/20 12 3:24PM BY FARRUKH JIATI ON/ADDEN DUM Not Available [facility] 4 12:31:46 Cough 05857311 Completed 201101/03/2014 RECORDED 01/28/20 12 3:24PM BY FARRUKH JIATI ON/ADDEN DUM Not Available [facility] 4 12:31:46 Degenera tion of interver tebral disc Completed 201101/03/2014 RECORDED 01/28/20 12 3:24PM BY FARRUKH JIATI ON/ADDEN DUM Not Available [facility] 4 12:31:46 Dizzines s and giddines s 664511704 Completed 201101/03/2014 RECORDED 01/28/20 12 3:24PM BY FARRUKH JIATI ON/ADDEN DUM Not Available [facility] 4 12:31:47 Otalgia 67661379 Completed 201101/03/2014 RECORDED 01/28/20 12 3:24PM BY FARRUKH JIATI ON/ADDEN DUM Not Available [facility] 4 12:31:47 Acute bronchit is 36913866 Completed 201101/04/2014 RECORDED 01/28/20 12 3:24PM BY FARRUKH JIATI ON/ADDEN DUM Not Available [facility] 4 03:40:28 Acute pharyngi tis 852387729 Completed 201101/04/2014 RECORDED 01/28/20 12 3:24PM BY KITTY SCHULTZK I, ANNOTATI ON/ADDEN DUM Not Available [facility] 4 03:40:28 Acute sinusiti s 86979257 Completed 201101/04/2014 IMPRESSI ON: FAILED TREATMEN T WITH BIAXIN.; RECORDED 01/28/20 12 3:24PM BY KITTY PALMER I ANNOTATI ON/ADDEN DUM Not Available [facility] 4 03:40:28 Cough 78160253 Completed 201101/04/2014 RECORDED 01/28/20 12 3:24PM BY KITTY PALMER I ANNOTATI ON/ADDEN DUM Not Available [facility] 4 03:40:28 Degenera tion of interver tebral disc Completed 201101/04/2014 RECORDED 01/28/20 12 3:24PM BY KITTY PALMER I ANNOTATI ON/ADDEN DUM Not Available [facility] 4 03:40:28 Dizzines s and giddines s 133092412 Completed 201101/04/2014 RECORDED 01/28/20 12 3:24PM BY KITTY PALMER I ANNOTATI ON/ADDEN DUM Not Available [facility] 4 03:40:28 Otalgia 79881656 Completed 201101/04/2014 RECORDED 01/28/20 12 3:24PM BY KITTY PALMER I ANNOTATI ON/ADDEN DUM Not Available [facility] 4 03:40:28 Acute bronchit is 32057250 Completed 201112/11/2013 RECORDED 01/28/20 12 3:24PM BY KITTY PALMER I ANNOTATI ON/ADDEN DUM Not Available [facility] 4 14:09:51 Acute pharyngi tis 849994563 Completed 201112/11/2013 RECORDED 01/28/20 12 3:24PM BY KITTY PALMER I ANNOTATI ON/ADDEN DUM Not Available [facility] 4 14:09:51 Acute sinusiti s 08615436 Completed 201112/11/2013 IMPRESSI ON: FAILED TREATMEN T WITH BIAXIN.; RECORDED 01/28/20 12 3:24PM BY FARRUKH JIATI ON/ADDEN DUM Not Available [facility] 4 14:09:51 Cough 87403388 Completed 201112/11/2013 RECORDED 01/28/20 12 3:24PM BY KITTY PALMER I ANNOTATI ON/ADDEN DUM Not Available [facility] 4 14:09:51 Degenera tion of interver tebral disc Completed 201112/11/2013 RECORDED 01/28/20 12 3:24PM BY FARRUKH JIATI ON/ADDEN DUM Not Available Pending sale to [facility] 4 14:09:51 Dizzines s and giddines s 340913596 Completed 201112/11/2013 RECORDED 01/28/20 12 3:24PM BY KITTY PALMER I ANNOTATI ON/ADDEN DUM Not Available Pending sale to [facility] 4 14:09:51 Otalgia 07213050 Completed 201112/11/2013 RECORDED 01/28/20 12 3:24PM BY FARRUKH JIATI ON/ADDEN DUM Not Available Pending sale to [facility] 4 14:09:52 Influenz a vaccine needed 75536773081 06 Completed 201101/03/2014 RECORDED 02/02/20 12 2:58PM BY KITTY PALMER I, OFFICE VISIT Not Available Pending sale to [facility] 4 12:31:47 Influenz a vaccine needed 29826830539 06 Completed 201101/04/2014 RECORDED 02/02/20 12 2:58PM BY KITTY PALMER I, OFFICE VISIT Not Available Pending sale to [facility] 4 03:40:28 Influenz a vaccine needed 49661121572 06 Completed 201112/11/2013 RECORDED 02/02/20 12 2:58PM BY KITTY PALMER I, OFFICE VISIT Not Available Pending sale to [facility] 4 14:09:52 Adult health examinat ion Completed 201101/03/2014 RECORDED 05/02/20 12 10:01AM BY FARRUKH MCNEILLATI ON/ADDEN DUM Not Available [facility] 4 12:31:47 Adult health examinat ion Completed 201101/04/2014 RECORDED 05/02/20 12 10:01AM BY JAVIER MCNEILL ON/ADDEN DUM Not Available Pending sale to [facility] 4 03:40:28 Adult health examinat ion Completed 201112/11/2013 RECORDED 05/02/20 12 10:01AM BY JAVIER MCNEILL ON/ADDEN DUM Not Available Pending sale to [facility] 4 14:09:51 Anxiety state 970365233 Active 2012 No longer on meds and no longer an issue Gera Jang MD [address], [place], [address] , [facility] 6 11:21:32 Patient status finding 519915394 Completed 201202/17/2016 RECORDED 06/06/19 13 9:57AM BY KITTY PALMER I, OFFICE VISIT Gera Jang MD [address], [place], [address] , [facility] 6 11:20:59 Chest pain 90486109 Completed 201202/22/2020 PENG [place], [facility] 0 12:57:33 Overweig ht 596498407 Active 2012 PENG [place], [facility] 0 12:57:39 Palpitat ions 16223065 Active 2012 Jovanna kaur [place] null, [facility] 0 12:57:37 Glaucoma 31114174 Active 2012 Had surgery 2011; not on drops Gera Jang MD [address], [place], [address] , [facility] 6 11:22:24 Vitamin D deficien 11435018 Active 2017 Gera Jang MD [address] [facility] [address], [place], [address] , [facility] 8 19:36:58 Hyperthy roidism 02439899 Active 2022 Gera Jang MD [address] [facility] [address], [place], [address] , [facility] 3 12:44:41 Graves' disease 781170535 Active 2022 Seen by endo in [place]. Grea Jang MD [address] [facility] [address], [place], [address] , [facility] 3 09:25:21 Problem Notes None recorded. Procedures Surgical History Date Name Laterality Status Provider Name and Address Organization Details Recorded Time 06/14/19 19 Date of Last Colonoscopy completed [facility] 06/14/2018 15:42:41 06/14/19 19 Colonoscopy completed [facility] 06/14/2018 15:42:32 Imaging Results None recorded. Procedure Notes None recorded. Medical Equipment None Reported. Allergies Allergen ID Allergen Name Allergen Category Reaction Reaction Severity Criticality Documentation Date Start Date Code Code System Note Provider Name and Address Organization Details Recorded Time 1660 Product containin g penicilli n (product) medicatio n Not available Not available Not available 12/11/20132012 23216 8001 SNOMED Jovanna Joanne saez [place] null, [facility] 0 12:56:48 59015 sertralin e medicatio n palpitati ons moderate Not available 05/14/2019 29043 RxNorm twitc maryuri Gera rodríguez MD [address] [facility] [address], [place], [address], [facility] 9 12:25:02 Medications Name Sig Start [...] (BMI) Body weight Heart rate Oxygen saturation Body temperature Systolic And Diastolic Provider Name and Address Organization Details Last Updated DateTime 0 170.18 cm 39.5 kg/m2 461857. 28 g 60 /min 98 % 98.3 [degF] 118/62 mm[Hg] Kitty Lindquist [facility] 0 10:17:58 Date Recorded Body height Body mass index (BMI) Body weight Heart rate Oxygen saturation Body temperature Systolic And Diastolic Provider Name and Address Organization Details Last Updated DateTime 3 170.18 cm 41.3 kg/m2 189697. 59 g 119 /min 98 % 98.7 [degF] 130/83 mm[Hg] Geovanna Jefferson MA [facility] 3 14:39:52 Date Recorded Body height Provider Name an d Address Organization Details Last Updated DateTime 02/22/2020 170.18 cm Jovanna Young [place] [facility] 02/22/2020 12:56:37 Date Recorded Body height Body mass index (BMI) Body weight Heart rate Oxygen saturation Body temperature Systolic And Diastolic Provider Name and Address Organization Details Last Updated DateTime 9 170.18 cm 37.9 kg/m2 045716. 35 g 72 /min 98 % 98.4 [degF] 116/62 mm[Hg] Kitty Lindquist [facility] [place] 9 11:02:18 Date Recorded Body height Body mass index (BMI) Body weight Heart rate Oxygen saturation Body temperature Systolic And Diastolic Provider Name and Address Organization Details Last Updated DateTime 9 170.18 cm 38.7 kg/m2 678111. 32 g 75 /min 98 % 98.6 [degF] 114/72 mm[Hg] Kitty Lindquist [facility] 9 11:25:18 Social History Question Answer Notes LastModified by Organizat ion Details LastModified Time Tobacco Smoking Status Never Smoker Not Available [facility] 04/01/2020 03:36:36 Do You Have An Advance Directive? Yes [id number] Information not available 04/01/2020 Is Blood Transfusion Acceptable In An Emergency? Yes [id number] Information not available 04/01/2020 What Is Your Level Of Caffeine Consumption? Occasional [id number] Information not available 04/01/2020 How Much Tobacco Do You Chew? None [id number] Information not available 04/01/2020 What Type Of Diet Are You Following? REGULAR [id number] Information not available 04/01/2020 Which Illicit Or Recreational Drugs Have You Used? None [id number] Information not available 04/01/2020 Live Alone Or With Others? With Others (Rocco) And Two Children Payfir[employer] Information not available 11/27/2014 Do You Take Precautions To Prevent Distracted Driving? Yes [employer] Information not available 02/17/2016 How Often Do You Need To Have Someone Help You When You Read Instructions, Pamphlets, Or Other Written Material From Your Doctor Or Pharmacy? Never Pay[employer]ir[employer] Information not available 02/17/2016 Have You Served In The ? No Pay[employer] Information not available 02/17/2016 Have You Or [...] Of Your Most Recent Tobacco Screening? 02/22/2020 [id number] Information not available 04/01/2020 How Many Children Do You Have? 2 Son Born 2003 And Daughter Born 2005 [id number] Information not available 04/01/2020 Do You Use Protection During Sex? No [id number] Information not available 04/01/2020 Seat Belts Used Routinely Yes [facility] Information not available 02/17/2016 Are You Sexually Active? Yes [id number] Information not available 04/01/2020 Smoke Alarm In Home Yes [employer] Information not available 02/17/2016 At What Age Did You Start Smoking Tobacco? 0 [id number] Information not available 04/01/2020 Are You Passively Exposed To Smoke? No [facility] Information not available 02/17/2016 How Much Tobacco Do You Smoke? No [id number] Information not available 04/01/2020 Do You Use Sunscreen Routinely? Yes [id number] Information not available 04/01/2020 How Many Years Have You Smoked Tobacco? 0 [id number] Information not available 04/01/2020 Sex: Unknown Functional Status Question Answer Note LastModified by Organizat ion Details LastModified Time What is your level of alcohol consumption? Occasional [id number] Information not available 04/01/2020 Do you or have you ever used smokeless tobacco? Never used smokeless tobacco [id number] Information not available 04/01/2020 Are you currently employed? Yes [id number] Information not available 04/01/2020 Are you able to care for yourself independently ? Yes [id number] Information not available 04/01/2020 What is your occupation? [employer] Information not available 04/11/2019 Do you or have you ever used e-cigarettes or vape? Never used electronic cigarettes [id number] Information not available 04/01/2020 What is your exercise level? Occasional [id number] Information not available 04/01/2020 Mental Status None recorded. Family History Relationship Description Onset Age of this Age Resolved Age Notes LastModified by Organization Details LastModified Time Father Malignant neoplasm of colon 62 [email or web address] Not available 01/29 11:25:40 Paternal Grandmother Malignant lymphoma acennerazzo Not available 01/29 11:26:21 Brother Malignant neoplasm of colon 50 acennerazzo Not available 03/30 [...] valent, preservative free, pediatric 0 [facility] 14:32:24 Influenza, MDCK, quadrivalent, PF 2 completed [facility] 08/03/2022 14:32:24 COVID-19, mRNA, LNP-S, PF, 30 mcg/0.3 mL dose 1 completed [facility] 08/03/2022 14:32:24 COVID-19, mRNA, LNP-S, PF, 30 mcg/0.3 mL dose 1 completed [facility] 08/03/2022 14:32:24 COVID-19, mRNA, LNP-S, PF, 30 mcg/0.3 mL dose 1 completed [facility] 08/03/2022 14:32:24 COVID-19, mRNA, LNP-S, bivalent, PF, 30 mcg/0.3 mL dose 2 completed [facility] 08/03/2022 14:32:24 Influenza, split virus, quadrivalent, PF 1 completed [facility] 08/03/2022 14:32:25 Tdap 8 completed Not Available [facility] 12/11/2013 13:29:34 Influenza, split virus, quadrivalent, PF 6 completed Not Available [facility] 06/16/2019 02:22:04 Influenza, split virus, quadrivalent, PF 8 completed Not Available [facility] 06/16/2019 02:22:16 Td (adult), 2 Lf tetanus toxoid, preservative free, adsorbed 8 completed Not Available [facility] 06/16/2019 02:21:30 Influenza, split virus, quadrivalent, PF 9 completed Not Available [facility] 06/16/2019 02:22:10 Past Encounters Encounter ID Performer Location Encounter Start Date Encounter Closed Date Diagnosis/Indication Diagnosis SNOMED-CT Code Diagnosis ICD10 Code Diagnosis IMO Codes Diagnosis Note [id number] autoEComm erce [address] [facility] [place] [address] 11/17/2006 00:00:00 [id number] autoEComm erce [address] [facility] [place] [address] 12/07/2006 00:00:00 [id number] autoEComm erce [address] [facility] [place] [address] 04/12/2008 00:00:00 [id number] autoEComm erce [address] [facility] [place] [address] 03/12/2009 00:00:00 [id number] autoEComm erce [address] [facility] [place] [address] 03/15/2009 00:00:00 [id number] autoEComm erce [address] [facility] [place] [address] 04/29/2009 00:00:00 [id number] autoEComm erce [address] [facility] [place] [address] 09/29/2009 00:00:00 [id number] autoEComm erce [address] [facility] [place] [address] 10/29/2010 00:00:00 [id number] autoEComm erce [address] [facility] [place], [place] [address] 04/06/2011 00:00:00 [id number] autoEComm erce [address] [facility] [place], [place] [address] 06/28/2011 00:00:00 [id number] autoEComm erce [address] [facility] [place], [place] [address] 07/12/2011 00:00:00 [id number] autoEComm erce [address] [facility] [place], [place] [address] 02/02/2012 00:00:00 [id number] autoEComm erce [address] [facility] [place], [place] [address] 05/02/2012 00:00:00 [id number] autoEComm erce [address] [facility] [place], [place] [address] 06/06/2012 00:00:00 [id number] Gera Jang MD Main Office [address] [address] [place] [address] 11/27/2014 10:40:00 11/27/2014 11:33:20 Low back pain 744931485 appears to be muscular. She will call next week if not improving. [id number] Gera Jang MD Main Office [address] [address] [place] [address] 02/17/2016 10:34:54 02/17/2016 11:41:46 Adult health examination 270283766 Z00.00 Needs infl uenza immunization 086339017 Z23 Screening for malignant neoplasm of colon 892425730 Z12.11 Her father had colon cancer in his late 50's. [id number] Gera Jang MD Main Office [address] [address] [place] [address] 07/04/2017 14:31:16 07/04/2017 15:29:11 Low back pain 579036674 M54.5 appears to be muscular. She will call next week if not improving. [id number] Carmella Escobar PA-C Main Office [address] [address] [place] [address] 03/22/2018 15:04:48 03/22/2018 16:04:36 Needs influenza immunization 840044099 Z23 Dysuria [id number] R30.0 Abdominal pain [id number] R10.9 Unclear etiology L. mid back and mid abdomina; discomfort . Pt. reassured at this point examinatio n and urine test are completely normal./ Will order labs and xrays to investigat e further. Acute thor acic back pain [id number] M54.6 ? pleurisy. L./ side. [id number] Gera Jang MD Main Office [address] [address] 04/07/2018 10:16:55 04/07/2018 11:06:15 Adult health examination [id number] Z00.00 We will update her immunizati ons. She is UTD with [employer] care and mammogram. I encouraged her to make an appointmen t for a colonoscop y given her strong family hx. Requires a tetanus booster [id number] Z23 Screening for malignant neoplasm of colon 598646033 Z12.11 Her father had colon cancer in his late 50's. Flank pain [id number] R10 .9 [id number] Gera Jang MD Main Office [address] [place] [id number] 03/05/2019 15:13:02 03/05/2019 16:22:28 Benign paroxysmal positional vertigo 131774888 H81.10 Needs infl uenza immunization 848544646 Z23 Anxiety 17092356 F41.9 [id number] Gera Jang MD Main Office [facility] [address] [address] 04/11/2019 10:43:44 04/11/2019 11:42:04 Adult health examination [id number] Z00.00 She is UTD with immunizati ons, colonoscop y, [employer] care and mammogram. Anxiety state 156460689 F41.1 Will start a daily med. Vitamin D deficiency 347 77869 E55.9 Body mass index 30+ - obesity 068303746 E66.01 Z68.35 [id number] Gera Jang MD Main Office [address] [place] [address] 05/14/2019 11:13:50 05/14/2019 12:06:01 Anxiety state [id number] F41.1 Will stop sertraline because of muscle twitching and start lexapro. If not helpful or develops SE's we will refer her to Dr Matthew for a med consult. [id number] Gera Jang MD Main Office [address] [facility] [address] [place] [address] 06/26/2019 09:59:40 06/26/2019 10:58:18 Anxiety state 546857650 F41.1 Doing much better on lexapro and anxiety is no longer a problem. Could not tolerate zoloft because of muscle twitching. [id number] Jodee cantu MD [facility] [address] [address] [place] [address] 02/22/2020 12:51:33 02/22/2020 14:23:09 Asthmatic bronchitis 950921592 J45.909 Rest, hydration, start antibiotic and inhaler. If not improving pt will call back and consider adding oral steroid burst or taper. [id number] Gera Jang MD Main Office [address] [address] [place] [address] 08/03/2022 14:09:21 08/03/2022 15:35:05 Tachycardia 2456461 R00.0 Sinus tachycardi a most likely secondary to anxiety. Possible relation to previous viral infection. Will treat her anxiety. No meds specifical ly for her heart rate just yet. Generalize d anxiety disorder 09972765 F41.1 This has been an intermitte nt [...] Pradhan Member ID Guarantor Name 08/02/2022 1 [facility] ([facility]) [id number] Rocco Whitmore [id number] Rocco Whitmore 03/09/2024 1 [facility] (PP[facility]) [id number] Suzy Whitmore [id number] Rocco Whitmore 07/04/2017 1 [facility] (PPO) [id number] Rocco Whitmore [id number] Rocco Whitmore Notes Date Note Type Note Provider Name and Address Organization Details Recorded Time 9 text/html Generic HPI TemplateReported by PatientShe takes lorazepam prn anxiety but which helps but she feels that her anxiety is getting worse and would like to start a daily med. Gera Jang MD [address], [phone], [facility] 04/11/2019 12:32:54 9 text/html ROS as noted in the HPI She has seen a little improvement since taking the sertraline but has [...] with a lorazepam. Gera Jang MD [address] [address], [place], [phone], [facility] 05/14/2019 12:47:30 0 text/html Anxiety/DepressionReported by PatientHPIFor quality, patient reportssymptoms improved. For severity, patient reportsdenies suicidal ideations,able to maintain relationships, anddoes not interfere with activities of daily living. For context, patient reportsno major life stressors. For modifying factors, patient reportssocial supportandmedications as directed. For associated symptoms, patient reportsno significant weight gain,no significant weight loss,no visual/auditory hallucinations,mood good,no anxiety,no crying spells,no panic,sleeping well,appetite good,energy good, andno apathy.Muscle twitching went away after stopping the zoloftROS as noted in the HPI Gera Jang MD [address] [address], [place], [phone], [facility] 06/26/2019 11:01:08 0 text/html ROS as noted in the HPI TH visit for cough and wheezing with some slight SOB. She has had a cold for 2 weeks and the nasal congestion is better but tight cough has persisted. Very mild SOB when coughing, wheezing intermittently. No hx smoking, asthma or copd. No leg pain or swelling, no chest pain Glenda Sarah kirsten, [facility] 02/22/2020 13:37:58 3 text/html ROS as noted in the HPI She started with a viral infection a [...] celexa in the past. Gera Jang MD [address] [facility] [address], [place], [address], [facility] 08/04/2022 07:45:52 OBGyn Episode No OBEpisode recorded.
[2025-04-23 08:06] LABS: Free T4 (Free Thyroxine) 0.91 ng/dL (0.71-1.85); Thyroid Stimulating Hormone 2.55 uIU/mL (0.32-4.0)
== END 2025-04-23 06:36 | disposition home or self-care (01) ==
LOC: HO.LAB 06:35
PROVIDERS: PCP Internal Medicine; Visit Provider Internal Medicine Endocrinology, Diabetes & Metabolism
DX: E05.90 Thyrotoxicosis, unspecified without thyrotoxic crisis or storm (principal)
CPT/HCPCS: 36415; 84439; 84443; 84445; 84481

== ENCOUNTER 2025-04-29 07:51 | Outpatient (AMB) | payer OTHER, SELFPAY ==
--- NOTE | 2025-04-29 07:53 | MHC.OFFVIS ---
Vital Signs 04/29/25 07:56 Height 5 ft 7 in Weight 267 lb 0.382 oz BMI 41.8 BP 124/74 Blood Pressure Location Rt brachial Position Sitting Pulse 109 H Pulse Source Pulse Oximeter Pulse Oximetry (%) 98 Oxygen Delivery Method Room Air Intake Visit Reasons: f/u hyperthyroidism due to Graves Intake Note: Patient present today for Hyperthyroidism due to Graves Disease follow up. [employer] Required: No Accompanied by: Self / Same As Patient Allergies Penicillins Allergy (Verified 04/29/25 07:55) Rash sertraline Adverse Reaction (Verified 04/29/25 07:55) twitching Medication List - Last Reconciled 04/29/25 by Ravinder Aquino MD lorazepam 1 mg PO BID PRN methimazole 2.5 mg (1/2 x 5 mg) PO DAILY HPI Comments Details: 54 YO F withwho is seen in consultation for hyperthyroidism Currently denies any dysphagia or hoarseness of voice. Denies sensation of swelling in the neck or difficulty breathing while lying flat. Denies any tenderness in the neck. Has palpitations, tremors, weight loss, frequent bowel movements. Denies any ocular complaints, blurred or double vision. Denies hair loss, dry skin, + heat, . Denies any history of head or neck irradiation. Denies any family history of thyroid cance or thyroid problems . Denies use of kelp or seaweed . No use of biotin No use of amiodarone Labs: Consistent with Graves disease Patient currently on methimazole 2. 5 mg q.d. but misses doses Not taking propanolol . Feeling fine . No sx of hyperthyroidism . TSH was high normal The plan includes checking TSI antibodies to confirm remission status, as negative antibodies would indicate remission. The patient is advised to have the antibody test done as soon as possible, with follow-up planned in four weeks to reassess the condition. The patient is a 54 year old individual presenting for follow-up management of hyperthyroidism. The patient is currently taking low-dose methimazole 2.5 mg and reports tolerating it well. The patient reports feeling good overall, but notes experiencing high anxiety, an elevated heart rate, and shakiness on the day of the visit. [facility] Medical History (Updated 08/12/22 @ 15:04 by Ravinder Aquino MD) Hyperthyroidism Surgical History Hx of colonoscopy Family History Mother No known health problems Father Colon cancer Brother Colon cancer Social History Household Members: Spouse Household Members Other:: , 2 kids, mother Alcohol intake: current Alcohol intake frequency: does not drink Patient Tobacco Use Status: Never used Tobacco Second Hand Smoke Exposure: No Physical Exam Vital Signs: Last Vital Signs Pulse 109 H 04/29/25 07:56 BP 124/74 04/29/25 07:56 Pulse Ox 98 04/29/25 07:56 Oxygen Delivery Method Room Air 04/29/25 07:56 BMI result Body Mass Index 41.8 Const Other: Thyroid gland is larger size weighs about 25 g . There are no thyroid nodules palpated Assessment & Plan Assessment & Plan (1) Hyperthyroidism: Code(s): E05.90 - Thyrotoxicosis, unspecified without thyrotoxic crisis or storm Category: Medical Plan: This 54-year-old white female with a history of hyperthyroidism due to Graves disease. Currently being treated with methimazole 2.5 mg q.d.. She appears to be clinically and by biochemically euthyroid Plan is to TSI antibody when available to see if methimazole can be stopped the patient is in remission. Once again, went over options of therapy assuming antibodies are positive including continuation of anti thyroid medication vs surgery versus radioactive iodine therapy 1. Hyperthyroidism The patient's condition is stable with good thyroid hormone levels on a low dose of methimazole 2.5 mg. The patient is tolerating the medication well. The plan is contingent on pending thyroid antibody results. If the antibodies are negative, methimazole will likely be discontinued. If they are positive, options including continuing methimazole, thyroidectomy, or radioactive iodine were reviewed. The patient will continue the current low-dose methimazole pending lab results. A follow-up visit is scheduled for five months. . The patient had an opportunity to ask questions regarding treatment plan. The patient expressed understanding and agreement with the above treatment plan. Patient was informed and verbally consented to the use of an ambient scribe for clinic note documentation during this visit. Orders: Orders Triiodothyronine T3 Free Today E05.90 - Thyrotoxicosis, unspecified without thyrotoxic crisis or storm Coding Level of Care Code Est Pt Level 3 (63189) Diagnoses Hyperthyroidism E05.90
[2025-04-29 07:56] VITALS: BP 124/74; PULSE 109; O2SAT 98; BMI 41.8
== END 2025-04-29 08:19 | disposition home or self-care (01) ==
LOC: HO.ENCR 07:52
PROVIDERS: PCP Internal Medicine; Visit Provider Internal Medicine Endocrinology, Diabetes & Metabolism
DX: E05.90 Thyrotoxicosis, unspecified without thyrotoxic crisis or storm (principal)
CPT/HCPCS: 99213